=== PATIENT | female | born 1960 | race Caucasian/White ===

== ENCOUNTER → 2016-12-15 | Outpatient (CLI) | payer BC ==
[2016-12-15 08:09] LABS: CH 31.3; CHCM 33.2; HCT 43.7 % (34.0-46.0); HDW 2.66; HGB 14.1 gm/dL (11.4-16.0); MCH 30.6 pg (25.0-35.0); MCHC 32.4 g/dL (31.0-37.0); MCV 94.5 fL (80.0-100.0); Mean Platelet Volume 7.5; RBC 4.62 m/uL (3.80-5.40); RDW 13.3 % (11.5-15.5)
[2016-12-15 08:12] LABS: Partial Thromboplastin Time 23.6 sec (22.0-30.0); Prothrombin Time 10.1 sec (9.0-12.0)
[2016-12-15 08:23] LABS: Appearance,Urine Clear (Clear); Bilirubin,Urine Negative (Negative); Glucose,Urine (UA) Negative (Negative); Ketones,Urine Negative (Negative); Leukocyte Esterase,Urine Negative (Negative); Nitrite,Urine Negative (Negative); Protein,Urine Negative (Negative); Specific Gravity,Urine 1.019 (1.001-1.035); UA Billing (MACRO vs. MICRO) CHEM; Urobilinogen,Urine <2.0 mg/dL (<2.0)
== END | disposition home or self-care (01) ==
LOC: LABWHC1 07:08
PROVIDERS: ATTEND Neurological Surgery
DX: M47.812 Spondylosis without myelopathy or radiculopathy, cervical region (principal)
CPT/HCPCS: 36415; 81003; 85027; 85610; 85730; 87086; 93005

== ENCOUNTER → 2017-01-19 | Outpatient (CLI) | payer BC ==
[2017-01-19 13:31] VITALS: BP 143/85; PULSE 88; RESP 18; TEMP 98; BMI 44.4
--- NOTE | 2017-02-22 23:37 | P.PN ---
Progress Note - Text DATE OF SERVICE: 01/19/2017. CHIEF COMPLAINT: Bariatric Assessment. HISTORY OF PRESENT ILLNESS: Claire Nix is a 56-year-old female with a previous history of adjustable gastric band and subsequent removal. She reports severe gastroesophageal reflux disease including diabetes type 2, insulin-dependent. At her height of 5 feet 7-1/2 inches, her ideal body weight is 158 pounds. Her highest weight was 318 pounds. Today she comes in weighing 288 pounds. She has maintained a 30 pound weight loss. Percent excess weight loss is 19%. Body mass index is reduced from 49.1 down to 44.5. Total BMI point reduction 4.7. She is still 130 pounds overweight. Incidentally, she had recent spinal surgery for which she is wearing a soft collar. She states she has been cleared by her neurosurgeon to proceed with her gastric bypass. Now she comes in primarily to evaluate for gastric bypass to both address obesity as well as her reflux disease. PAST MEDICAL HISTORY: 1. Morbid obesity. 2. Diabetes type 2, noninsulin dependent. 3. Panniculitis. 4. Obstructive sleep apnea. 5. Osteoarthritis of the bilateral knees. 6. Osteoarthritis of the lower back. 7. Hypertension. 8. Gastroesophageal reflux disease. 9. Hiatal hernia. PAST SURGICAL HISTORY: 1. Adjustable gastric band with multiple revisions x3. 2. . 3. Tonsillectomy. 4. Colonoscopy one year ago. 5. Cervical fusion spinal surgery. MEDICATIONS: 1. Insulin. 2. Lisinopril. ALLERGIES: None listed. SOCIAL HISTORY: Former tobacco use. FAMILY HISTORY: Pertinent for morbid obesity including diabetes and hypertensive heart disease. REVIEW OF SYSTEMS: CONSTITUTIONAL: [place] body weight is 158 pounds for 5 feet 7-1/2 inches frame. Highest weight of 318 pounds. Present weight 288 pounds. Body mass index reduced from 49.1 down to 44.5. MUSCULOSKELETAL: History of recent cervical fusion spinal surgery, now in a soft collar. She has been cleared by her neurosurgeon. ENDOCRINE: History of insulin-dependent diabetes type 2. GASTROINTESTINAL: Has gastroesophageal reflux disease including diaphragmatic hiatal hernia. HEENT: No active troubles with vision or hearing. No reports of dysphagia. RESPIRATORY: Has obstructive sleep apnea. No recent pneumonia. Former tobacco user. CARDIOVASCULAR: No recent chest pain or heart attack or palpitations. NEURO: No reports of stroke or seizure disorders. PSYCH: No reports of active depression or suicidal ideation. No reports of anxiety. HEMATOLOGIC: No reports of easy bruising or bleeding. PHYSICAL EXAM: VITAL SIGNS: 98.08, 80, 16, 143/85, 5 feet 7-1/2 inches, 288 pounds. Body mass index of 44.5. ABDOMEN: Soft, nontender, nondistended. GENERAL: Well-developed female in no acute distress. HEENT: No scleral icterus. Extraocular movements grossly intact. Moist buccal mucosa. NECK: Soft cervical spine collar. No adenopathy. CHEST: Nonlabored respirations with equal bilateral excursions. CARDIOVASCULAR: Regular rate and rhythm. ABDOMEN: Obese, soft, nontender, nondistended. Multiple incisions noted. Pannus extends over pubis by over 8 cm with moderate hyperemia consistent with panniculitis. MUSCULOSKELETAL: No clubbing, cyanosis, or edema. NEURO: No focal or lateralizing signs. PSYCH: Appropriate affect. Alert and oriented to person, place, and time. LABS: Hemoglobin was normal at 14.1. Urinalysis is negative. EKG demonstrates normal sinus rhythm. Microbiology was negative for bacteria or urinary tract infection. ASSESSMENT: 1. Morbid obesity due to excess calories. 2. Body mass index reduced from 49.2 down to 44.5. 3. Dietary surveillance and counseling. 4. Obstructive sleep apnea. 5. Diabetes type 2, non-insulin dependent. 6. Osteoarthritis of the bilateral knees. 7. History of right knee effusion. 8. Osteoarthritis of the bilateral feet. 9. Panniculitis. 10. Family history of morbid obesity. 11. Family history of thyroid disorder. 12. Gastroesophageal reflux disease. 13. Intolerance to omeprazole. 14. History of hypothyroidism. 15. Osteoarthritis of lower back. 16. History of complications from adjustable gastric band. 17. Obstructive sleep apnea. PLAN: 1. I have gone over the [place] [facility]ariat[facility] surgery collaborative regarding complications and risk, between sleeve and Bobby-en-Y gastric bypass. As she is revisional procedure she is at high risk for leaks including strictures and infection. 2. Inpatient hospitalization anticipated for 2 nights. 3. DVT prophylaxis. 4. Antibiotic prophylaxis. 5. She has already obtained clearance from her neurosurgeon with regards to recent neck surgery and she will continue to wear soft collar. 6. She will have strict 4 weeks recovery after her weight loss procedure. 7. Recommend high-protein 2 week protein diet of 800 kcal. 8. Will need a CPAP machine for hospitalization.
== END | disposition home or self-care (01) ==
LOC: BARWHC3 13:14
PROVIDERS: ATTEND Surgery Plastic and Reconstructive Surgery
DX: Z01.818 Encounter for other preprocedural examination (principal); I10 Essential (primary) hypertension
CPT/HCPCS: 99211

== ENCOUNTER → 2017-01-24 | Outpatient (CLI) | payer BC ==
[2017-01-24 13:02] VITALS: BMI 45.2
== END | disposition home or self-care (01) ==
LOC: BARWHC3 09:00
PROVIDERS: ATTEND Surgery Plastic and Reconstructive Surgery
DX: E66.01 Morbid (severe) obesity due to excess calories (principal); Z71.3 Dietary counseling and surveillance; Z68.42 Body mass index [BMI] 45.0-49.9, adult
CPT/HCPCS: 97804

== ENCOUNTER → 2017-02-07 | Outpatient (CLI) | payer BC ==
[2017-02-07 08:38] LABS: Basophils # (A) 0.1 k/uL (0-0.2); Basophils % (A) 1 %; CHCM 33.7; Eosinophils # (A) 0.2 k/uL (0-0.7); Eosinophils % (A) 3 %; HCT 45.1 % (34.0-46.0); HGB 15.1 gm/dL (11.4-16.0); Luc # (Auto) 0.16; Luc % (Auto) 2; Lymphocytes # (A) 2.3 k/uL (1.0-4.8); Lymphocytes % (A) 28 %; MCHC 33.5 g/dL (31.0-37.0); MCV 92.5 fL (80.0-100.0); Mean Platelet Volume 7.3; Monocytes # (A) 0.4 k/uL (0-1.0); Monocytes % (A) 5 %; Neutrophils # (A) 5.1 k/uL (1.3-7.7); Neutrophils % (A) 61 %; RBC 4.88 m/uL (3.80-5.40); RDW 13.3 % (11.5-15.5); WBC 8.3 k/uL (3.8-10.6); WBC (Perox) 8.53
[2017-02-07 09:07] LABS: ALT 55 U/L (9-52); AST 41 U/L (14-36); Alkaline Phosphatase 88 U/L (38-126); Anion Gap 12 mmol/L; Blood Urea Nitrogen 18 mg/dL (7-17); Calcium 9.9 mg/dL (8.4-10.2); Carbon Dioxide 22 mmol/L (22-30); Chloride 104 mmol/L (98-107); Glucose 116 mg/dL (74-99); Non-African American GFR(MDRD) >60 (>60 ml/min/1.73 sqM); Potassium 4.5 mmol/L (3.5-5.1); Sodium 138 mmol/L (137-145); Total Bilirubin 0.7 mg/dL (0.2-1.3); Total Protein 7.9 g/dL (6.3-8.2)
== END | disposition home or self-care (01) ==
LOC: LABWHC1 08:13
PROVIDERS: ATTEND Surgery Plastic and Reconstructive Surgery
DX: Z01.812 Encounter for preprocedural laboratory examination (principal); I10 Essential (primary) hypertension; Z71.3 Dietary counseling and surveillance
CPT/HCPCS: 80053; 83036; 84439; 84443; 85025

== ENCOUNTER 2017-02-14 05:57 | Inpatient (IN) | payer BC ==
[~2017-02-14 05:57] MED LIST: DEXAMETHASONE SOD PHOSPHATE 10 MG/ML 1 ML VIAL IV ONE; LIDOCAINE 1% 20 ML VIAL (10MG/ML) FOR IV START INTRADERMA PRN; MIDAZOLAM 2 MG/2 ML VIAL IV PRN; SCOPOLAMINE 1.5MG/72HR PATCH TRANSDERM ONE
[2017-02-14] MEDS ORDERED: PANTOPRAZOLE 40 MG/10 ML VIAL IV STA (06:01)
[2017-02-14] MEDS ORDERED: CHLORHEXIDINE GLUCONATE 15 ML CUP MUCOUS MEM ONE (06:01)
[2017-02-14] MEDS ORDERED: ENOXAPARIN 40 MG/0.4 ML SYRINGE SQ STA (06:01)
[2017-02-14] MEDS ORDERED: ACETAMINOPHEN IV (For NPO) 1,000 MG in EMPTY BAG 1 BAG IVPB ONE (06:01)
--- NOTE | 2017-02-14 06:07 | P.GSHP ---
History of Present Illness H&P Date: 02/14/17 DATE OF SERVICE: 02/14/2017. CHIEF COMPLAINT: Bariatric assessment. HISTORY OF PRESENT ILLNESS: Claire Nix is a 56-year-old female who comes in with morbid obesity. She has tried other options for weight loss, including medical and surgical without improvement of her symptoms. She actually has severe gastroesophageal reflux disease. At her height of 5 feet 7-1/2 inches, her ideal body weight is up 158 pounds. She comes in today weighing 277 pounds. Her highest weight was 318 pounds. She has maintained a 40 pound weight loss. Body mass index is reduced from 49 down to 43.5. She has history of previous adjustable band and now presents for a gastric bypass. PAST MEDICAL HISTORY: 1. Morbid obesity. 2. Diabetes type 2, noninsulin dependent. 3. Panniculitis. 4. Obstructive sleep apnea. 5. Osteoarthritis of the bilateral knees. 6. Osteoarthritis of the lower back. 7. Hypertension. 8. Gastroesophageal reflux disease. 9. Hiatal hernia. PAST SURGICAL HISTORY: 1. Adjustable gastric band with multiple revisions x3. 2. . 3. Tonsillectomy. 4. Colonoscopy one year ago. MEDICATIONS: 1. Omeprazole. 2. Metformin. 3. Hypertensive medications. ALLERGIES: None listed. SOCIAL HISTORY: Former tobacco use. FAMILY HISTORY: Pertinent for morbid obesity including diabetes and hypertensive heart disease. REVIEW OF SYSTEMS: CONSTITUTIONAL: Eldridge body weight of 158 pounds. Highest weight of 318 pounds. Present weight is 277 pounds. Maintained weight loss is 40 pounds. Percent weight loss of 19%. Eldridge body weight of 158 pounds. Highest BMI 48.6. GASTROINTESTINAL: Has gastroesophageal reflux disease including diaphragmatic hiatal hernia. HEENT: No active troubles with vision or hearing. No reports of dysphagia. ENDOCRINE: History of diabetes type 2. There is a family history of thyroid disorder. RESPIRATORY: Has obstructive sleep apnea. No recent pneumonia. Former tobacco user. CARDIOVASCULAR: No recent chest pain or heart attack or palpitations. MUSCULOSKELETAL: Has osteoarthritis of the lower back, feet including knees. Has a knee effusion of the right side. NEURO: No reports of stroke or seizure disorders. PSYCH: No reports of active depression or suicidal ideation. No reports of anxiety. HEMATOLOGIC: No reports of easy bruising or bleeding. PHYSICAL EXAM: VITAL SIGNS: 97.8, 67, 161/101, 12. Weight 277 pounds. Height 5 feet 7-1/2 inches. ABDOMEN: Soft, nontender, nondistended. GENERAL: Well-developed female in no acute distress. HEENT: No scleral icterus. Extraocular movements grossly intact. Moist buccal mucosa. NECK: Supple without lymphadenopathy. CHEST: Nonlabored respirations with equal bilateral excursions. CARDIOVASCULAR: Regular rate and rhythm. ABDOMEN: Obese, soft, nontender, nondistended. Multiple incisions noted. Pannus extends over pubis by over 8 cm with moderate hyperemia consistent with panniculitis. MUSCULOSKELETAL: No clubbing, cyanosis, or edema. NEURO: No focal or lateralizing signs. PSYCH: Appropriate affect. Alert and oriented to person, place, and time. STUDIES: Upper endoscopy consistent with gastroesophageal reflux disease including superficial duodenal ulcers. Severe and chronic gastritis was identified. Pathology: Pathology report was consistent with chronic duodenitis without H. pylori bacteria. No evidence of sprue-like changes noted. ASSESSMENT: 1. Morbid obesity due to excess calories. 2. Body mass index 43.5. 3. Dietary surveillance and counseling. 4. Obstructive sleep apnea. 5. Diabetes type 2, non-insulin dependent. 6. Osteoarthritis of the bilateral knees. 7. History of right knee effusion. 8. Osteoarthritis of the bilateral feet. 9. Panniculitis. 10. Family history of morbid obesity. 11. Family history of thyroid disorder. 12. Gastroesophageal reflux disease. 13. Intolerance to omeprazole. 14. History of hypothyroidism. 15. Osteoarthritis of lower back. PLAN: 1. She has been discontinued off omeprazole and started on Zantac instead. 2. With her symptoms, she is evaluating for a Bobby-en-Y gastric bypass. [place] [facility] including outcomes were reviewed for comorbidity resolution including severity of complications. 3. As she is a revisional procedure, increased risk of leaks including gastric stricture was identified and reviewed. 4. Inpatient hospitalization greater than 2 nights advised. 5. DVT prophylaxis. 6. Antibiotic prophylaxis. Past Medical History Past Medical History: Diabetes Mellitus, GERD/Reflux, Hypertension, Osteoarthritis (OA), Sleep Apnea/CPAP/BIPAP Additional Past Medical History / Comment(s): "borderline thyroid" History of Any Multi-Drug Resistant Organisms: None Reported Past Surgical History: Bariatric Surgery, Section, Orthopedic Surgery, Tonsillectomy Additional Past Surgical History / Comment(s): lap band placed/3 follow up surgeries then later removed, anterior cervical fusion 12/22/16, Past Anesthesia/Blood Transfusion Reactions: No Reported Reaction Past Psychological History: No Psychological Hx Reported Smoking Status: Former smoker Past Alcohol Use History: Rare Additional Past Alcohol Use History / Comment(s): quit smoking 20 years ago, smoked for 15 yrs, 1 PPD Past Drug Use History: None Reported - Past Family History Father Family Medical History: Diabetes Mellitus, Thyroid Disorder Mother Family Medical History: Pulmonary Embolus Medications and Allergies Home Medications Medication Instructions Recorded Confirmed Type Lisinopril [Lisinopril] 10 mg PO QAM 08/24/16 02/09/17 History metFORMIN HCL [Glucophage] 500 mg PO DAILY 08/24/16 02/09/17 History Cholecalciferol [Vitamin D3] 5,000 unit PO DAILY 02/09/17 02/09/17 History Cyanocobalamin (Vitamin B-12) 2,500 mcg PO DAILY 02/09/17 02/09/17 History [Vitamin B12] Nystatin 100,000 Unit/gm Powd 1 applic TOPICAL BID PRN 02/09/17 02/09/17 History [Mycostatin Powder] Allergies Allergy/AdvReac Type Severity Reaction Status Date / Time Sulfa (Sulfonamide Allergy skin turns Verified 02/09/17 09:21 Antibiotics) red,lethargic environmental allergies Allergy Unknown Uncoded 02/09/17 09:21
[2017-02-14] MEDS ORDERED: LIDOCAINE 1% 20 ML VIAL (10MG/ML) FOR IV START INTRADERMA ONE (06:43)
[2017-02-14] MEDS: LACTATED RINGERS 1,000 ML IV SCH ×3 (06:43→12:14)
[2017-02-14 06:50] LABS: Glucose,Whole Blood 121 mg/dL (75-99)
[2017-02-14] MEDS: ONDANSETRON 4 MG/2 ML VIAL IVP ONE ×2 (06:52→11:01)
[2017-02-14] MEDS ORDERED: fentaNYL (PF) 50 MCG/ML 2 ML AMP ONE (07:30)
[2017-02-14] MEDS: ceFAZolin 2 GM in SODIUM CHLORIDE 0.9% 100 ML IVPB ONE ×2 (07:30→07:34)
[2017-02-14] MEDS ORDERED: PROPOFOL 10 MG/ML 20 ML VIAL IV ONE (07:30)
[2017-02-14] MEDS ORDERED: PHENYLEPHRINE-0.9% NACL SYG 1 MG/10 ML SYRINGE ONE (07:30)
[2017-02-14] MEDS ORDERED: MIDAZOLAM 2 MG/2 ML VIAL ONE (07:30)
[2017-02-14] MEDS ORDERED: ROCURONIUM BROMIDE 10 MG/ML 10 ML VIAL IV ONE (07:30)
[2017-02-14] MEDS ORDERED: SUCCINYLCHOLINE CHLORIDE VIAL 200 MG/10 ML VIAL IV ONE (07:30)
[2017-02-14] MEDS ORDERED: HYDROmorphone (PF) 1 MG/ML ONE (07:30)
[2017-02-14] MEDS ORDERED: LIDOCAINE 1% INJ 10MG/ML (20 ML MDV) ONE (07:30)
[2017-02-14] MEDS ORDERED: NEOSTIGMINE 1 MG/ML 10 ML VIAL ONE (07:30)
[2017-02-14] MEDS ORDERED: GLYCOPYRROLATE 0.2 MG/ML 2 ML VIAL ONE (07:30)
[2017-02-14] MEDS ORDERED: ePHEDrine 50 MG/ML 1 ML AMP ONE (07:30)
[2017-02-14] MEDS ORDERED: BUPIVACAIN-EPI 0.25%-1:200,000 30 ML VIAL SQ ONE ×2 (07:56→07:58)
[2017-02-14] MEDS ORDERED: LACTATED RINGERS 1,000 ML IV ONE ×2 (08:09→09:46)
--- NOTE | 2017-02-14 10:50 | P.PCN ---
Date of Procedure: 02/14/17 Preoperative Diagnosis: Morbid obesity Postoperative Diagnosis: Morbid obesity, intra-abdominal adhesions Procedure(s) Performed: Laparoscopic lysis of adhesions over 30 minutes, laparoscopic gastric bypass 75 cm antecolic antigastric, partial gastrectomy, proximal, intraoperative EGJ Anesthesia: GETA, local Surgeon: Roya Senior Estimated Blood Loss (ml): 20 Pathology: none sent Condition: stable Disposition: floor Operative Findings: Orogastric tube found within the staple line excised with partial gastrectomy, 18 cm placement of ports 22 cm thoracic length, 75 cm Bobby limb
[2017-02-14] MEDS: HYDROmorphone 1 MG/ML 1 ML SYRINGE IVP PRN ×8 (11:03→23:00)
[2017-02-14] MEDS: MAGNESIUM SULFATE-D5W PMX 1 GM in DEXTROSE/WATER 1 100ML.BAG IVPB SCH ×2 (11:08→12:25)
[2017-02-14] MEDS ORDERED: ONDANSETRON 4 MG/2 ML VIAL IVP PRN (11:26)
[2017-02-14] MEDS ORDERED: HYOSCYAMINE ORAL DROPS 1.875 MG/15 ML BOTTLE PO PRN (11:26)
[2017-02-14] MEDS ORDERED: SIMETHICONE 40 MG/0.6 ML DROPS 2,000 MG/30 ML BOTTLE PO PRN (11:26)
[2017-02-14] MEDS ORDERED: diphenhydrAMINE 50 MG/ML 1 ML VIAL IVP PRN (11:26)
[2017-02-14] MEDS ORDERED: NALOXONE 0.4 MG/ML 1 ML VIAL IV PRN (11:26)
[2017-02-14] MEDS ORDERED: INSULIN LISPRO (humaLOG) 300 UNIT/3 ML VIAL SQ ONE (11:28)
[2017-02-14 11:30] LABS: Glucose,Whole Blood 211 mg/dL (75-99)
[2017-02-14] MEDS ORDERED: diphenhydrAMINE 50 MG/ML 1 ML VIAL IVP ONE (11:32)
[2017-02-14] MEDS: 0.9% NACL WITH KCL 20 MEQ/L 1,000 ML IV SCH ×2 (12:24→20:22)
[2017-02-14] MEDS: ALBUTEROL NEBULIZED 2.5 MG/3 ML INHALATION SCH ×3 (13:39→19:54)
[2017-02-14] MEDS: INSULIN LISPRO (humaLOG) 300 UNIT/3 ML VIAL SQ SCH ×2 (14:11→17:51)
[2017-02-14] MEDS: metroNIDAZOLE-NS PMX 500 MG in SALINE 1 100ML.BAG IVPB SCH (16:03)
[2017-02-14 16:15] VITALS: BMI 43.1
[2017-02-14] MEDS: ceFAZolin 3 GM in SODIUM CHLORIDE 0.9% 100 ML IVPB SCH (17:06)
[2017-02-14 17:39] LABS: Glucose,Whole Blood 176 mg/dL (75-99)
[2017-02-14 20:04] LABS: Glucose,Whole Blood 143 mg/dL (75-99)
[2017-02-15] MEDS: metroNIDAZOLE-NS PMX 500 MG in SALINE 1 100ML.BAG IVPB SCH ×3 (00:52→16:24)
[2017-02-15] MEDS: ceFAZolin 3 GM in SODIUM CHLORIDE 0.9% 100 ML IVPB SCH ×3 (01:55→17:13)
[2017-02-15] MEDS: HYDROmorphone 1 MG/ML 1 ML SYRINGE IVP PRN ×2 (03:43→19:58)
[2017-02-15] MEDS: 0.9% NACL WITH KCL 20 MEQ/L 1,000 ML IV SCH ×2 (04:20→07:49)
[2017-02-15] MEDS: LACTATED RINGERS 1,000 ML IV SCH ×2 (05:50→05:51)
[2017-02-15 06:53] LABS: Glucose,Whole Blood 124 mg/dL (75-99)
[2017-02-15] MEDS: INSULIN LISPRO (humaLOG) 300 UNIT/3 ML VIAL SQ SCH ×4 (07:29→22:01)
[2017-02-15 07:43] LABS: Basophils % (A) 0 %; CH 30.9; Eosinophils % (A) 0 %; HCT 36.8 % (34.0-46.0); HDW 2.68; HGB 12.7 gm/dL (11.4-16.0); Luc # (Auto) 0.11; Luc % (Auto) 1; Lymphocytes # (A) 1.6 k/uL (1.0-4.8); Lymphocytes % (A) 15 %; MCH 31.5 pg (25.0-35.0); MCHC 34.5 g/dL (31.0-37.0); MCV 91.4 fL (80.0-100.0); Mean Platelet Volume 7.7; Monocytes # (A) 0.6 k/uL (0-1.0); Monocytes % (A) 5 %; Neutrophils # (A) 8.1 k/uL (1.3-7.7); Neutrophils % (A) 78 %; RBC 4.03 m/uL (3.80-5.40); RDW 13.9 % (11.5-15.5); WBC 10.4 k/uL (3.8-10.6); WBC (Perox) 11.06
[2017-02-15] MEDS: ENOXAPARIN 40 MG/0.4 ML SYRINGE SQ SCH ×2 (07:43→22:01)
[2017-02-15] MEDS: LISINOPRIL 10 MG TAB PO SCH ×2 (07:43→07:51)
[2017-02-15] MEDS: PANTOPRAZOLE 40 MG/10 ML VIAL IV SCH (07:43)
[2017-02-15 07:59] LABS: Anion Gap 10 mmol/L; Blood Urea Nitrogen 8 mg/dL (7-17); Calcium 8.7 mg/dL (8.4-10.2); Carbon Dioxide 24 mmol/L (22-30); Chloride 106 mmol/L (98-107); Magnesium 2.2 mg/dL (1.6-2.3); Non-African American GFR(MDRD) >60 (>60 ml/min/1.73 sqM); Phosphorous 3.3 mg/dL (2.5-4.5); Potassium 4.6 mmol/L (3.5-5.1); Sodium 140 mmol/L (137-145)
[2017-02-15 08:11] LABS: Hemoglobin A1C 6.9 % (4.2-6.1)
[2017-02-15] MEDS: HYDROcodone/APAP 15 ML SOLUTION PO PRN ×2 (08:47→16:24)
[2017-02-15] MEDS ORDERED: SODIUM CHLORIDE 0.9% 1,000 ML BAG ONE (08:56)
[2017-02-15] MEDS: 1: MVI, ADULT NO.4 WITH VIT K 10 ML, THIAMINE 100 MG, FOLIC ACID 1 MG, POTASSIUM CHLORID IV SCH ×12 (08:56→17:16)
[2017-02-15] MEDS: ALBUTEROL NEBULIZED 2.5 MG/3 ML INHALATION SCH ×4 (10:50→19:50)
[2017-02-15 11:23] LABS: Glucose,Whole Blood 118 mg/dL (75-99)
--- NOTE | 2017-02-15 13:08 | P.PN ---
Subjective A 56-year-old female being seen on rounds this morning is currently resting in bed. Patient states has been up to the bathroom but not in the hallway. Patient reports having surgical tenderness. Patient is postop done on February 14 Laparoscopic lysis of adhesions over 30 minutes, laparoscopic gastric bypass 75 cm antecolic antigastric, partial gastrectomy, proximal, intraoperative EGJ for morbid obesity with intra-abdominal adhesions Objective - Vital Signs Vital signs: Vital Signs Temp 98.5 F 02/15/17 07:00 Pulse 70 02/15/17 08:00 Resp 16 02/15/17 08:00 BP 111/77 02/15/17 07:00 Pulse Ox 95 02/15/17 07:00 Intake & Output 02/14/17 02/15/17 02/15/17 18:59 06:59 18:59 Intake Total 2389 1550 20 Output Total 845 440 700 Balance 1544 1110 -680 Weight 124.829 kg Intake: IV 2389 1550 0.9% NaCl with KCl 20 Meq 1350 /l 1,000 ml @ 150 mls/hr IV .[id number] [facility] Rx#: [id number] ceFAZolin 2 gm In Sodium 100 Chloride 0.9% 100 ml @ 100 mls/hr IVPB ONCE ONE Rx#:[id number] metroNIDAZOLE-NS PMX 500 100 mg In Saline 1 100ml.bag @ 100 mls/hr IVPB Q8HR [facility] Rx#:[id number] Oral 20 Output: Drainage 40 Left Lower 40 Urine 825 400 700 Uretheral (Fontaine) 400 700 Estimated Blood Loss 20 Other: Voiding Method Indwelling Catheter Indwelling Catheter Indwelling Catheter - Exam Physical exam 56-year-old female resting in bed with a cervical collar in place appears in no acute distress Lungs essentially clear with adequate air movement currently on room air sats are 95% Heart S1-S2 audible and regular Abdomen obese soft surgical sites no redness slight surgical tenderness tolerating clear liquid diet states passing gas no stool states urinating no difficulty Extremities a trace pedal edema bilaterally - Labs CBC & Chem 7: 02/15/17 07:00 02/15/17 07:00 Labs: Abnormal Lab Results - Last 24 Hours (Table) 02/14/17 02/14/17 02/15/17 Range/Units 17:38 20:02 06:46 Neutrophils # (1.3-7.7) k/uL POC Glucose (mg/dL) 176 H 143 H 124 H (75-99) mg/dL Hemoglobin A1c (4.2-6.1) % 02/15/17 02/15/17 02/15/17 Range/Units 07:00 07:00 11:21 Neutrophils # 8.1 H (1.3-7.7) k/uL POC Glucose (mg/dL) 118 H (75-99) mg/dL Hemoglobin A1c 6.9 H (4.2-6.1) % Assessment and Plan Plan: Impression Postop February 14 2017 Laparoscopic lysis of adhesions over 30 minutes, laparoscopic gastric bypass 75 cm antecolic antigastric, partial gastrectomy, proximal, intraoperative EGJ for morbid obesity Morbid obesity BMI 43 type 2 diabetes [id number] Obstructive sleep apnea Hiatal hernia Adjustable gastric band with multiple revisions 3 Osteoarthritis of the bilateral knees and the lower back Hypertension essential Gastroesophageal reflux disease A recent 2 month prior cervical surgery Panniculitis Plan Continue postop surgical care as ordered Increase activity to the level of tolerance DVT and GI prophylaxis Antibiotics prophylaxis Inpatient hospitalization 2 nights advised Further recommendations pending The above dictated assessment and findings were discussed with dr Parrish Malcolm and the plan of care have been dictated as directed. Bev Golden nurse practitioner acting as a scribe for Dr. Senior
[2017-02-15 16:27] LABS: Glucose,Whole Blood 116 mg/dL (75-99)
[2017-02-15 20:13] LABS: Glucose,Whole Blood 131 mg/dL (75-99)
[2017-02-16] MEDS: metroNIDAZOLE-NS PMX 500 MG in SALINE 1 100ML.BAG IVPB SCH ×2 (00:07→10:13)
[2017-02-16] MEDS: HYDROmorphone 1 MG/ML 1 ML SYRINGE IVP PRN (01:05)
[2017-02-16] MEDS: ceFAZolin 3 GM in SODIUM CHLORIDE 0.9% 100 ML IVPB SCH ×2 (01:10→07:45)
[2017-02-16 02:28] VITALS: RESP 16
[2017-02-16] MEDS: 1: MVI, ADULT NO.4 WITH VIT K 10 ML, THIAMINE 100 MG, FOLIC ACID 1 MG, POTASSIUM CHLORID IV SCH ×12 (05:05→05:06)
[2017-02-16] MEDS: LACTATED RINGERS 1,000 ML IV SCH (05:07)
[2017-02-16 07:00] LABS: Glucose,Whole Blood 95 mg/dL (75-99)
[2017-02-16] MEDS: ALBUTEROL NEBULIZED 2.5 MG/3 ML INHALATION SCH ×2 (07:00→12:05)
[2017-02-16] MEDS: LISINOPRIL 10 MG TAB PO SCH (07:45)
[2017-02-16] MEDS: PANTOPRAZOLE 40 MG/10 ML VIAL IV SCH (07:45)
[2017-02-16] MEDS: INSULIN LISPRO (humaLOG) 300 UNIT/3 ML VIAL SQ SCH (07:52)
[2017-02-16] MEDS ORDERED: BISACODYL 5 MG TABLET.DR PO PRN (08:00)
--- NOTE | 2017-02-16 08:08 | P.OP ---
Date of Procedure: 02/14/17 Description of Procedure: SURGEON: ERNESTINE MINOR MD HAND MOLDER: AKASH BROWN PREOPERATIVE DIAGNOSES: 1. Morbid obesity due to excess calories. 2. Body mass index 43.1. 3. Dietary surveillance and counseling. 4. Obstructive sleep apnea. 5. Diabetes type 2, non-insulin dependent. 6. Osteoarthritis of the bilateral knees. 7. History of right knee effusion. 8. Osteoarthritis of the bilateral feet. 9. Panniculitis. 10. Family history of morbid obesity. 11. Family history of thyroid disorder. 12. Gastroesophageal reflux disease. 13. Intolerance to omeprazole. 14. History of hypothyroidism. 15. Osteoarthritis of lower back. 16. Osteoarthritis of the cervical spine. POSTOPERATIVE DIAGNOSES: 1. Morbid obesity due to excess calories. 2. Body mass index 43.1. 3. Dietary surveillance and counseling. 4. Obstructive sleep apnea. 5. Diabetes type 2, non-insulin dependent. 6. Osteoarthritis of the bilateral knees. 7. History of right knee effusion. 8. Osteoarthritis of the bilateral feet. 9. Panniculitis. 10. Family history of morbid obesity. 11. Family history of thyroid disorder. 12. Gastroesophageal reflux disease. 13. Intolerance to omeprazole. 14. History of hypothyroidism. 15. Osteoarthritis of lower back. 16. Osteoarthritis of the cervical spine. 17. Intra-abdominal and peritoneal adhesions. OPERATION: 1. Laparoscopic lysis of adhesions, over 30 minutes. 2. Laparoscopic Bobby-en-Y gastric bypass, 75 cm antecolic antegastric Bobby limb. 3. Intraoperative esophagogastrojejunoscopy. 4. Laparoscopic partial gastrectomy, proximal stomach. ANESTHESIA: General with 90 mL 0.25% Marcaine with epinephrine. ESTIMATED BLOOD LOSS: 20 mL SPECIMENS REMOVED: Partial gastrectomy, proximal stomach. COMPLICATIONS: None. INDICATIONS: The patient is a pleasant 50-year-old female with a history of morbid obesity. She initially presented to the [facility] with complications from her adjustable gastric band with severe gastroesophageal reflux disease. She had her band removal prior. Now she presents for conversion to a Bobby-en-Y gastric bypass. Benefits and risks of the procedure, including increased risk for leak, surgical complications, nausea, vomiting, gastrointestinal anastomotic stricture, were described at length via a second-generation bariatric consent form. She had given informed consent. DESCRIPTION: The patient was brought into the operating room theater. She was placed on a split leg table. Preoperatively she had received Lovenox subcutaneously for DVT prophylaxis. Additionally she had undergone Peridex oral solution as an oral decontaminant. After general induction, the abdomen was prepped and draped in standard sterile fashion. A Fontaine catheter was placed. At her height of approximately 5 feet 7.5 inch, her height from her xiphoid to her umbilicus was 22 cm. Initial attention was brought along the left upper quadrant, whereby a 0-degree 10 mm trocar laparoscopic trocar entry was performed at the left upper abdomen. The abdominal cavity was entered. Next a separate 12 mm port was placed along the midclavicular line under direct visualization. Dense adhesions were found along the proximal portion of the stomach consistent with her prior adjustable gastric band. Next a 12 mm port was placed approximately 18 cm distally and off to the left of midline for placement of the camera port. Additional two 12 mm trocars were placed along the right upper abdomen at the right costal margin including the right midclavicular line in a V-type fashion. No hepatomegaly was identified. Placement of a medium-sized George liver retractor was used to elevate the left lobe of the liver for greater visualization of the upper abdomen, particularly the superior pole of the stomach. The George liver retractor was held in place using an iron data analysis intern. Initially dense adhesions were found of the stomach to the inferior portion of the liver, for which careful lysis of adhesions occurred for complete exposure of the superior pole of the stomach. Extensive lysis of adhesion occurred for over 30 minutes. No gastrostomy had occurred during this portion of the case. Along the lesser curvature of the stomach between the second and third veins, dissection was made along the retrogastric space to allow first firing of the Covidien Tri-Staple purple load. Once adequately mobilized, an initial firing using a 60 mm purple load was performed perpendicular to the lesser curvature of the stomach. To completely divide the pouch from the remnant stomach, tissue reinforced 60 mm purple loads were fired towards the angle of His; additional extensive lysis of adhesions was performed to adequately visualize and divide the stomach. Along the superior staple line of the gastric pouch and remnant, a nasogastric tube was found incorporated along the staple line. The nasogastric tube was dissected and cut out from the gastric pouch and remnant. The nasogastric tube was removed by the nurse toll settlement clerk. Additional staplers were used to resect the proximal portion of the remnant stomach for a partial gastrectomy. The gastric pouch was revised closing the defect. Once the stomach was completely divided, attention was brought to placement of the Orvil. Using the help of the nurse toll settlement clerk, a 25 mm Orvil was placed along the posterior oropharynx and advanced into the pouch. The Orvil was placed anterior to the staple line. A gastrotomy was created for removal of the tubing. Once the sutures were encountered these were divided and the tubing and Orvil were disconnected. Using aseptic technique all ports and instruments were exchanged with handling of the Orvil tubing. The transverse mesocolon, particularly of the omentum, was very thick. The patient had been flattened at this point. The transverse mesocolon, including the omentum, was reflected over the stomach. The ligament of Treitz was identified and measured 60 cm antegrade. The jejunum was divided at this point. The biliopancreatic limb was held in place by the dietitian assistant. The Bobby limb was then measured 75 cm distally. At 75 cm along the anti-mesenteric border of the Bobby limb, a jejunojejunostomy was proposed whereby enterotomies were created along the biliopancreatic limb including the Bobby limb. A bidirectional fire was performed whereby from the left and right side of the patient using two 45 mm campo loads, creating a 90 mm jejunojejunostomy. The defect was then closed using a 60 mm campo load. The jejunojejunostomy was found to be hemostatic. Attention was now brought to the creation of the gastrojejunostomy. Patient was then placed in reverse Trendelenburg. As the Orvil had been placed, the blind jejunal limb was brought proximally into the upper abdomen. No tension or torsion was found upon the Bobby limb, which was brought along the upper abdomen. The blind jejunal limb was opened using a cordless Harmonic scalpel. The 25 EEA stapler was brought through the left anterior lateral port site. The EEA stapler was brought through the open jejunal limb and its needle was deployed at the antimesenteric border where the anvil were mated for approximately 2 minutes upon firing. The stapler was removed. Donuts were found to be intact. Interrupted 2-0 Vicryl and Endo Stitch were used to reinforce the anastomosis. The open jejunal limb defect was closed using a 60 mm campo load. I then went to the head of the bed to perform the esophagogastrojejunoscopy and a leak test. An Olympus gastroscope was passed along the posterior oropharynx. The scope was passed down to the proximal portion of the pouch, whereby no active bleeding was encountered. Excellent visualization of the gastrojejunostomy anastomosis, including the Bobby limb was encountered for which endoscopic image was obtained. The anastomosis was found to be patent. The gastrointestinal tract was desufflated. No evidence of intraoperative leak was encountered. I then went back to the bedside of the patient, whereby with coordinated effort of the dietitian assistant, the fluid from the leak test was aspirated from the upper abdominal cavity. Closure of the mesenteric defects was performed, initially of the Rider defect using 2-0 silk on an Endo Stitch and a Lapra-Ty. Attention was brought to closure of the jejunojejunostomy mesenteric defect, which was also closed in a similar fashion. Tisseel was placed circumferentially over the anastomosis. A round #19 drain was placed anterior to the gastrojejunal anastomosis via entry of the left lateral right upper port site. A 2-0 nylon drain stitch was placed to tack the drain to the skin. Bulb suction was placed to the CJ tubing. All instruments and pneumoperitoneum were evacuated from the abdominal cavity. The port correlating with the EEA stapler device was copiously irrigated with 3 L of warm normal saline solution. The incision was also irrigated with 50 mL of hydrogen peroxide. The fascial defect was closed using a Reji Oconnell and 0 Vicryl in an interrupted fashion. Lower Brule drain was placed and tacked to the 2-0 Nylon along the left upper abdominal port corresponding to the EEA stapler. The rest of incisions were reapproximated using 3-0 Vicryl for deep subcutaneous tissue and dermis followed by 4-0 Monocryl in a running subcuticular fashion. Dermabond was applied to the skin. At the end of the procedure, needle, sponge and instrument count had been verified correct by the surgical scheduler. OptiFoam antibiotic dressing was placed along the left upper port site corresponding to EEA stapler. Total [id number] time of 164 minutes. The patient was deemed ASA2. She had tolerated the procedure well and was taken to the postanesthesia unit in stable condition. FINDINGS: 1. No moderate hepatomegaly. 2. Negative intraoperative esophagogastrojejunoscopy leak test. 3. Moderate adhesions of the upper abdomen, including at the upper pole of the stomach, necessitating at least 30+ minutes of additional lysis of adhesions. 4. Multiple staplers used for creation of her gastric pouch and partial gastrectomy. 5. Partial gastrectomy of superior pole of stomach performed to excise old adjustable gastric band cicatrix and to minimize any potential leaks or gastrogastric fistula.
[2017-02-16 08:14] VITALS: BP 125/67; TEMP 97.6
[2017-02-16] MEDS: ENOXAPARIN 40 MG/0.4 ML SYRINGE SQ SCH (09:14)
[2017-02-16] MEDS: HYDROcodone/APAP 15 ML SOLUTION PO PRN (09:14)
[2017-02-16 11:49] LABS: Glucose,Whole Blood 117 mg/dL (75-99)
[2017-02-16 12:14] VITALS: PULSE 79
--- NOTE | 2017-02-16 12:50 | P.DS ---
Providers Date of admission: 02/14/17 05:57 Expected date of discharge: 02/16/17 Attending physician: Roya Senior Primary care physician: [facility] Course: HISTORY OF PRESENT ILLNESS: Claire Nix is a 56-year-old female who comes in with morbid obesity. She has tried other options for weight loss, including medical and surgical without improvement of her symptoms. She actually has severe gastroesophageal reflux disease. At her height of 5 feet 7-1/2 inches, her ideal body weight is up 158 pounds. She comes in today weighing 277 pounds. Her highest weight was 318 pounds. She has maintained a 40 pound weight loss. Body mass index is reduced from 49 down to 43.5. She has history of previous adjustable band and now presents for a gastric bypass. Patient is postop done on February 14 Laparoscopic lysis of adhesions over 30 minutes, laparoscopic gastric bypass 75 cm antecolic antigastric, partial gastrectomy, proximal, intraoperative EGJ for morbid obesity with intra- abdominal adhesions There were no postop events head on the day of discharge patient was felt to be appropriate to be discharged home. It was stressed to the patient by the surgeon to stop taking her diabetic medication metformin and she would see the patient in the office this coming Tuesday Impression discharge diagnosis Postop February 14 2017 Laparoscopic lysis of adhesions over 30 minutes, laparoscopic gastric bypass 75 cm antecolic antigastric, partial gastrectomy, proximal, intraoperative EGJ for morbid obesity Morbid obesity BMI 43 type 2 diabetes [id number] Obstructive sleep apnea Hiatal hernia Adjustable gastric band with multiple revisions 3 Osteoarthritis of the bilateral knees and the lower back Hypertension essential Gastroesophageal reflux disease A recent 2 month prior cervical surgery Panniculitis Hypertension The above dictated assessment and findings were discussed with dr Senior. Impression and the plan of care have been dictated as directed. Bev Golden nurse practitioner acting as a scribe for dr senior Plan - Discharge Summary New Discharge Prescriptions: HYDROcodone/APAP [Meherrin Elixir 7.5-325Mg/15Ml] 15 ml PO Q4HR PRN #400 ml PRN Reason: Pain Omeprazole 40 mg PO DAILY #90 capsule. Discharge Medication List Lisinopril 10 mg PO QAM 08/24/16 [History] Nystatin 100,000 Unit/gm Powd [Mycostatin Powder] 1 applic TOPICAL BID PRN 02/09 [History] HYDROcodone/APAP [Meherrin Elixir 7.5-325Mg/15Ml] 15 ml PO Q4HR PRN #400 ml [Rx] Omeprazole 40 mg PO DAILY #90 capsule. 02/16/17 [Rx] Follow up Appointment(s)/Referral(s): Roya Senior MD [STAFF PHYSICIAN] - 02/18/17 8:00 am ([facility]) Activity/Diet/Wound Care/Special Instructions: Bariatric diet Do not take metformin Discharge Disposition: HOME SELF-CARE
--- NOTE | 2017-03-18 06:36 | P.PN ---
Subjective Principal diagnosis: Morbid obesity She is doing well. Her pain is well-controlled. No complaints. CJ is serosanguineous. Objective - Vital Signs Vital signs: Vital Signs Temp 97.4 F L 02/15/17 01:25 Pulse 69 02/15/17 01:27 Resp 16 02/15/17 01:25 BP 106/59 02/15/17 01:25 Pulse Ox 97 02/15/17 01:27 Intake & Output 02/14/17 02/15/17 02/15/17 18:59 06:59 18:59 Intake Total 2389 1550 Output Total 845 440 Balance 1544 1110 Weight 124.829 kg Intake: IV 2389 1550 0.9% NaCl with KCl 20 Meq 1350 /l 1,000 ml @ 150 mls/hr IV .[id number] [facility] Rx#: [id number] ceFAZolin 2 gm In Sodium 100 Chloride 0.9% 100 ml @ 100 mls/hr IVPB ONCE ONE Rx#:[id number] metroNIDAZOLE-NS PMX 500 100 mg In Saline 1 100ml.bag @ 100 mls/hr IVPB Q8HR [facility] Rx#:[id number] Output: Drainage 40 Left Lower 40 Urine 825 400 Uretheral ([place]) 400 Estimated Blood Loss 20 Other: Voiding Method Indwelling Catheter Indwelling Catheter - Exam GENERAL: Well developed and in no acute distress. Pleasant. HEENT: No sclera icterus. Extraocular movements grossly intact. Moist buccal mucosa. Head is atraumatic, normocephalic. Hears conversational speech. No nasal drainage. NECK: Neck brace intact. CHEST: Non-labored respirations and equal bilateral excursions. CARDIOVASCULAR: Regular rate and rhythm. Palpable 2+ radial pulses. ABDOMEN: Soft, minimal jay-incisional tenderness. No cellulitis. CJ serosanguineous. Minimal abdominal distention. MUSCULOSKELETAL: No clubbing, cyanosis or edema. NEUROLOGIC: No focal or lateralizing signs. PSYCH: Appropriate affect. Alert and oriented to person, place and time. - Labs CBC & Chem 7: 02/15/17 07:00 02/15/17 07:00 Labs: Abnormal Lab Results - Last 24 Hours (Table) 02/14/17 02/14/17 02/14/17 Range/Units 11:20 17:38 20:02 POC Glucose (mg/dL) 211 H 176 H 143 H (75-99) mg/dL 02/15/17 Range/Units 06:46 POC Glucose (mg/dL) 124 H (75-99) mg/dL Assessment and Plan (1) Status post gastric bypass for obesity Status: Acute (2) Diabetes type 2, controlled Status: Acute (3) Hypertension Status: Acute (4) Sleep apnea Status: Acute (5) BMI 40.0-44.9, adult Status: Acute (6) Morbid obesity Status: Acute Plan: 1. Continue CJ drain. 2. Bariatric clear liquid diet.
== END 2017-02-16 14:16 | disposition home or self-care (01) | DRG 621 ==
LOC: 2ORWHC 05:57 → 3SUR 10:42
PROVIDERS: ADMIT Surgery Plastic and Reconstructive Surgery; ATTEND Surgery Plastic and Reconstructive Surgery
PROC: 0DN64ZZ Release Stomach, Percutaneous Endoscopic Approach (ICD-10-PCS; 2017-02-14)
PROC: 0DB64ZZ Excision of Stomach, Percutaneous Endoscopic Approach (ICD-10-PCS; 2017-02-14)
PROC: 0DJ08ZZ Inspection of Upper Intestinal Tract, Via Natural or Artificial Opening Endoscopic (ICD-10-PCS; 2017-02-14)
PROC: 0D164ZA Bypass Stomach to Jejunum, Percutaneous Endoscopic Approach (ICD-10-PCS; principal; 2017-02-14 07:30)
DX: E66.01 Morbid (severe) obesity due to excess calories (principal); I10 Essential (primary) hypertension; Z68.41 Body mass index [BMI] 40.0-44.9, adult; E03.9 Hypothyroidism, unspecified; K21.9 Gastro-esophageal reflux disease without esophagitis; K66.0 Peritoneal adhesions (postprocedural) (postinfection); E11.9 Type 2 diabetes mellitus without complications; G47.33 Obstructive sleep apnea (adult) (pediatric); K44.9 Diaphragmatic hernia without obstruction or gangrene; M17.0 Bilateral primary osteoarthritis of knee; M19.072 Primary osteoarthritis, left ankle and foot; M19.071 Primary osteoarthritis, right ankle and foot; M47.9 Spondylosis, unspecified; M79.3 Panniculitis, unspecified; Z87.891 Personal history of nicotine dependence; Z79.84 Long term (current) use of oral hypoglycemic drugs; Z79.899 Other long term (current) drug therapy
CPT/HCPCS: 80051; 80053; 82310; 82565; 83036; 83735; 84100; 84439; 84443; 84520; 85025; 94640; 94660; 94760; 94762

== ENCOUNTER → 2017-02-18 | Outpatient (CLI) | payer BC ==
[2017-02-18 09:36] VITALS: BP 157/95; PULSE 76; TEMP 98.1; BMI 43.7
--- NOTE | 2017-03-21 18:01 | P.PN ---
Progress Note - Text DATE OF SERVICE: 02/18/2017 CHIEF COMPLAINT: Follow-up gastric bypass. HISTORY OF PRESENT ILLNESS: Claire Nix is a 56-year-old female who is status post Bobby-en-Y gastric bypass on 02/14/2017. She is now postop day #4. She reports doing quite well. She does complain of some mild numbness along the right posterior lateral leg. No reports of nausea and vomiting. No reports of fevers or chills. At her height of 5 feet 7-1/2 inches her ideal body weight is 158 pounds. Her highest personal weight was 318 pounds. She comes in weighing 282 pounds. She has maintained a 36 pound weight loss. Since her last visit within the last four weeks, she has lost another 10 pounds. Percent excess weight loss is 22%. Body mass index is reduced from 59.2 down to 43.7. She is still 124 pounds overweight. She has been discontinued off her blood pressure and diabetic medication. Her blood sugars otherwise have been 150. PHYSICAL EXAM: VITAL SIGNS: 98.1, 76, 157/95, 5 feet 7-1/2, 282 pounds, body mass index 43.7. ABDOMEN: Incision is clean, dry and intact. No signs of cellulitis or infection. Dressing and [place] drain were discontinued along the left upper quadrant. CJ is serosanguineous. MUSCULOSKELETAL: No clubbing, cyanosis, or tingling. GENERAL: Well-developed female in no acute distress. HEENT: No scleral icterus. Extraocular movements grossly intact. Moist buccal mucosa. NECK: Soft cervical spine collar. No adenopathy. CHEST: Nonlabored respirations with equal bilateral excursions. CARDIOVASCULAR: Regular rate and rhythm. NEURO: No focal or lateralizing signs. PSYCH: Appropriate affect. Alert and oriented to person, place, and time. ASSESSMENT: 1. Morbid obesity due to excess calories. 2. Body mass index reduced from 49.2 to 43.7. 3. Status post Bobby-en-Y gastric bypass. 4. Diabetes type 2, controlled. PLAN: 1. She is doing extremely well; however, her CJ drain will be discontinued one week given the revisional nature of her case. 2. She will continue on protein diet in the interim. 3. She reports mild numbness along the posterior thigh, which will continue to monitor. 4. Recommend follow-up in one week.
== END | disposition home or self-care (01) ==
LOC: BARWHC3 07:54
PROVIDERS: ATTEND Surgery Plastic and Reconstructive Surgery
DX: Z48.815 Encounter for surgical aftercare following surgery on the digestive system (principal); E66.01 Morbid (severe) obesity due to excess calories; E11.9 Type 2 diabetes mellitus without complications; R20.0 Anesthesia of skin; Z68.41 Body mass index [BMI] 40.0-44.9, adult; Z98.84 Bariatric surgery status
CPT/HCPCS: 99211

== ENCOUNTER → 2017-02-21 | Outpatient (CLI) | payer BC ==
[2017-02-21 08:59] VITALS: PULSE 80; RESP 15; TEMP 98.1
[2017-02-21 09:20] VITALS: BMI 42.3
--- NOTE | 2017-03-21 18:05 | P.PN ---
Progress Note - Text DATE OF SERVICE: 02/21/2017. CHIEF COMPLAINT: Follow-up gastric bypass. HISTORY OF PRESENT ILLNESS: Claire Nix is a 56-year-old female status post gastric bypass, 02/14/2017. She is now one week out. No reports of nausea, vomiting, fevers or chills. She is tolerating her protein shakes. Blood sugars are under well control under 150. She has been discontinued off of oral diabetic medications. At her height of 5 feet 7.5 inches, her ideal body weight is 158 pounds. Highest weight was 318 pounds. She comes in weighing 273 pounds. She has lost another 9 pounds in barely 5 days. Percent excess weight loss is now up to 20%. Body mass index is reduced from 49.2 down to 42.3. She is 150 pounds overweight. She has lost 46 pounds. PHYSICAL EXAM: VITAL SIGNS: 98.1, 80, 15, 126/76, 5 feet 7-1/2. Body mass is a 42.3, weight 273 pounds. ABDOMEN: Soft, nontender, nondistended. No signs of infection along her incision. CJ was discontinued which was serosanguineous. MUSCULOSKELETAL: No clubbing, cyanosis, or edema. GENERAL: Well-developed female in no acute distress. HEENT: No scleral icterus. Extraocular movements grossly intact. Moist buccal mucosa. NECK: Soft cervical spine collar. No adenopathy. CHEST: Nonlabored respirations with equal bilateral excursions. CARDIOVASCULAR: Regular rate and rhythm. NEURO: No focal or lateralizing signs. PSYCH: Appropriate affect. Alert and oriented to person, place, and time. ASSESSMENT: 1. Morbid obesity due to excess calories. 2. Body mass index reduced from 49.2 down to 42.3. 3. Status post Bobby-en-Y gastric bypass. 4. Diabetes type 2, [id number] controlled. PLAN: 1. She is doing extremely well and was asked to follow-up sooner otherwise one month follow-up from the time of her procedure. 2. Her goal protein intake of at least 75 grams daily. 3. Her blood sugars have been under excellent controll under 150, she will hold her Metformin at this time. 4. I have asked her to monitor her blood pressure whereby Lisinopril may put her at risk for kidney disease with hypotension which we will monitor closely.
== END | disposition home or self-care (01) ==
LOC: BARWHC3 08:38
PROVIDERS: ATTEND Surgery Plastic and Reconstructive Surgery
DX: Z48.815 Encounter for surgical aftercare following surgery on the digestive system (principal); E66.01 Morbid (severe) obesity due to excess calories; Z68.41 Body mass index [BMI] 40.0-44.9, adult; Z98.84 Bariatric surgery status; E11.9 Type 2 diabetes mellitus without complications
CPT/HCPCS: 97803; 99212

== ENCOUNTER → 2017-03-16 | Outpatient (CLI) | payer BC ==
[2017-03-16 15:29] VITALS: BP 112/74; PULSE 78; RESP 16; TEMP 97.7; BMI 39.7
[2017-03-16 17:26] LABS: INR 1.2 (<1.1); Partial Thromboplastin Time 24.8 sec (22.0-30.0); Prothrombin Time 11.7 sec (9.0-12.0)
[2017-03-16 17:33] LABS: ALT 44 U/L (9-52); AST 28 U/L (14-36); Alkaline Phosphatase 99 U/L (38-126); Anion Gap 10 mmol/L; Blood Urea Nitrogen 12 mg/dL (7-17); Carbon Dioxide 28 mmol/L (22-30); Chloride 105 mmol/L (98-107); Cholesterol 141 mg/dL (<200); Glucose 83 mg/dL (74-99); HDL Cholesterol 35 mg/dL (40-60); Iron 42 ug/dL (37-170); Magnesium 2.1 mg/dL (1.6-2.3); Non-African American GFR(MDRD) >60 (>60 ml/min/1.73 sqM); Phosphorous 4.1 mg/dL (2.5-4.5); Potassium 4.3 mmol/L (3.5-5.1); Sodium 143 mmol/L (137-145); Total Bilirubin 0.5 mg/dL (0.2-1.3); Total Protein 7.1 g/dL (6.3-8.2); Triglycerides 94 mg/dL (<150)
[2017-03-16 17:36] LABS: CH 30.7; CHCM 33.6; HCT 39.7 % (34.0-46.0); HDW 3.27; HGB 13.1 gm/dL (11.4-16.0); MCH 30.5 pg (25.0-35.0); MCHC 33.1 g/dL (31.0-37.0); MCV 92.1 fL (80.0-100.0); Mean Platelet Volume 7.6; RBC 4.31 m/uL (3.80-5.40); RDW 13.8 % (11.5-15.5); WBC 5.9 k/uL (3.8-10.6)
[2017-03-16 17:43] LABS: % Iron Saturation 14.7 % (20-50); Prealbumin 15 mg/dL (18-36); Total Iron Binding Capacity 286 ug/dL (265-497)
[2017-03-16 18:38] LABS: Vitamin B12 969 pg/mL (239-931)
[2017-03-16 19:16] LABS: Hemoglobin A1C 6.4 % (4.2-6.1)
[2017-03-19 10:50] LABS: Selenium 122 mcg/L (63-160)
--- NOTE | 2017-05-08 11:03 | PN ---
DATE OF SERVICE: 03/16/2017 CHIEF COMPLAINT: Follow up Bobby-en-Y gastric bypass. HISTORY OF PRESENT ILLNESS: Claire Nix is a 56-year-old female who is status post revision from Bariatric Bobby-en-Y gastric bypass exactly 30 days ago on 02/14/2017. Her highest weight for her 5 foot frame was 318 pounds. Today she comes in weighing 257 pounds. Her ideal body weight is 158 pounds. A lifetime weight loss is now 61 pounds. Since her last evaluation, she has lost 36 pounds in one month. Percent excess weight loss is up to 38%. Body mass index reduced from 49.2 down to 39.7. She is still 99 pounds overweight. She denies any troubles with eating foods. No reports of dysphagia. She no longer is rechecking her blood sugar as her diabetes is now resolved. She denies any dizziness. She denies any infection. She does report mild soreness. She is ready to go back to work. PHYSICAL EXAM: VITAL SIGNS: 97.7, 78, 16, 111, 112/74; 5 feet -11/15, 257 pounds. Body mass index 39.7. ABDOMEN: Soft, nondistended. Mild firmness noted along the incisions consistent with scar. GENERAL: Well-developed female in no acute distress. HEENT: No scleral icterus. Extraocular movements grossly intact. Moist buccal mucosa. NECK: Soft cervical spine collar. No adenopathy. CHEST: Nonlabored respirations with equal bilateral excursions. CARDIOVASCULAR: Regular rate and rhythm. MUSCULOSKELETAL: No clubbing, cyanosis, or edema. NEURO: No focal or lateralizing signs. PSYCH: Appropriate affect. Alert and oriented to person, place, and time. LABS: Hemoglobin normal at 13.1. Hemoglobin A1c improved from 7 down to 6.4. Average blood sugar of 137. Percent iron saturation low at 14.7. Prealbumin low at 15. HDL is low at 35. Vitamin A low at 26. Thiamine low at 37. Vitamin B12 elevated at 969. ASSESSMENT: 1. Morbid obesity due to excess calories. 2. Body mass index reduced from 49.2 down to 39.7. 3. Status post Bobby-en-Y gastric bypass. 4. Previous history of revision from an adjustable gastric band. 5. Diabetes type 2, improving. 6. Hypertension, resolved. 7. Obstructive sleep apnea, resolved. 8. Osteoarthritis of bilateral knees, improved. 9. Vitamin A deficiency. 10. Thiamine deficiency. PLAN: 1. She has obtained a bariatric metabolic panel. 2. Findings are consistent with vitamin A deficiency. 3. She also has thiamine deficiency. 4. Prealbumin was also low. 5. Recommend start of her multivitamin as she is now one month out. 6. Four pound lifting restriction was also described. 7. The patient may return to work with limitations as discussed. 8. Recommend follow-up at least 3 months postop or sooner should she have any further problems. LEX
--- NOTE | 2017-05-11 04:10 | P.PN ---
Progress Note - Text DATE OF SERVICE: 03/16/2017 CHIEF COMPLAINT: Follow up Bobby-en-Y gastric bypass. HISTORY OF PRESENT ILLNESS: Claire Nix is a 56-year-old female who is status post revision from Bariatric Bobby-en-Y gastric bypass exactly 30 days ago on 02/14/2017. Her highest weight for her 5 foot 7-11/15 frame was 318 pounds. Today she comes in weighing 257 pounds. Her ideal body weight is 158 pounds. A lifetime weight loss is now 61 pounds. Since her last evaluation, she has lost 36 pounds in one month. Percent excess weight loss is up to 38%. Body mass index reduced from 49.2 down to 39.7. She is still 99 pounds overweight. She denies any troubles with eating foods. No reports of dysphagia. She no longer is rechecking her blood sugar as her diabetes is now resolved. She denies any dizziness. She denies any infection. She does report mild soreness. She is ready to go back to work. PHYSICAL EXAM: VITAL SIGNS: 97.7, 78, 16, 111, 112/74; 5 feet 7-11/15, 257 pounds. Body mass index 39.7. ABDOMEN: Soft, nondistended. Mild firmness noted along the incisions consistent with scar. GENERAL: Well-developed female in no acute distress. HEENT: No scleral icterus. Extraocular movements grossly intact. Moist buccal mucosa. NECK: Soft cervical spine collar. No adenopathy. CHEST: Nonlabored respirations with equal bilateral excursions. CARDIOVASCULAR: Regular rate and rhythm. MUSCULOSKELETAL: No clubbing, cyanosis, or edema. NEURO: No focal or lateralizing signs. PSYCH: Appropriate affect. Alert and oriented to person, place, and time. LABS: Hemoglobin normal at 13.1. Hemoglobin A1c improved from 7 down to 6.4. Average blood sugar of 137. Percent iron saturation low at 14.7. Prealbumin low at 15. HDL is low at 35. Vitamin A low at 26. Thiamine low at 37. Vitamin B12 elevated at 969. ASSESSMENT: 1. Morbid obesity due to excess calories. 2. Body mass index reduced from 49.2 down to 39.7. 3. Status post Bobby-en-Y gastric bypass. 4. Previous history of revision from an adjustable gastric band. 5. Diabetes type 2, improving. 6. Hypertension, resolved. 7. Obstructive sleep apnea, resolved. 8. Osteoarthritis of bilateral knees, improved. 9. Vitamin A deficiency. 10. Thiamine deficiency. PLAN: 1. She has obtained a bariatric metabolic panel. 2. Findings are consistent with vitamin A deficiency. 3. She also has thiamine deficiency. 4. Prealbumin was also low. 5. Recommend start of her multivitamin as she is now one month out. 6. Four pound lifting restriction was also described. 7. The patient may return to work with limitations as discussed. 8. Recommend follow-up at least 3 months postop or sooner should she have any further problems.
== END | disposition home or self-care (01) ==
LOC: BARWHC3 14:30
PROVIDERS: ATTEND Surgery Plastic and Reconstructive Surgery
DX: Z48.815 Encounter for surgical aftercare following surgery on the digestive system (principal); Z71.3 Dietary counseling and surveillance; E66.01 Morbid (severe) obesity due to excess calories; E21.1 Secondary hyperparathyroidism, not elsewhere classified; E89.1 Postprocedural hypoinsulinemia; D50.8 Other iron deficiency anemias; E44.0 Moderate protein-calorie malnutrition; E55.9 Vitamin D deficiency, unspecified; K74.1 Hepatic sclerosis; N19 Unspecified kidney failure; K50.90 Crohn's disease, unspecified, without complications; Z98.84 Bariatric surgery status; Z88.2 Allergy status to sulfonamides
CPT/HCPCS: 80053; 80061; 82306; 82525; 82607; 82728; 82746; 83036; 83540; 83550; 83735; 83970; 84100; 84134; 84255; 84425; 84443; 84590; 84630; 85027; 85610; 85730; 97803; 99211

== ENCOUNTER → 2017-04-13 | Outpatient (CLI) | payer BC ==
[2017-04-13 17:24] VITALS: BP 140/89; PULSE 53; RESP 16; TEMP 97.9; BMI 37.9
--- NOTE | 2017-05-14 12:15 | P.PN ---
Progress Note - Text DATE OF SERVICE: 04/13/2017 CHIEF COMPLAINT: Follow up gastric bypass. HISTORY OF PRESENT ILLNESS: Claire Nix is a 56-year-old female status post Bobby-en-Y gastric bypass 02/14/2017. She is now almost two months out. She is actually revision from a band to a Bobby-en-Y gastric bypass. At her height of 5 foot 7-1/2 inches her ideal body weight is 158 pounds. Her highest weight was 318 pounds. Today she comes in weighing 245 pounds. Body mass index has been reduced from 49.2 down to 38. She is still 87 pounds overweight. She has lost actually 11 pounds since her last visit barely a month ago. She has achieved 45 % excess weight loss lifetime. She denies any abdominal pain. Overall her neck brace has been discontinued. She reports losing at least 50 pounds in the last 9 months. Again, her total weight loss lifetime is 73 pounds. She does report intermittent solid foods getting stuck. She is maintaining at least 75 grams of protein daily. PHYSICAL EXAM: VITAL SIGNS: 97.9, 53, 60, 140/89, 5 foot 7-1/2, 245 pounds, body mass index 38. ABDOMEN: Soft, nontender. No palpable incisional hernias. MUSCULOSKELETAL: No clubbing, cyanosis or edema. GENERAL: Well-developed female in no acute distress. HEENT: No scleral icterus. Extraocular movements grossly intact. Moist buccal mucosa. NECK: Soft cervical spine collar. No adenopathy. CHEST: Nonlabored respirations with equal bilateral excursions. CARDIOVASCULAR: Regular rate and rhythm. NEURO: No focal or lateralizing signs. PSYCH: Appropriate affect. Alert and oriented to person, place, and time. LABS: Reviewed with hemoglobin normal at 13.1. Hemoglobin A1c improved from 7 down to 6.4. Percent iron saturation low at 14.7. Prealbumin low at 15. Vitamin A was low at 26. Thiamine was low at 37. Vitamin B12 was elevated at 969. HDL was low at 35. ASSESSMENT: 1. Morbid obesity due to excess calories. 2. Body mass index reduced from 49.2 down to 38. 3. Dietary surveillance and counseling. 4. Obstructive sleep apnea. 5. Diabetes type 2, non-insulin dependent. 6. Osteoarthritis of the bilateral knees. 7. History of right knee effusion. 8. Osteoarthritis of the bilateral feet. 9. Panniculitis. 10. Family history of morbid obesity. 11. Family history of thyroid disorder. 12. Gastroesophageal reflux disease, resolved. 13. Status post Bobby-en-Y gastric bypass. 14. History of hypothyroidism. 15. Osteoarthritis of lower back. 16. History of complications from adjustable gastric band. 17. Obstructive sleep apnea, improved. 18. Vitamin A deficiency. 19. Thiamine deficiency. 20. Dysphagia. PLAN: 1. I have recommended continued goal protein intake of over 70 grams daily. 2. Should she continue to have additional symptoms with dysphagia that she will need an upper endoscopy for further evaluation and management. 3. She has done extremely well overall with her weight loss. 4. Recommend thiamine supplement at least 100 mcg daily. 5. Also recommend vitamin A supplements at least 8000 units daily. 6. Will also benefit from exercise and will also improve her HDL. 7. Recommended follow up 3 months postop, otherwise May 2017.
== END | disposition home or self-care (01) ==
LOC: BARWHC3 15:53
PROVIDERS: ATTEND Surgery Plastic and Reconstructive Surgery
DX: Z09 Encounter for follow-up examination after completed treatment for conditions other than malignant neoplasm (principal); E66.01 Morbid (severe) obesity due to excess calories; G47.33 Obstructive sleep apnea (adult) (pediatric); E11.9 Type 2 diabetes mellitus without complications; M17.0 Bilateral primary osteoarthritis of knee; M19.071 Primary osteoarthritis, right ankle and foot; M19.072 Primary osteoarthritis, left ankle and foot; M79.3 Panniculitis, unspecified; E50.9 Vitamin A deficiency, unspecified; M47.816 Spondylosis without myelopathy or radiculopathy, lumbar region; E51.9 Thiamine deficiency, unspecified; Z68.38 Body mass index [BMI] 38.0-38.9, adult; Z98.84 Bariatric surgery status; Z86.39 Personal history of other endocrine, nutritional and metabolic disease
CPT/HCPCS: 99211

== ENCOUNTER → 2017-05-25 | Outpatient (CLI) | payer BC ==
[2017-05-25 16:15] VITALS: BP 130/82; PULSE 69; TEMP 98; BMI 34.0
--- NOTE | 2017-06-25 12:47 | P.PN ---
Progress Note - Text DATE OF SERVICE: 05/25/2017 CHIEF COMPLAINT: Follow up gastric bypass. HISTORY OF PRESENT ILLNESS: Claire Nix is a 56-year-old female status post Bobby-en-Y gastric bypass 02/14/2017. She is over 3 months out. She is a revision from a band to a Bobby-en-Y gastric bypass. At her height of 5 foot 7-1/2 inches her ideal body weight is 158 pounds. Her highest weight was 318 pounds. Today she comes in weighing 220 pounds. In 5 weeks, she lost another 26 pounds. Body mass index has been reduced from 49.2 down to 34. She has achieved 61% excess weight loss lifetime. Her total weight loss lifetime is 98 pounds. She has developed panniculitis and is using nystatin powder. She is going to the gym 3-4 times weekly. She reports increased trouble with swallowing foods. She denies any gastroesophageal reflux disease. Now she presents for further evaluation and management. She is off her medications for insulin as well as blood pressure. PAST MEDICAL HISTORY: 1. Morbid obesity. 2. Diabetes type 2, noninsulin dependent. 3. Panniculitis. 4. Obstructive sleep apnea. 5. Osteoarthritis of the bilateral knees. 6. Osteoarthritis of the lower back. 7. Hypertension. 8. Gastroesophageal reflux disease. 9. Hiatal hernia. PAST SURGICAL HISTORY: 1. Adjustable gastric band with multiple revisions x3. 2. . 3. Tonsillectomy. 4. Colonoscopy one year ago. 5. Cervical fusion spinal surgery. 6. Gastric bypass. MEDICATIONS: 1. Multivitamin. ALLERGIES: None listed. SOCIAL HISTORY: Former tobacco use. FAMILY HISTORY: Pertinent for morbid obesity including diabetes and hypertensive heart disease. REVIEW OF SYSTEMS: CONSTITUTIONAL: At her height of 5 foot 7-1/2 inches her ideal body weight is 158 pounds. Her highest weight was 318 pounds. Body mass index has been reduced from 49.2 down to 34. She has achieved 61% excess weight loss lifetime. Her total weight loss lifetime is 98 pounds. Today she comes in weighing 220 pounds. MUSCULOSKELETAL: History of recent cervical fusion spinal surgery, now in a soft collar. She has been cleared by her neurosurgeon. ENDOCRINE: History of insulin-dependent diabetes type 2, now resolved. No reports of thyroid disorder. GASTROINTESTINAL: Has gastroesophageal reflux disease including diaphragmatic hiatal hernia now resolved. No reports of dumping syndrome. Has trouble with swallowing. HEENT: No active troubles with vision or hearing. Reports of dysphagia to solid foods. RESPIRATORY: Has obstructive sleep apnea, now resolved. No recent pneumonia. Former tobacco user. CARDIOVASCULAR: No recent chest pain or heart attack or palpitations. NEURO: No reports of stroke or seizure disorders. PSYCH: No reports of active depression or suicidal ideation. No reports of anxiety. HEMATOLOGIC: No reports of easy bruising or bleeding. SKIN: Has panniculitis. No cancer of the skin. PHYSICAL EXAM: VITAL SIGNS: 5 feet 7-1/2 inches, 220 pounds. Body mass index of 34.0. Vital Signs Temp 98.0 F 05/25/17 16:14 Pulse 69 05/25/17 16:14 Resp BP 130/82 05/25/17 16:14 Pulse Ox ABDOMEN: Soft, nontender, nondistended. GENERAL: Well-developed female in no acute distress. HEENT: No scleral icterus. Extraocular movements grossly intact. Moist buccal mucosa. NECK: Soft cervical spine collar. No adenopathy. CHEST: Nonlabored respirations with equal bilateral excursions. CARDIOVASCULAR: Regular rate and rhythm. ABDOMEN: Obese, soft, nontender, nondistended. Moderate-sized pannus. MUSCULOSKELETAL: No clubbing, cyanosis, or edema. NEURO: No focal or lateralizing signs. PSYCH: Appropriate affect. Alert and oriented to person, place, and time. ASSESSMENT: 1. Morbid obesity due to excess calories. 2. Body mass index reduced from 49.2 down to 34.0. 3. Dietary surveillance and counseling. 4. Obstructive sleep apnea, resolved. 5. Diabetes type 2, non-insulin dependent, resolved. 6. Osteoarthritis of the bilateral knees, improved. 7. History of right knee effusion, resolved. 8. Osteoarthritis of the bilateral feet, improved. 9. Panniculitis. 10. Family history of morbid obesity. 11. Family history of thyroid disorder. 12. Gastroesophageal reflux disease, resolved. 13. Intolerance to omeprazole. 14. History of hypothyroidism. 15. Osteoarthritis of lower back. 16. History of complications from adjustable gastric band. 17. Dysphagia to solid foods. PLAN: 1. Recommend bariatric metabolic panel as she is 3 months out. 2. Recommend upper endoscopy with balloon dilatation for dysphagia to solid foods. 3. Continue multivitamins.
== END | disposition home or self-care (01) ==
LOC: BARWHC3 16:05
PROVIDERS: ATTEND Surgery Plastic and Reconstructive Surgery
DX: Z48.815 Encounter for surgical aftercare following surgery on the digestive system (principal); M17.0 Bilateral primary osteoarthritis of knee; M19.071 Primary osteoarthritis, right ankle and foot; M19.072 Primary osteoarthritis, left ankle and foot; M79.3 Panniculitis, unspecified; M47.816 Spondylosis without myelopathy or radiculopathy, lumbar region; E21.1 Secondary hyperparathyroidism, not elsewhere classified; E89.1 Postprocedural hypoinsulinemia; D50.9 Iron deficiency anemia, unspecified; K90.9 Intestinal malabsorption, unspecified; E55.9 Vitamin D deficiency, unspecified; T56.894A Toxic effect of other metals, undetermined, initial encounter; K76.9 Liver disease, unspecified; E66.01 Morbid (severe) obesity due to excess calories; Z68.34 Body mass index [BMI] 34.0-34.9, adult; Z86.39 Personal history of other endocrine, nutritional and metabolic disease; Z71.3 Dietary counseling and surveillance; Z79.899 Other long term (current) drug therapy; Z98.84 Bariatric surgery status
CPT/HCPCS: 97803; 99211

== ENCOUNTER → 2017-06-13 | Outpatient (CLI) | payer BC ==
[2017-06-13 10:19] LABS: CH 30.7; CHCM 32.7; HCT 44.4 % (34.0-46.0); HDW 2.55; HGB 14.1 gm/dL (11.4-16.0); MCH 30.1 pg (25.0-35.0); MCHC 31.9 g/dL (31.0-37.0); MCV 94.4 fL (80.0-100.0); Mean Platelet Volume 8.3; RDW 14.7 % (11.5-15.5); WBC 5.9 k/uL (3.8-10.6)
[2017-06-13 10:31] LABS: INR 1.1 (<1.2); Partial Thromboplastin Time 24.4 sec (22.0-30.0); Prothrombin Time 11.4 sec (9.0-12.0)
[2017-06-13 11:23] LABS: ALT 46 U/L (9-52); AST 25 U/L (14-36); Alkaline Phosphatase 102 U/L (38-126); Anion Gap 13 mmol/L; Blood Urea Nitrogen 16 mg/dL (7-17); Calcium 9.8 mg/dL (8.4-10.2); Carbon Dioxide 27 mmol/L (22-30); Chloride 106 mmol/L (98-107); Cholesterol 143 mg/dL (<200); Glucose 86 mg/dL (74-99); HDL Cholesterol 41 mg/dL (40-60); Iron 74 ug/dL (37-170); Non-African American GFR(MDRD) >60 (>60 ml/min/1.73 sqM); Phosphorous 3.6 mg/dL (2.5-4.5); Sodium 146 mmol/L (137-145); Total Bilirubin 0.5 mg/dL (0.2-1.3); Total Protein 6.9 g/dL (6.3-8.2); Triglycerides 88 mg/dL (<150)
[2017-06-13 11:32] LABS: Prealbumin 18 mg/dL (18-36)
[2017-06-13 11:42] LABS: % Iron Saturation 23.6 % (20-50); Total Iron Binding Capacity 313 ug/dL (265-497)
[2017-06-13 12:38] LABS: Vitamin B12 523 pg/mL (239-931)
[2017-06-13 13:24] LABS: Hemoglobin A1C 5.8 % (4.2-6.1)
== END | disposition home or self-care (01) ==
LOC: LABWHC1 09:46
PROVIDERS: ATTEND Surgery Plastic and Reconstructive Surgery
DX: E21.1 Secondary hyperparathyroidism, not elsewhere classified (principal); E89.1 Postprocedural hypoinsulinemia; E66.01 Morbid (severe) obesity due to excess calories; D50.9 Iron deficiency anemia, unspecified; K90.9 Intestinal malabsorption, unspecified; E44.1 Mild protein-calorie malnutrition; E55.9 Vitamin D deficiency, unspecified; K74.1 Hepatic sclerosis; T56.894A Toxic effect of other metals, undetermined, initial encounter
CPT/HCPCS: 36415; 80053; 80061; 82306; 82525; 82607; 82728; 82746; 83036; 83540; 83550; 83735; 83970; 84100; 84134; 84255; 84425; 84443; 84590; 84630; 85027; 85610; 85730

== ENCOUNTER 2017-06-15 07:29 | Day surgery (SDC) | payer BC ==
[2017-06-10 13:04] VITALS: BMI 34.2
[~2017-06-15 07:29] MED LIST changes: -DEXAMETHASONE SOD PHOSPHATE 10 MG/ML 1 ML VIAL IV ONE; +LACTATED RINGERS 1,000 ML IV SCH; -MIDAZOLAM 2 MG/2 ML VIAL IV PRN; -SCOPOLAMINE 1.5MG/72HR PATCH TRANSDERM ONE
[2017-06-15 07:49] VITALS: TEMP 97.8
[2017-06-15] MEDS ORDERED: LACTATED RINGERS 1,000 ML IV ONE (07:55)
[2017-06-15 08:00] LABS: Glucose,Whole Blood 92 mg/dL (75-99)
[2017-06-15] MEDS ORDERED: PROPOFOL 10 MG/ML 20 ML VIAL IV ONE (08:07)
[2017-06-15] MEDS ORDERED: LIDOCAINE 1% INJ 10MG/ML (20 ML MDV) ONE (08:07)
--- NOTE | 2017-06-15 08:36 | P.GSHP ---
History of Present Illness H&P Date: 06/15/17 CHIEF COMPLAINT: GERD HISTORY OF PRESENT ILLNESS: The patient is a 56-year-old female who presents reports gastroesophageal reflux disease. Upper endoscopy was offered for further evaluation and management. PAST MEDICAL HISTORY: Please see list. PAST SURGICAL HISTORY: Please see list. MEDICATIONS: Please see list. ALLERGIES: Please see list. SOCIAL HISTORY: No illicit drug use FAMILY HISTORY: No reports of Crohn disease or ulcerative colitis. REVIEW OF ORGAN SYSTEMS: CONSTITUTIONAL: No reports of fevers or chills. GI: Denies any blood in stools or constipation. PHYSICAL EXAM: VITAL SIGNS: Stable GENERAL: Well-developed and pleasant in no acute distress. HEENT: No scleral icterus. Extraocular movements grossly intact. Moist buccal mucosa. NECK: Supple without lymphadenopathy. CHEST: Unlabored respirations. Equal bilateral excursions. CARDIOVASCULAR: Regular rate and rhythm. Distal 2+ pulses. ABDOMEN: Soft, nondistended. MUSCULOSKELETAL: No clubbing, cyanosis, or edema. ASSESSMENT: 1. Gastroesophageal reflux disease PLAN: 1. Recommend proceeding with an upper endoscopy Past Medical History Past Medical History: Diabetes Mellitus, GERD/Reflux, Hypertension, Osteoarthritis (OA), Sleep Apnea/CPAP/BIPAP Additional Past Medical History / Comment(s): "borderline thyroid", no longer needs BP med, has lost 75#, no longer using CPAP History of Any Multi-Drug Resistant Organisms: None Reported Past Surgical History: Bariatric Surgery, Section, Orthopedic Surgery, Tonsillectomy Additional Past Surgical History / Comment(s): lap band placed/3 follow up surgeries then later removed, anterior cervical fusion 12/22/16, gastric sleeve 02/14/17 Past Anesthesia/Blood Transfusion Reactions: No Reported Reaction Smoking Status: Former smoker - Past Family History Father Family Medical History: No Reported History Mother Family Medical History: Pulmonary Embolus Medications and Allergies Home Medications Medication Instructions Recorded Confirmed Type Nystatin 100,000 Unit/gm Powd 1 applic TOPICAL BID PRN 02/09/17 06/10/17 History [Mycostatin Powder] Calcium Citrate 250 mg PO DAILY 05/25/17 06/10/17 History Multivitamins, Thera [Multivitamin 1 tab PO DAILY 05/25/17 06/10/17 History (formulary)] Thiamine [Vitamin B-1] 100 mg PO DAILY 05/25/17 06/10/17 History Vitamin A 1 tab PO DAILY 05/25/17 06/10/17 History Allergies Allergy/AdvReac Type Severity Reaction Status Date / Time Sulfa (Sulfonamide Allergy skin turns Verified 06/10/17 12:04 Antibiotics) red,lethargic environmental allergies Allergy Unknown Uncoded 06/10/17 12:04 Surgical - Exam Vital Signs Temp Pulse Resp BP Pulse Ox 97.8 F 58 L 18 139/79 97 06/15/17 07:48 06/15/17 07:48 06/15/17 07:48 06/15/17 07:48 06/15/17 07:48
--- NOTE | 2017-06-15 08:47 | P.PCN ---
Date of Procedure: 06/15/17 Preoperative Diagnosis: Postoperative Diagnosis: Procedure(s) Performed: Implants: Indications for Procedure: Operative Findings: Description of Procedure: PREOPERATIVE DIAGNOSIS: Dysphagia. Nausea with vomiting. Morbid obesity. Diabetes type 2. POSTOPERATIVE DIAGNOSIS: Dysphagia. Nausea with vomiting. Morbid obesity. Diabetes type 2. Stomach stenosis9 Gastrojejunal stricture without chronic ulcer without perforation OPERATION: Esophagogastrojejunoscopy with balloon dilatation from 9 to 20 mm. SURGEON: Roya Senior MD ANESTHESIA: MAC. INDICATIONS: The patient is a 56-year-old female who presents with a history of dysphagia including new-onset nausea and vomiting. Benefits and risks of the procedure were described. Informed consent was obtained. DESCRIPTION: The patient was brought into the endoscopy suite and laid in the left lateral decubitus position. After a timeout was confirmed, the procedure was initiated. An Olympus gastroscope was passed along the posterior oropharynx down to the distal esophagus where the squamocolumnar junction was unremarkable. The gastric pouch was entered. A gastrojejunal stricture of 9 mm was found as the adult gastroscope was 9.5 mm in size. A curated.by balloon dilator was placed through the scope. Final insufflation up to 20 mm was performed with a total of 2 minutes. The scope was advanced up to 60 cm from the incisors into the Bobby limb. The mucosa of the gastrojejunal anastomosis was intact. No chronic gastrojejunal marginal ulcer was encountered. No full-thickness injury was encountered. The GI tract was desufflated. The patient tolerated the procedure well. FINDINGS: Stricture of approximately 9 mm encountered. No chronic gastrojejunal ulceration encountered. Successful balloon dilatation to 20 mm. RECOMMENDATIONS: Omeprazole treatment for 4 weeks. Plan - Discharge Summary New Discharge Prescriptions: No Action Nystatin 100,000 Unit/gm Powd [Mycostatin Powder] 1 applic TOPICAL BID PRN PRN Reason: Rash Multivitamins, Thera [Multivitamin (formulary)] 1 tab PO DAILY Calcium Citrate 250 mg PO DAILY Vitamin A 1 tab PO DAILY Thiamine [Vitamin B-1] 100 mg PO DAILY Discharge Medication List Nystatin 100,000 Unit/gm Powd [Mycostatin Powder] 1 applic TOPICAL BID PRN 02/09 [History] Calcium Citrate 250 mg PO DAILY 05/25/17 [History] Multivitamins, Thera [Multivitamin (formulary)] 1 tab PO DAILY 05/25/17 [History ] Thiamine [Vitamin B-1] 100 mg PO DAILY 05/25/17 [History] Vitamin A 1 tab PO DAILY 05/25/17 [History]
[2017-06-15 08:58] VITALS: RESP 16
[2017-06-15 09:16] VITALS: BP 127/80; PULSE 55
== END 2017-06-15 09:30 | disposition home or self-care (01) ==
LOC: ORWHC2ENDO 07:29
PROVIDERS: ATTEND Surgery Plastic and Reconstructive Surgery
DX: K95.89 Other complications of other bariatric procedure (principal); R13.10 Dysphagia, unspecified; E66.01 Morbid (severe) obesity due to excess calories; R11.2 Nausea with vomiting, unspecified; G47.33 Obstructive sleep apnea (adult) (pediatric); I10 Essential (primary) hypertension; E11.9 Type 2 diabetes mellitus without complications; M19.90 Unspecified osteoarthritis, unspecified site; K21.9 Gastro-esophageal reflux disease without esophagitis; Z87.891 Personal history of nicotine dependence; Z88.2 Allergy status to sulfonamides; Z98.84 Bariatric surgery status; Y73.3 Surgical instruments, materials and gastroenterology and urology devices (including sutures) associated with adverse incidents; Z99.89 Dependence on other enabling machines and devices
CPT/HCPCS: 43249; J2001; J2704; C1726

== ENCOUNTER 2017-06-15 13:35 | Inpatient (IN) | payer BC ==
[2017-06-15 14:45] VITALS: BMI 34.2
[2017-06-15] MEDS ORDERED: NALOXONE 0.4 MG/ML 1 ML VIAL IV PRN (14:47)
[2017-06-15] MEDS ORDERED: ONDANSETRON 4 MG/2 ML VIAL IVP PRN (14:47)
[2017-06-15 16:05] LABS: Basophils % (A) 0 %; CH 30.7; CHCM 31.8; Eosinophils # (A) 0.1 k/uL (0-0.7); Eosinophils % (A) 1 %; HCT 46.2 % (34.0-46.0); HDW 2.49; HGB 14.5 gm/dL (11.4-16.0); Luc # (Auto) 0.14; Luc % (Auto) 1; Lymphocytes # (A) 1.2 k/uL (1.0-4.8); Lymphocytes % (A) 10 %; MCH 30.4 pg (25.0-35.0); MCHC 31.3 g/dL (31.0-37.0); Mean Platelet Volume 8.7; Monocytes # (A) 0.4 k/uL (0-1.0); Monocytes % (A) 4 %; Neutrophils # (A) 9.9 k/uL (1.3-7.7); Neutrophils % (A) 85 %; RBC 4.77 m/uL (3.80-5.40); RDW 14.8 % (11.5-15.5); WBC 11.7 k/uL (3.8-10.6); WBC (Perox) 11.54
[2017-06-15 16:10] LABS: ALT 48 U/L (9-52); AST 26 U/L (14-36); Alkaline Phosphatase 100 U/L (38-126); Anion Gap 11 mmol/L; Blood Urea Nitrogen 14 mg/dL (7-17); Calcium 9.7 mg/dL (8.4-10.2); Carbon Dioxide 23 mmol/L (22-30); Chloride 107 mmol/L (98-107); Glucose 90 mg/dL (74-99); Non-African American GFR(MDRD) >60 (>60 ml/min/1.73 sqM); Potassium 3.8 mmol/L (3.5-5.1); Sodium 141 mmol/L (137-145); Total Bilirubin 0.6 mg/dL (0.2-1.3)
[2017-06-15] MEDS: HYDROmorphone 1 MG/ML 1 ML SYRINGE IVP PRN ×2 (16:21→23:24)
[2017-06-15] MEDS: AMPICILLIN-SULBACTAM 3 GM in SODIUM CHLORIDE 0.9% 100 ML IVPB SCH ×2 (18:16→23:39)
[2017-06-15] MEDS ORDERED: SODIUM CHLORIDE 0.9% 2,000 ML IV STA (18:37)
[2017-06-15] MEDS ORDERED: RX INFO: IV CONTRAST WAS GIVEN 1 EACH MISC MISCELLANE PRN (18:37)
[2017-06-15] MEDS ORDERED: IOHEXOL 350 MG/ML 25 ML BOTTLE (ORAL USE) PO PRN (18:37)
--- NOTE | 2017-06-15 20:01 | CT ---
EXAMINATION TYPE: CT abdomen pelvis w con DATE OF EXAM: 06/15/2017 COMPARISON: NONE HISTORY: VOMITING AFTER STRITCHER FIX SX TODAY. CT DLP: 1774 mGycm Automated exposure control for dose reduction was used. TECHNIQUE: Helical acquisition of images was performed from the lung bases through the pelvis. CONTRAST: Performed with Oral Contrast and with IV Contrast, patient injected with 100 mL of Omnipaque 300. FINDINGS: There is some patchy interstitial infiltrate and atelectasis at the lung bases. There is no pleural e ffusion. There is mild pneumoperitoneum. Bile ducts are not dilated. There is no evidence of pancreat ic mass. Spleen appears normal. Gallbladder is large and measures 4.5 cm in diameter. There are numerous surgical clips around the stomach. There is no evidence of a bowel obstruction. There is some retained fecal material in the right colon . Appendix appears normal. There is no adrenal mass. Kidneys show satisfactory contrast opacification. There is no hydronephrosi s. There is no retroperitoneal adenopathy. There is no ascites. Bladder distends smoothly. There is n o sign of a pelvic mass. The bony structures are intact. IMPRESSION: SMALL PNEUMOPERITONEUM RELATED TO RECENT SURGERY. PREVIOUS GASTRIC SURGERY. PATCHY INFILTRATE AND ATE LECTASIS AT THE LUNG BASES.
[2017-06-15] MEDS: SODIUM CHLORIDE 0.9% 1,000 ML IV SCH ×2 (20:51→21:29)
[2017-06-15] MEDS ORDERED: SODIUM CHLORIDE 0.9% 2,000 ML IV ONE (21:15)
--- NOTE | 2017-06-15 22:03 | P.PN ---
Progress Note - Text Patient seen and re-evaluated this evening. She reports initially leaving the hospital without any abdominal discomfort and had been able to drink cold juice without issues. When she went home, she drank a protein shake and then had acute onset abdominal pain, hence her admission. She reports that her pain is better after pain meds. She denies any epigastric abdominal pain. She reports left upper quadrant pain. She has been NPO. Labs reviewed consistent with mild leukocytosis. With her left upper quadrant abdominal pain, I have recommended a CT of the abdomen and pelvis to evaluate for free air and/or cause of her new left upper quadrant pain. She reports moderate to severe dehydration. Recommend IV fluid hydration including NPO status. Conservative management with possible repeat films for the morning.
[2017-06-15] MEDS: 0.9% NACL WITH KCL 20 MEQ/L 1,000 ML IV SCH (22:33)
[2017-06-16] MEDS: HYDROmorphone 1 MG/ML 1 ML SYRINGE IVP PRN ×5 (03:56→23:30)
[2017-06-16] MEDS: 0.9% NACL WITH KCL 20 MEQ/L 1,000 ML IV SCH ×3 (05:47→21:24)
[2017-06-16] MEDS: AMPICILLIN-SULBACTAM 3 GM in SODIUM CHLORIDE 0.9% 100 ML IVPB SCH ×3 (05:48→23:27)
[2017-06-16 06:53] LABS: Basophils % (A) 0 %; CH 30.7; CHCM 32.3; Eosinophils # (A) 0.1 k/uL (0-0.7); Eosinophils % (A) 1 %; HDW 2.49; HGB 12.3 gm/dL (11.4-16.0); Luc % (Auto) 1; Lymphocytes # (A) 1.8 k/uL (1.0-4.8); Lymphocytes % (A) 23 %; MCH 30.9 pg (25.0-35.0); MCHC 32.3 g/dL (31.0-37.0); MCV 95.5 fL (80.0-100.0); Mean Platelet Volume 8.5; Monocytes # (A) 0.3 k/uL (0-1.0); Monocytes % (A) 4 %; Neutrophils # (A) 5.6 k/uL (1.3-7.7); Neutrophils % (A) 71 %; RBC 3.98 m/uL (3.80-5.40); RDW 14.9 % (11.5-15.5); WBC 7.9 k/uL (3.8-10.6)
[2017-06-16 07:01] LABS: Anion Gap 8 mmol/L; Blood Urea Nitrogen 10 mg/dL (7-17); Calcium 8.6 mg/dL (8.4-10.2); Carbon Dioxide 25 mmol/L (22-30); Chloride 112 mmol/L (98-107); Magnesium 1.9 mg/dL (1.6-2.3); Non-African American GFR(MDRD) >60 (>60 ml/min/1.73 sqM); Phosphorous 3.8 mg/dL (2.5-4.5); Potassium 3.9 mmol/L (3.5-5.1); Sodium 145 mmol/L (137-145)
[2017-06-16] MEDS ORDERED: ceFAZolin 2 GM in SODIUM CHLORIDE 0.9% 100 ML IVPB ONE (07:53)
[2017-06-16] MEDS ORDERED: ACETAMINOPHEN IV (For NPO) 1,000 MG in EMPTY BAG 1 BAG IVPB ONE (07:53)
--- NOTE | 2017-06-16 07:53 | P.PN ---
Progress Note - Text Patient seen and evaluated. She still complains of moderate abdominal pain despite conservative measures. We'll proceed with diagnostic laparoscopy and repair of gastric perforation and placement of drain.
[2017-06-16] MEDS: ENOXAPARIN 40 MG/0.4 ML SYRINGE SQ SCH ×2 (08:13→17:21)
[2017-06-16] MEDS ORDERED: ENOXAPARIN 40 MG/0.4 ML SYRINGE SQ SCH (09:00)
[2017-06-16] MEDS ORDERED: IV FLUID CONTINUATION 1,000 ML IV ONE (16:07)
[2017-06-16] MEDS ORDERED: LACTATED RINGERS 1,000 ML IV ONE (16:21)
[2017-06-16] MEDS ORDERED: ONDANSETRON 4 MG/2 ML VIAL IVP ONE (16:45)
[2017-06-16] MEDS ORDERED: GLYCOPYRROLATE 0.2 MG/ML 2 ML VIAL ONE (18:21)
[2017-06-16] MEDS ORDERED: NEOSTIGMINE 1 MG/ML 10 ML VIAL ONE (18:21)
[2017-06-16] MEDS ORDERED: ROCURONIUM BROMIDE 10 MG/ML 10 ML VIAL IV ONE (18:21)
[2017-06-16] MEDS ORDERED: PROPOFOL 10 MG/ML 20 ML VIAL IV ONE (18:21)
[2017-06-16] MEDS ORDERED: SUCCINYLCHOLINE CHLORIDE 100 MG/5 ML SYR IV ONE (18:21)
[2017-06-16] MEDS ORDERED: LIDOCAINE 1% INJ 10MG/ML (20 ML MDV) ONE (18:21)
[2017-06-16] MEDS ORDERED: MIDAZOLAM 2 MG/2 ML VIAL ONE (18:21)
[2017-06-16] MEDS ORDERED: fentaNYL (PF) 50 MCG/ML 2 ML AMP ONE (18:21)
[2017-06-16] MEDS ORDERED: BUPIVACAINE (PF) 0.5% 30 ML VIAL SQ ONE (19:17)
--- NOTE | 2017-06-16 19:52 | P.PCN ---
Date of Procedure: 06/16/17 Preoperative Diagnosis: Peritonitis, pneumoperitoneum Postoperative Diagnosis: Same, intra-abdominal peritoneal adhesions Procedure(s) Performed: Laparoscopic lysis of adhesions over 3 minutes, peritoneal lavage 3 L normal saline, omental patch over her gastrojejunostomy anastomosis, placement of round of #19 CJ drain anterior to Carlos Alberto patch; intraoperative esophagogastrojejunoscopy Implants: Anesthesia: GETA, local Surgeon: Roya Senior Estimated Blood Loss (ml): 5 Pathology: other (Peritoneal fluid aerobic and anaerobic cultures) Condition: stable Disposition: floor Indications for Procedure: Operative Findings: 1. Hyperemia along the anterior abdominal wall left upper quadrant and epigastrium. 2. No active leak or persistent perforation identified along gastrojejunostomy. 3. Sealed previous perforation along gastrojejunostomy 4. Negative leak test. 5. Gastrojejunal ulceration at perforation site. Description of Procedure:
[2017-06-16 23:48] VITALS: RESP 16
[2017-06-17] MEDS: HYDROmorphone 1 MG/ML 1 ML SYRINGE IVP PRN (02:26)
[2017-06-17] MEDS: 0.9% NACL WITH KCL 20 MEQ/L 1,000 ML IV SCH ×2 (05:23→07:32)
[2017-06-17] MEDS: AMPICILLIN-SULBACTAM 3 GM in SODIUM CHLORIDE 0.9% 100 ML IVPB SCH ×3 (07:31→11:08)
[2017-06-17] MEDS: ENOXAPARIN 40 MG/0.4 ML SYRINGE SQ SCH (07:33)
[2017-06-17 08:14] LABS: Basophils % (A) 0 %; CH 30.8; CHCM 32.1; Eosinophils # (A) 0.1 k/uL (0-0.7); Eosinophils % (A) 1 %; HCT 40.8 % (34.0-46.0); HDW 2.53; HGB 12.9 gm/dL (11.4-16.0); Luc # (Auto) 0.09; Luc % (Auto) 1; Lymphocytes # (A) 1.1 k/uL (1.0-4.8); Lymphocytes % (A) 12 %; MCH 30.5 pg (25.0-35.0); MCHC 31.6 g/dL (31.0-37.0); MCV 96.5 fL (80.0-100.0); Mean Platelet Volume 8.7; Monocytes # (A) 0.4 k/uL (0-1.0); Monocytes % (A) 4 %; Neutrophils # (A) 7.6 k/uL (1.3-7.7); Neutrophils % (A) 82 %; RBC 4.23 m/uL (3.80-5.40); WBC 9.3 k/uL (3.8-10.6); WBC (Perox) 9.83
[2017-06-17 08:20] LABS: Anion Gap 11 mmol/L; Blood Urea Nitrogen 6 mg/dL (7-17); Calcium 8.6 mg/dL (8.4-10.2); Carbon Dioxide 23 mmol/L (22-30); Chloride 109 mmol/L (98-107); Glucose 77 mg/dL (74-99); Non-African American GFR(MDRD) >60 (>60 ml/min/1.73 sqM); Potassium 3.8 mmol/L (3.5-5.1); Sodium 143 mmol/L (137-145)
--- NOTE | 2017-06-17 09:07 | FL ---
EXAMINATION TYPE: FL UGI w esophagus DATE OF EXAM: 06/17/2017 COMPARISON: CT abdomen pelvis dated 06/15/2017 HISTORY: Recent bowel rupture at the gastroesophageal junction in a patient with history of gastric b ypass surgery. TECHNIQUE: A single contrast UGI study is performed with iodinated contrast rather than barium. FINDINGS: Contrast flows smoothly and readily through the gastroesophageal junction into the gastric pouch. The re is no evidence of stricture. A contained outpouching is seen just near the gastroesophageal juncti on that corresponds to a diverticulum on the CT of 06/15/2017. This collection of contrast remained sta ble throughout the examination with no evidence of extravasation. The duodenal bulb, sweep, and proximal small bowel loops are unremarkable. IMPRESSION: 1. No evidence of extravasation of contrast. 2. Focal outpouching near the gastroesophageal junction corresponding to a diverticulum seen on the C T of 06/15/2017. 3. No evidence of postoperative stricture from surrounding inflammatory change.
[2017-06-17 09:15] VITALS: PULSE 78
[2017-06-17] MEDS ORDERED: ACETAMINOPHEN TAB 325 MG TAB PO PRN (10:51)
--- NOTE | 2017-06-17 15:14 | P.PN ---
Progress Note - Text Patient seen and evaluated. Her abdominal pain is completely resolved. She is ambulating. She is drinking fluids. She is ready to go home.
[2017-06-17 15:19] VITALS: BP 146/87; TEMP 98
--- NOTE | 2017-06-19 20:32 | P.GSHP ---
History of Present Illness H&P Date: 06/15/17 Chief Complaint: Abdominal pain The patient is a 56-year-old female who earlier today had a upper endoscopy with balloon dilatation secondary to stricture of the stomach. She was feeling well prior to discharge home. She then went home and had a protein shake where she developed acute left upper quadrant abdominal pain. She then presented back to the [facility] for further evaluation. She reports the pain is only improved with IV pain meds. No reports of fevers or chills. Hence she has been admitted. - Review of Systems Comment: CONSTITUTIONAL: Denies any fever or chills. HEENT: Denies any trouble with vision, hearing or nosebleeds. Had previous dysphagia to solid foods. LYMPHATIC: The patient denies any lumps and bumps around the neck. ENDOCRINE: Denies any thyroid disorders. Denies any blood sugar glucose intolerance. RESPIRATORY: Denies pneumonia. Denies any troubles with breathing or dyspnea on exertion. CARDIOVASCULAR: Denies any chest pain, palpitations, or recent heart attacks. GASTROINTESTINAL: Denies heart burn. No constipation. GENITOURINARY: Denies any blood in urine or increased urinary frequency. MUSCULOSKELETAL: Has back pain, stiffness, joint arthritis. NEUROLOGIC: Denies any numbness or tingling along the distal extremities. No seizure disorders or headaches. PSYCHIATRIC: Denies depression or suidical ideation. HEMATOLOGIC: Denies any abnormal bleeding or bruising. BREASTS: Denies any breast lumps, pain or nipple discharge. Past Medical History Past Medical History: Diabetes Mellitus, GERD/Reflux, Hypertension, Osteoarthritis (OA), Sleep Apnea/CPAP/BIPAP Additional Past Medical History / Comment(s): "borderline thyroid", no longer needs BP med, has lost 75#, no longer using CPAP History of Any Multi-Drug Resistant Organisms: None Reported Past Surgical History: Bariatric Surgery, Section, Orthopedic Surgery, Tonsillectomy Additional Past Surgical History / Comment(s): lap band placed/3 follow up surgeries then later removed, anterior cervical fusion 12/22/16, gastric sleeve 02/14/17 Past Anesthesia/Blood Transfusion Reactions: No Reported Reaction Past Psychological History: No Psychological Hx Reported Smoking Status: Former smoker Past Alcohol Use History: Rare Additional Past Alcohol Use History / Comment(s): quit smoking 20 years ago, smoked for 15 yrs, 1 PPD Past Drug Use History: None Reported - Past Family History Father Family Medical History: No Reported History Mother Family Medical History: Pulmonary Embolus Medications and Allergies Home Medications Medication Instructions Recorded Confirmed Type Nystatin 100,000 Unit/gm Powd 1 applic TOPICAL BID PRN 02/09/17 06/15/17 History [Mycostatin Powder] Allergies Allergy/AdvReac Type Severity Reaction Status Date / Time Sulfa (Sulfonamide Allergy skin turns Verified 06/15/17 12:58 Antibiotics) red,lethargic environmental allergies Allergy Unknown Uncoded 06/15/17 12:58 Surgical - Exam Vital Signs Temp Pulse Resp BP Pulse Ox 98.4 F 64 14 120/50 99 06/15/17 13:48 06/15/17 13:48 06/15/17 13:48 06/15/17 13:48 06/15/17 13:48 GENERAL: Well developed and in mild distress. HEENT: No sclera icterus. Extraocular movements grossly intact. Moist buccal mucosa. Head is atraumatic, normocephalic. Hears conversational speech. No nasal drainage. NECK: Supple without lymphadenopathy. No JV distention. CHEST: Non-labored respirations and equal bilateral excursions. CARDIOVASCULAR: Regular rate and rhythm. Palpable 2+ radial pulses. ABDOMEN: Soft. Nondistended. Tender along the left upper quadrant. MUSCULOSKELETAL: No clubbing, cyanosis or edema. NEUROLOGIC: No focal or lateralizing signs. Cranial nerves II through XII grossly within normal limits. PSYCH: Appropriate affect. Alert and oriented to person, place and time. SKIN: Good skin turgor. Will perfused. Results - Labs 06/17/17 07:56 06/17/17 07:56 Assessment and Plan Plan: 1. Recommend nothing by mouth. 2. Will need CT of the abdomen and pelvis and additional imaging studies to evaluate for free air. 3. IV fluid hydration. 4. IV antibiotics. 5. DVT prophylaxis. 6. Recommend proton pump inhibitor for GI prophylaxis.
--- NOTE | 2017-06-19 20:38 | P.PN ---
Subjective Principal diagnosis: History of abdominal pain The patient is a 56-year-old female who initially was admitted for abdominal pain. Abdominal pain is completely resolved. She is ambulating. No reports of fevers or chills. She passed her esophagram tests. Objective - Vital Signs Vital signs: Vital Signs Temp 98.8 F 06/17/17 07:43 Pulse 78 06/17/17 08:00 Resp 16 06/17/17 08:00 BP 156/80 06/17/17 07:43 Pulse Ox 92 L 06/17/17 07:43 Intake & Output 06/16/17 06/17/17 06/17/17 18:59 06:59 18:59 Intake Total 200 700 900 Output Total 5 75 Balance 200 695 825 Weight 99.337 kg Intake: IV 200 700 Intake, IV Titration 900 Amount 0.9% NaCl with KCl 20 Meq 800 /l 1,000 ml @ 100 mls/hr IV .Q10H GISEL Rx#: [id number] ceFAZolin 2 gm In Sodium 100 Chloride 0.9% 100 ml @ 100 mls/hr IVPB ONCE ONE Rx#:[id number] Output: Drainage 75 Right Abdomen 75 Estimated Blood Loss 5 Other: Voiding Method Toilet Toilet Toilet # Voids 3 3 3 - Exam GENERAL: Well developed and in no acute distress. Pleasant. HEENT: No sclera icterus. Extraocular movements grossly intact. Moist buccal mucosa. Head is atraumatic, normocephalic. Hears conversational speech. No nasal drainage. NECK: Supple without lymphadenopathy. No JV distention. CHEST: Non-labored respirations and equal bilateral excursions. CARDIOVASCULAR: Regular rate and rhythm. Palpable 2+ radial pulses. ABDOMEN: Soft, nontender. Nondistended. CJ is serosanguineous. No signs of infection. MUSCULOSKELETAL: No clubbing, cyanosis or edema. NEUROLOGIC: No focal or lateralizing signs. PSYCH: Appropriate affect. Alert and oriented to person, place and time. - Labs CBC & Chem 7: 06/17/17 07:56 06/17/17 07:56 Labs: Abnormal Lab Results - Last 24 Hours (Table) 06/17/17 Range/Units 07:56 Chloride 109 H (98-107) mmol/L BUN 6 L (7-17) mg/dL Assessment and Plan (1) Pneumoperitoneum Status: Acute (2) Left upper quadrant pain Status: Acute (3) Gastrojejunal ulcer Status: Acute (4) Abdominal pain Status: Acute Plan: 1. Liquid diet. 2. Recommend Carafate. 3. Continue with CJ drain. 4. May be discharged home. 5. Follow-up in the office in 3-5 days.
--- NOTE | 2017-06-19 20:44 | P.DS ---
Providers Date of admission: 06/15/17 13:46 Expected date of discharge: 06/18/17 Attending physician: Roya Senior Primary care physician: Stated None - Discharge Diagnosis(es) (1) Abdominal pain Status: Acute (2) Gastrojejunal ulcer Status: Acute (3) Left upper quadrant pain Status: Acute (4) Pneumoperitoneum Status: Acute Hospital Course: The patient is a 56-year-old female who initially had an upper endoscopy with balloon dilatation of the gastric stricture. She had done well and gone home and developed acute onset left upper quadrant abdominal pain. Additional imaging was consistent with pneumoperitoneum. As she continued to have abdominal pain she was taken to the operating room for exploration and abdominal washout. Intraoperative findings were consistent with sealed perforation. Esophagram also confirmed no leak. Prior to discharge, her abdominal pain had completely resolved. She was started with Carafate for treatment of gastrojejunal ulcer. Pertinent Studies: Esophagram negative for leak or obstruction. Procedures: 1. Laparoscopic lysis of adhesions. 2. Peritoneal lavage. 3. Placement of CJ drain. 4. Intraoperative esophagogastrojejunoscopy. Patient Condition at Discharge: Good Plan - Discharge Summary New Discharge Prescriptions: New Amoxic-Pot Clav 400-57Mg/5Ml [Augmentin 400-57 mg/5 ml Liquid] 5 ml PO Q12H # 100 bottle Sucralfate [Carafate] 1 gm PO BID #300 ml Discontinued Multivitamins, Thera [Multivitamin (formulary)] 1 tab PO DAILY Calcium Citrate 250 mg PO DAILY Vitamin A 8,000 unit PO DAILY Thiamine [Vitamin B-1] 100 mg PO DAILY No Action Nystatin 100,000 Unit/gm Powd [Mycostatin Powder] 1 applic TOPICAL BID PRN PRN Reason: Rash Discharge Medication List Nystatin 100,000 Unit/gm Powd [Mycostatin Powder] 1 applic TOPICAL BID PRN 02/09 [History] Amoxic-Pot Clav 400-57Mg/5Ml [Augmentin 400-57 mg/5 ml Liquid] 5 ml PO Q12H # 100 bottle 06/17/17 [Rx] Sucralfate [Carafate] 1 gm PO BID #300 ml 06/17/17 [Rx] Follow up Appointment(s)/Referral(s): Roya Senior MD [STAFF PHYSICIAN] - 06/21/17 (May follow-up in the office after work) Patient Instructions/Handouts: Eugene-Sosa Drain Care (GEN), Full Liquid Diet (DC) Activity/Diet/Wound Care/Special Instructions: Liquid diet only. Continue with CJ Discharge Disposition: HOME SELF-CARE
--- NOTE | 2017-06-19 23:03 | P.OP ---
Date of Procedure: 06/16/17 Preoperative Diagnosis: Postoperative Diagnosis: Procedure(s) Performed: Implants: Indications for Procedure: Operative Findings: Description of Procedure: SURGEON: ERNESTINE MINOR MD TAXATION CONSULTANT: None. PREOPERATIVE DIAGNOSES: 1. Left upper quadrant abdominal pain. 2. Pneumoperitoneum. 3. History of leukocytosis. POSTOPERATIVE DIAGNOSES: 1. Left upper quadrant abdominal pain. 2. Pneumoperitoneum. 3. History of leukocytosis. 4. Left upper quadrant peritonitis. 5. Peritoneal adhesions. PROCEDURES PERFORMED: 1. Diagnostic laparoscopy. 2. Laparoscopic lysis of adhesions of 30 minutes lesser omentum to abdominal wall and left upper quadrant. 3. Peritoneal lavage 3 L normal saline. 4. Omental patch over gastrojejunostomy anastomosis. 5. Placement of round of #19 CJ drain anterior to Carlos Alberto patch 6. Intraoperative esophagogastrojejunoscopy ANESTHESIA: General with local. ESTIMATED BLOOD LOSS: 5 mL. SPECIMENS REMOVED: Peritoneal fluid aerobic and anaerobic cultures COMPLICATIONS: None. OPERATIVE FINDINGS: 1. Hyperemia along the anterior abdominal wall left upper quadrant and epigastrium. 2. No active leak identified along gastrojejunostomy. 3. Sealed previous perforation along gastrojejunostomy 4. Negative leak test. 5. Gastrojejunal ulceration at perforation site. INDICATIONS: The patient is a 56-year-old female who presents acutely following endoscopy balloon dilatation. She presented with left upper quadrant abdominal pain. CT of the abdomen and pelvis was consistent with pneumoperitoneum. Benefits and risks, including possibility of open technique were described at length. Informed consent was obtained. DESCRIPTION OF PROCEDURE: Patient was brought to the operating room, laid in supine position. After general induction, the abdomen was prepped and draped in standard sterile fashion. Prior to incision, a timeout protocol was confirmed with surgical team regarding patient's name including procedure to be performed. Preoperative medications including antibiotics were given. Additionally, bilateral SCDs including heparin 5000 units was administered. A 5 mm laparoscopic trocar entry performed of the right upper quadrant after anesthetizing the skin with local anesthetic. Diagnostic laparoscopy demonstrated moderate adhesions of the left upper quadrant where adhesions of the lesser omentum and transverse mesocolon was adherent to the abdominal wall. The small bowel was unremarkable. The bilateral groins were unremarkable for inguinal hernias. The liver surface was completely unremarkable. No gross small bowel dilatation was encountered. Another 5-mm trocar was placed along the epigastrium and a 10-mm trocar was placed along the left lateral abdominal wall under direct localization. Using Sonicision, the adhesion of the left upper abdomen and epigastrium was sharply divided. Blunt dissection along the gastrojejunal anastomosis was performed. A defect along the anterior aspect of the anastomosis was found. Moderate inflammatory changes were found along the gastrojejunal anastomosis consistent with area of previous perforation. No large abscess fluid collection was identified. An intraoperative esophagogastrojejunoscopy was performed. I went to the head of the bed of the patient. An Olympus gastroscope was passed from the posterior oropharynx down to the distal esophagus into the gastric pouch. With the help of the patent legal assistant, the upper pole of the abdomen was copiously irrigated with normal saline. No leak or air bubbles were identified. I re-scrubbed into the case. The abdomen was copiously irrigated with 3 L of normal saline solution until the aspirant was clear. Tisseel was placed circumferentially around the anastomosis. The omentum of the transverse mesocolon was divided as a flap and placed anterior to the gastrojejunal anastomosis. An Endo Stitch using 2-0 Polysorb was placed to reinforce the anastomosis. Via the right upper quadrant, a round # 19 CJ drain was placed and tacked using 2-0 nylon. Final inspection of the abdomen demonstrated adequate hemostasis including no enterotomies. All instruments and pneumoperitoneum were evacuated from the abdominal cavity. Local anesthetic was infiltrated in all wounds for postop analgesia. Dermabond was applied to the skin after reapproximating the incisions with 4-0 Monocryl as described. At the end of the procedure, needle, sponge, and instrument count was verified correct by regional vice president surgical sales. The patient had tolerated the procedure well, was taken to the postanesthesia care unit in stable condition. Intraoperative abdominal films were described and discussed with the patient's family who were overall pleased with the level of care.
== END 2017-06-17 16:09 | disposition home or self-care (01) | DRG 329 ==
LOC: 3SUR 13:46
PROVIDERS: ADMIT Surgery Plastic and Reconstructive Surgery; ATTEND Surgery Plastic and Reconstructive Surgery
PROC: 0DJ08ZZ Inspection of Upper Intestinal Tract, Via Natural or Artificial Opening Endoscopic (ICD-10-PCS; 2017-06-16)
PROC: 3E1M38X Irrigation of Peritoneal Cavity using Irrigating Substance, Percutaneous Approach, Diagnostic (ICD-10-PCS; 2017-06-16)
PROC: 0DU947Z Supplement Duodenum with Autologous Tissue Substitute, Percutaneous Endoscopic Approach (ICD-10-PCS; principal; 2017-06-16 10:45)
DX: K91.89 Other postprocedural complications and disorders of digestive system (principal); K65.9 Peritonitis, unspecified; K28.1 Acute gastrojejunal ulcer with perforation; K66.8 Other specified disorders of peritoneum; E86.0 Dehydration; I10 Essential (primary) hypertension; E11.9 Type 2 diabetes mellitus without complications; K66.0 Peritoneal adhesions (postprocedural) (postinfection); G47.30 Sleep apnea, unspecified; K21.9 Gastro-esophageal reflux disease without esophagitis; M19.90 Unspecified osteoarthritis, unspecified site; Z87.891 Personal history of nicotine dependence; Z88.2 Allergy status to sulfonamides; Z98.84 Bariatric surgery status; Y83.2 Surgical operation with anastomosis, bypass or graft as the cause of abnormal reaction of the patient, or of later complication, without mention of misadventure at the time of the procedure
CPT/HCPCS: 74177; 74240; 80048; 80051; 80053; 82310; 82565; 83735; 84100; 84520; 85025; 88108; 88305

== ENCOUNTER → 2017-06-15 | Outpatient (CLI) | payer BC ==
[2017-06-15 13:12] VITALS: BP 157/74; PULSE 65; RESP 20; TEMP 98.7; BMI 33.7
--- NOTE | 2017-06-26 15:08 | P.PN ---
Progress Note - Text DATE OF SERVICE: 06/15/2017 CHIEF COMPLAINT: Follow up upper endoscopy. HISTORY OF PRESENT ILLNESS: Claire Nix is a 56-year-old female status post Bobby-en-Y gastric bypass 02/14/2017. She has pertinent history of a previous band revision. She then developed increased dysphagia to solid foods. She had an upper endoscopy with balloon dilatation earlier this morning for a tight stricture. Prior to discharge from her upper endoscopy, she was tolerating cold beverage. She went home and then had a protein shake. She then developed acute left upper quadrant abdominal pain. As a result, she presents to the bariatric center. At her height of 5 foot 7-1/2 inches her ideal body weight is 158 pounds. Her highest weight was 318 pounds. Today she comes in weighing 218 pounds. Body mass index has been reduced from 49.2 down to 33.8. She has achieved 62% excess weight loss lifetime. Her total weight loss lifetime is 100 pounds. She reports resolution of her dysphagia following her procedure earlier this morning. PHYSICAL EXAM: VITAL SIGNS: 5 feet 7-1/2 inches, 218 pounds. Body mass index of 33.8. Vital Signs 06/15/17 13:03 Temperature 98.7 F Pulse Rate 65 Respiratory 20 Rate Blood Pressure 157/74 ABDOMEN: Soft, tender along the left upper quadrant. Mild distention. GENERAL: Well-developed female in mild distress. HEENT: No scleral icterus. Extraocular movements grossly intact. Moist buccal mucosa. NECK: Supple without lymphadenopathy. CHEST: Mild labored respirations with equal bilateral excursions. CARDIOVASCULAR: Regular rate and rhythm. MUSCULOSKELETAL: No clubbing, cyanosis, or edema. NEURO: No focal or lateralizing signs. Cranial nerves II through X intact. PSYCH: Appropriate affect. Alert and oriented to person, place, and time. ASSESSMENT: 1. Morbid obesity due to excess calories. 2. Body mass index reduced from 49.2 down to 33.8. 3. History of gastrojejunal stricture. 4. Acute left upper quadrant abdominal pain. 5. Previous history of dysphagia to solid foods. PLAN: 1. Recommend admission for history of acute onset abdominal pain. 2. Nothing by mouth. 3. Recommend labs. 4. Will need additional imaging.
== END | disposition home or self-care (01) ==
LOC: BARWHC3 12:07
PROVIDERS: ATTEND Surgery Plastic and Reconstructive Surgery
DX: Z09 Encounter for follow-up examination after completed treatment for conditions other than malignant neoplasm (principal); E66.01 Morbid (severe) obesity due to excess calories; Z68.33 Body mass index [BMI] 33.0-33.9, adult; Z98.890 Other specified postprocedural states
CPT/HCPCS: 99211

== ENCOUNTER → 2017-06-20 | Outpatient (CLI) | payer BC ==
[2017-06-20 15:12] VITALS: BP 141/79; PULSE 61; RESP 16; TEMP 98.4; BMI 34.7
--- NOTE | 2017-06-20 15:36 | P.PN ---
Progress Note - Text CJ drain Discontinued. No abdominal pain after its removal.
== END | disposition home or self-care (01) ==
LOC: BARWHC3 13:52
PROVIDERS: ATTEND Surgery Plastic and Reconstructive Surgery
DX: Z46.89 Encounter for fitting and adjustment of other specified devices (principal)
CPT/HCPCS: 99201

== ENCOUNTER → 2017-09-28 | Outpatient (CLI) | payer BC ==
[2017-09-28 16:59] VITALS: BP 176/90; PULSE 78; RESP 16; TEMP 98; BMI 30.7
--- NOTE | 2017-11-27 13:41 | P.PN ---
Subjective Progress Note Date: 09/28/17 DATE OF SERVICE: 09/28/2017. CHIEF COMPLAINT: Follow gastric bypass HISTORY OF PRESENT ILLNESS: Claire Nix is a 56-year-old female with a previous history of adjustable gastric band and subsequent removal. She is status post gastric bypass on 02/14/2017. Her severe gastroesophageal reflux disease including diabetes type 2, insulin-dependent has resolved. She is 7 months postop. No reports of dumping syndrome. She also did a 5K run. At her height of 5 feet 7-1/2 inches, her ideal body weight is 158 pounds. Her highest weight was 318 pounds. Today she comes in weighing 198 pounds. She has maintained a 120 pound weight loss lifetime. Percent excess weight loss is 75%. Body mass index is reduced from 49.2 down to 30.7. Total BMI point reduction 18.5. She has lost 26 pounds in 3 months. She is 40 pounds overweight. PAST MEDICAL HISTORY: 1. Morbid obesity. 2. Diabetes type 2, noninsulin dependent. 3. Panniculitis. 4. Obstructive sleep apnea. 5. Osteoarthritis of the bilateral knees. 6. Osteoarthritis of the lower back. 7. Hypertension. 8. Gastroesophageal reflux disease. 9. Hiatal hernia. PAST SURGICAL HISTORY: 1. Adjustable gastric band with multiple revisions x3. 2. . 3. Tonsillectomy. 4. Colonoscopy one year ago. 5. Cervical fusion spinal surgery. 6. Status post gastric bypass. 7. Diagnostic laparoscopy. 8. Upper endoscopy with balloon dilatation. MEDICATIONS: 1. Carafate 2. MVI. ALLERGIES: None listed. SOCIAL HISTORY: Former tobacco use. FAMILY HISTORY: Pertinent for morbid obesity including diabetes and hypertensive heart disease. REVIEW OF SYSTEMS: CONSTITUTIONAL: At her height of 5 feet 7-1/2 inches, her ideal body weight is 158 pounds. Her highest weight was 318 pounds. Today she comes in weighing 198 pounds. She has maintained a 120 pound weight loss lifetime. Percent excess weight loss is 75%. Body mass index is reduced from 49.2 down to 30.7. Total BMI point reduction 18.5. She has lost 26 pounds in 3 months. She is 40 pounds overweight. MUSCULOSKELETAL: History of recent cervical fusion spinal surgery. Osteoarthritis moderately improved. ENDOCRINE: History of insulin-dependent diabetes type 2 resolved. No hypothyroidism. GASTROINTESTINAL: Has gastroesophageal reflux disease, now resolved. No dumping. HEENT: No active troubles with vision or hearing. No reports of dysphagia. RESPIRATORY: Has obstructive sleep apnea, now resolved. No recent pneumonia. Former tobacco user. CARDIOVASCULAR: No recent chest pain or heart attack or palpitations. NEURO: No reports of stroke or seizure disorders. PSYCH: No reports of active depression or suicidal ideation. No reports of anxiety. HEMATOLOGIC: No reports of easy bruising or bleeding. PHYSICAL EXAM: VITAL SIGNS: 5 feet 7-1/2 inches, 198 pounds. Body mass index of 30.7. Vital Signs Temp 98.0 F 09/28/17 16:53 Pulse 78 09/28/17 16:53 Resp 16 09/28/17 16:53 BP 176/90 09/28/17 16:53 Pulse Ox ABDOMEN: Soft, nontender, nondistended. GENERAL: Well-developed female in no acute distress. HEENT: No scleral icterus. Extraocular movements grossly intact. Moist buccal mucosa. NECK: Soft. No adenopathy. CHEST: Nonlabored respirations with equal bilateral excursions. CARDIOVASCULAR: Regular rate and rhythm. ABDOMEN: Obese, soft, nontender, nondistended. Pannus extends over pubis by over 8 cm with panniculitis. MUSCULOSKELETAL: No clubbing, cyanosis, or edema. NEURO: No focal or lateralizing signs. Cranial nerves II-12 grossly intact. PSYCH: Appropriate affect. Alert and oriented to person, place, and time. SKIN: Good skin turgor. Well perfused. ASSESSMENT: 1. Morbid obesity due to excess calories. 2. Body mass index reduced from 49.2 down to 30.7. 3 Status post gastric bypass. 4. Obstructive sleep apnea, resolved. 5. Diabetes type 2, non-insulin dependent, resolved. 6. Osteoarthritis of the bilateral knees, resolved. 7. History of right knee effusion, resolved. 8. Osteoarthritis of the bilateral feet, resolved. 9. Panniculitis. 10. Gastroesophageal reflux disease, resolved. 11. Osteoarthritis of lower back, improved. 12. Obstructive sleep apnea, resolved. 13. Panniculitis. PLAN: 1. Recommend bariatric metabolic panel. 2. Upper endoscopy as needed. 3. Recommend Nystatin powder for panniculitis. 4. Recommend follow-up in November 2017.
== END | disposition home or self-care (01) ==
LOC: BARWHC3 16:06
PROVIDERS: ATTEND Surgery Plastic and Reconstructive Surgery
DX: Z09 Encounter for follow-up examination after completed treatment for conditions other than malignant neoplasm (principal); E66.01 Morbid (severe) obesity due to excess calories; M79.3 Panniculitis, unspecified; K44.9 Diaphragmatic hernia without obstruction or gangrene; I10 Essential (primary) hypertension; M47.9 Spondylosis, unspecified; Z68.30 Body mass index [BMI] 30.0-30.9, adult; Z98.84 Bariatric surgery status; Z87.891 Personal history of nicotine dependence; Z98.890 Other specified postprocedural states
CPT/HCPCS: 97803; 99211

== ENCOUNTER → 2017-11-23 | Outpatient (CLI) | payer BC ==
[2017-11-23 17:29] LABS: HCT 44.3 % (34.0-46.0); HGB 14.2 gm/dL (11.4-16.0); MCH 30.2 pg (25.0-35.0); MCHC 32.1 g/dL (31.0-37.0); MCV 94.1 fL (80.0-100.0); Mean Platelet Volume 7.3; Platelet Count 286 k/uL (150-450); RDW 13.4 % (11.5-15.5); WBC 6.6 k/uL (3.8-10.6)
[2017-11-23 17:36] LABS: Partial Thromboplastin Time 22.7 sec (22.0-30.0)
[2017-11-23 18:06] LABS: ALT 50 U/L (9-52); AST 34 U/L (14-36); Albumin 4.2 g/dL (3.5-5.0); Alkaline Phosphatase 90 U/L (38-126); Anion Gap 10 mmol/L; Blood Urea Nitrogen 15 mg/dL (7-17); Calcium 9.9 mg/dL (8.4-10.2); Carbon Dioxide 30 mmol/L (22-30); Chloride 103 mmol/L (98-107); Cholesterol 163 mg/dL (<200); Glucose 86 mg/dL (74-99); HDL Cholesterol 55 mg/dL (40-60); LDL Cholesterol,Calculated 87 mg/dL (0-99); Magnesium 2.1 mg/dL (1.6-2.3); Phosphorus 4.3 mg/dL (2.5-4.5); Potassium 4.1 mmol/L (3.5-5.1); Sodium 143 mmol/L (137-145); Total Bilirubin 0.3 mg/dL (0.2-1.3); Total Protein 6.6 g/dL (6.3-8.2); Triglycerides 106 mg/dL (<150)
[2017-11-23 18:08] LABS: INR 1.1 (<1.2); Prothrombin Time 10.8 sec (9.0-12.0)
[2017-11-24 01:45] LABS: Iron Saturation 25.08 (12.00-45.00)
[2017-11-24 01:50] LABS: Vitamin D 25 Hydroxy 31.8 ng/mL (30.0-100.0)
[2017-11-24 01:57] LABS: Folate, Serum 18.4 ng/mL
[2017-11-24 02:01] LABS: Parathyroid Hormone Intact 63.3 pg/mL (14.0-72.0)
[2017-11-24 04:49] LABS: Hemoglobin A1C 5.7 % (4.0-6.0)
[2017-11-24 11:13] LABS: Zinc, Serum 66 ug/dL (60-130)
[2017-11-25 02:45] LABS: Vitamin B1 71 ug/L (38-122)
[2017-11-25 06:32] LABS: Vitamin A 40 ug/dL (38-106)
[2017-11-26 11:19] LABS: Selenium 127 mcg/L (63-160)
== END | disposition home or self-care (01) ==
LOC: LABWHC1 16:48
PROVIDERS: ATTEND Surgery Plastic and Reconstructive Surgery
DX: E66.01 Morbid (severe) obesity due to excess calories (principal); E21.1 Secondary hyperparathyroidism, not elsewhere classified; E89.1 Postprocedural hypoinsulinemia; D50.8 Other iron deficiency anemias; E44.0 Moderate protein-calorie malnutrition; E55.9 Vitamin D deficiency, unspecified; K74.1 Hepatic sclerosis; K50.90 Crohn's disease, unspecified, without complications
CPT/HCPCS: 36415; 80053; 80061; 82306; 82525; 82607; 82728; 82746; 83036; 83540; 83550; 83735; 83970; 84100; 84134; 84255; 84425; 84443; 84590; 84630; 85027; 85610; 85730

== ENCOUNTER → 2017-11-30 | Outpatient (CLI) | payer BC ==
[2017-11-30 18:34] VITALS: BP 123/81; PULSE 62; RESP 15; TEMP 98.3; BMI 29.9
--- NOTE | 2018-01-15 15:02 | P.PN ---
Subjective Progress Note Date: 11/30/17 DATE OF SERVICE: 11/30/2017 CHIEF COMPLAINT: Follow gastric bypass HISTORY OF PRESENT ILLNESS: Claire Nix is a 57-year-old female with a previous history of adjustable gastric band and subsequent removal. She is status post gastric bypass on 02/14/2017. Her severe gastroesophageal reflux disease including diabetes type 2, insulin-dependent has resolved. She is 9 months postop. She has an extremely super-active lifestyle. She is taking multivitamin. She is about to get . Personally, she is looking to lose more weight although she is achieved over 100 pound weight loss. She reports chronic panniculitis including pain from the weight of her pannus along the lower back. She has been using prescribe nystatin powder over 1 year. Overall her weight loss has been stable. At her height of 5 feet 7-1/2 inches, her ideal body weight is 158 pounds. Her highest weight was 318 pounds. Today she comes in weighing 194 pounds. She has maintained a 124 pound weight loss lifetime. Percent excess weight loss is 78%. Body mass index is reduced from 49.2 down to 30.0. Total BMI point reduction 19.2. She has lost 4 pounds in 2 months since her last visit. She is 36 pounds overweight. PAST MEDICAL HISTORY: 1. Morbid obesity. 2. Diabetes type 2, noninsulin dependent. 3. Panniculitis. 4. Obstructive sleep apnea. 5. Osteoarthritis of the bilateral knees. 6. Osteoarthritis of the lower back. 7. Hypertension. 8. Gastroesophageal reflux disease. 9. Hiatal hernia. PAST SURGICAL HISTORY: 1. Adjustable gastric band with multiple revisions x3. 2. . 3. Tonsillectomy. 4. Colonoscopy one year ago. 5. Cervical fusion spinal surgery. 6. Status post gastric bypass. 7. Diagnostic laparoscopy. 8. Upper endoscopy with balloon dilatation. MEDICATIONS: 1. Carafate 2. MVI. ALLERGIES: None listed. SOCIAL HISTORY: Former tobacco use. FAMILY HISTORY: Pertinent for morbid obesity including diabetes and hypertensive heart disease. REVIEW OF SYSTEMS: CONSTITUTIONAL: At her height of 5 feet 7-1/2 inches, her ideal body weight is 158 pounds. Her highest weight was 318 pounds. Today she comes in weighing 194 pounds. She has maintained a 124 pound weight loss lifetime. Percent excess weight loss is 78%. Body mass index is reduced from 49.2 down to 30.0. Total BMI point reduction 19.2. She has lost 4 pounds in 2 months since her last visit. She is 36 pounds overweight. MUSCULOSKELETAL: History of recent cervical fusion spinal surgery. Osteoarthritis moderately improved. ENDOCRINE: History of insulin-dependent diabetes type 2 resolved. No hypothyroidism. GASTROINTESTINAL: Has gastroesophageal reflux disease, now resolved. No dumping. HEENT: No active troubles with vision or hearing. No reports of dysphagia. RESPIRATORY: Has obstructive sleep apnea, now resolved. No recent pneumonia. Former tobacco user. CARDIOVASCULAR: No recent chest pain or heart attack or palpitations. NEURO: No reports of stroke or seizure disorders. PSYCH: No reports of active depression or suicidal ideation. No reports of anxiety. HEMATOLOGIC: No reports of easy bruising or bleeding. PHYSICAL EXAM: VITAL SIGNS: 5 feet 7-1/2 inches, 194 pounds. Body mass index of 30.0. Vital Signs Temp 98.3 F 11/30/17 16:22 Pulse 62 11/30/17 16:22 Resp 15 11/30/17 16:22 BP 123/81 11/30/17 16:22 Pulse Ox ABDOMEN: Soft, nontender, nondistended. No incisional hernias along the bariatric sites. GENERAL: Well-developed female in no acute distress. HEENT: No scleral icterus. Extraocular movements grossly intact. Moist buccal mucosa. NECK: Soft. No adenopathy. CHEST: Nonlabored respirations with equal bilateral excursions. CARDIOVASCULAR: Regular rate and rhythm. MUSCULOSKELETAL: No clubbing, cyanosis, or edema. NEURO: No focal or lateralizing signs. Cranial nerves II-12 grossly intact. PSYCH: Appropriate affect. Alert and oriented to person, place, and time. SKIN: Good skin turgor. Well perfused. Pannus extends over pubis by 8 cm. Weight of pannus over 10 pounds. Pannus with hyperemia consistent with panniculitis. Laboratory Last Values WBC 6.6 k/uL (3.8-10.6) 11/23/17 17:08 RBC 4.70 m/uL (3.80-5.40) 11/23/17 17:08 Hgb 14.2 gm/dL (11.4-16.0) 11/23/17 17:08 Hct 44.3 % (34.0-46.0) 11/23/17 17:08 MCV 94.1 fL (80.0-100.0) 11/23/17 17:08 MCH 30.2 pg (25.0-35.0) 11/23/17 17:08 MCHC 32.1 g/dL (31.0-37.0) 11/23/17 17:08 RDW 13.4 % (11.5-15.5) 11/23/17 17:08 Plt Count 286 k/uL (150-450) 11/23/17 17:08 PT 10.8 sec (9.0-12.0) 11/23/17 17:08 INR 1.1 (<1.2) 11/23/17 17:08 APTT 22.7 sec (22.0-30.0) 11/23/17 17:08 Sodium 143 mmol/L (137-145) 11/23/17 17:08 Potassium 4.1 mmol/L (3.5-5.1) 11/23/17 17:08 Chloride 103 mmol/L (98-107) 11/23/17 17:08 Carbon Dioxide 30 mmol/L (22-30) 11/23/17 17:08 Anion Gap 10 mmol/L 11/23/17 17:08 BUN 15 mg/dL (7-17) 11/23/17 17:08 Creatinine 0.73 mg/dL (0.52-1.04) 11/23/17 17:08 Est GFR (MDRD) Af Amer >60 (>60 ml/min/1.73 sqM) 11/23/17 17:08 Est GFR (MDRD) Non-Af >60 (>60 ml/min/1.73 sqM) 11/23/17 17:08 Glucose 86 mg/dL (74-99) 11/23/17 17:[address] Glu mg/dL 117 11/23/17 17:08 Hemoglobin A1c 5.7 % (4.0-6.0) 11/23/17 17:08 Calcium 9.9 mg/dL (8.4-10.2) 11/23/17 17:08 Phosphorus 4.3 mg/dL (2.5-4.5) 11/23/17 17:08 Magnesium 2.1 mg/dL (1.6-2.3) 11/23/17 17:08 Iron 83 ug/dL (50-170) 11/23/17 17:08 TIBC 331 ug/dL (228-460) 11/23/17 17:08 Iron Saturation 25.08 (12.00-45.00) 11/23/17 17:08 Ferritin 106.2 ng/mL (10.0-291.0) 11/23/17 17:08 Total Bilirubin 0.3 mg/dL (0.2-1.3) 11/23/17 17:08 AST 34 U/L (14-36) 11/23/17 17:08 ALT 50 U/L (9-52) 11/23/17 17:08 Alkaline Phosphatase 90 U/L (38-126) 11/23/17 17:08 Total Protein 6.6 g/dL (6.3-8.2) 11/23/17 17:08 Albumin 4.2 g/dL (3.5-5.0) 11/23/17 17:08 Prealbumin 20.0 mg/dL (18.0-42.0) 11/23/17 17:08 Triglycerides 106 mg/dL (<150) 11/23/17 17:08 Cholesterol 163 mg/dL (<200) 11/23/17 17:08 LDL Cholesterol, Calc 87 mg/dL (0-99) 11/23/17 17:08 HDL Cholesterol 55 mg/dL (40-60) 11/23/17 17:08 Vitamin A 40 ug/dL (38-106) 11/23/17 17:08 Vitamin B1 71 ug/L (38-122) 11/23/17 17:08 Vitamin B12 564.0 pg/mL (200.0-944.0) 11/23/17 17:08 Vitamin D 25-Hydroxy 31.8 ng/mL (30.0-100.0) 11/23/17 17:08 Folate 18.4 ng/mL 11/23/17 17:08 TSH 4.020 mIU/L (0.465-4.680) 11/23/17 17:08 PTH Intact 63.3 pg/mL (14.0-72.0) 11/23/17 17:08 Copper 793 ug/L (810-1990) L 11/23/17 17:08 Selenium 127 mcg/L (63-160) 11/23/17 17:08 Zinc 66 ug/dL (60-130) 11/23/17 17:08 Copper is low ASSESSMENT: 1. Morbid obesity due to excess calories. 2. Body mass index reduced from 49.2 down to 30.0. 3 Status post gastric bypass. 4. Obstructive sleep apnea, resolved. 5. Diabetes type 2, non-insulin dependent, resolved. 6. Osteoarthritis of the bilateral knees, resolved. 7. History of right knee effusion, resolved. 8. Osteoarthritis of the bilateral feet, resolved. 9. Panniculitis. 10. Gastroesophageal reflux disease, resolved. 11. Osteoarthritis of lower back, improved. 12. Copper deficiency. PLAN: 1. Recommend increased protein intake at least 75 g daily. 2. Also recommend evaluation for panniculectomy however will await at minimum 1 year post procedure. 3. Continue with nystatin powder. 4. Recommend Copper supplement.
== END | disposition home or self-care (01) ==
LOC: BARWHC3 16:03
PROVIDERS: ATTEND Surgery Plastic and Reconstructive Surgery
DX: Z09 Encounter for follow-up examination after completed treatment for conditions other than malignant neoplasm (principal); M79.3 Panniculitis, unspecified; G89.29 Other chronic pain; E66.01 Morbid (severe) obesity due to excess calories; M47.9 Spondylosis, unspecified; E61.0 Copper deficiency; E11.9 Type 2 diabetes mellitus without complications; E21.1 Secondary hyperparathyroidism, not elsewhere classified; E89.1 Postprocedural hypoinsulinemia; D50.9 Iron deficiency anemia, unspecified; E44.0 Moderate protein-calorie malnutrition; E55.9 Vitamin D deficiency, unspecified; K74.1 Hepatic sclerosis; N19 Unspecified kidney failure; K50.90 Crohn's disease, unspecified, without complications; Z79.899 Other long term (current) drug therapy; Z87.891 Personal history of nicotine dependence; Z98.890 Other specified postprocedural states; Z98.84 Bariatric surgery status; Z68.30 Body mass index [BMI] 30.0-30.9, adult; Z79.891 Long term (current) use of opiate analgesic; Z98.1 Arthrodesis status
CPT/HCPCS: 99211

== ENCOUNTER → 2018-02-15 | Outpatient (CLI) | payer BC ==
[2018-02-15 17:56] VITALS: BP 142/84; PULSE 54; TEMP 98.2; BMI 29.0
--- NOTE | 2018-03-11 18:51 | P.PN ---
Subjective Progress Note Date: 02/15/18 DATE OF SERVICE: 02/15/2018 CHIEF COMPLAINT: Follow up gastric bypass HISTORY OF PRESENT ILLNESS: Claire Nix is a 57-year-old female with a previous history of adjustable gastric band and subsequent removal. She is status post gastric bypass on 02/14/2017. She is 1 year out. No reports of gastroesophageal reflux disease. No dumping syndrome. No reports of abdominal pain. She comes in with complaints of her pannus. Over plus years she is has recurrent panniculitis despite treatment. She has been using nystatin powder. At her height of 5 feet 7-1/2 inches, her ideal body weight is 158 pounds. Her highest weight was 318 pounds. Today she comes in weighing 188 pounds. She has lost another 6 pounds in 3 months. She has maintained a 130 pound weight loss lifetime. Percent excess weight loss is 81 %. Body mass index is reduced from 49.2 down to 29.0. Total BMI point reduction 20.1. She is 30 pounds overweight. PAST MEDICAL HISTORY: 1. Morbid obesity, BMI initial 49.2. 2. Diabetes type 2, noninsulin dependent, resolved 3. Panniculitis. 4. Obstructive sleep apnea, resolved 5. Osteoarthritis of the bilateral knees. 6. Osteoarthritis of the lower back. 7. Hypertension, resolved 8. Gastroesophageal reflux disease, resolved 9. Hiatal hernia. PAST SURGICAL HISTORY: 1. Adjustable gastric band with multiple revisions x3. 2. . 3. Tonsillectomy. 4. Colonoscopy one year ago. 5. Cervical fusion spinal surgery. 6. Status post gastric bypass. 7. Diagnostic laparoscopy. 8. Upper endoscopy with balloon dilatation. MEDICATIONS: 1. Carafate 2. MVI. ALLERGIES: None listed. SOCIAL HISTORY: Former tobacco use. FAMILY HISTORY: Pertinent for morbid obesity including diabetes and hypertensive heart disease. REVIEW OF SYSTEMS: CONSTITUTIONAL: At her height of 5 feet 7-1/2 inches, her ideal body weight is 158 pounds. Her highest weight was 318 pounds. Today she comes in weighing 188 pounds. She has lost another 6 pounds in 3 months. She has maintained a 130 pound weight loss lifetime. Percent excess weight loss is 81 %. Body mass index is reduced from 49.2 down to 29.0. Total BMI point reduction 20.1. She is 30 pounds overweight. MUSCULOSKELETAL: History of recent cervical fusion spinal surgery. Osteoarthritis moderately improved. ENDOCRINE: History of insulin-dependent diabetes type 2 resolved. No hypothyroidism. GASTROINTESTINAL: Has gastroesophageal reflux disease, now resolved. No dumping. HEENT: No active troubles with vision or hearing. No reports of dysphagia. RESPIRATORY: Has obstructive sleep apnea, now resolved. No recent pneumonia. Former tobacco user. CARDIOVASCULAR: No recent chest pain or heart attack or palpitations. NEURO: No reports of stroke or seizure disorders. PSYCH: No reports of active depression or suicidal ideation. No reports of anxiety. HEMATOLOGIC: No reports of easy bruising or bleeding. PHYSICAL EXAM: VITAL SIGNS: 5 feet 7-1/2 inches, 188 pounds. Body mass index of 29.0. Vital Signs Temp 98.2 F 02/15/18 17:49 Pulse 54 L 02/15/18 17:49 Resp BP 142/84 02/15/18 17:49 Pulse Ox ABDOMEN: Soft, nontender, nondistended. No incisional hernias along the bariatric sites. GENERAL: Well-developed female in no acute distress. HEENT: No scleral icterus. Extraocular movements grossly intact. Moist buccal mucosa. NECK: Soft. No adenopathy. CHEST: Nonlabored respirations with equal bilateral excursions. CARDIOVASCULAR: Regular rate and rhythm. MUSCULOSKELETAL: No clubbing, cyanosis, or edema. NEURO: No focal or lateralizing signs. Cranial nerves II-12 grossly intact. PSYCH: Appropriate affect. Alert and oriented to person, place, and time. SKIN: Good skin turgor. Well perfused. Weight of pannus over 10 pounds with hyperemia. ASSESSMENT: 1. Morbid obesity due to excess calories. 2. Body mass index reduced from 49.2 down to 29.0. 3 Status post gastric bypass. 4. Obstructive sleep apnea, resolved. 5. Diabetes type 2, non-insulin dependent, resolved. 6. Osteoarthritis of the bilateral knees, resolved. 7. History of right knee effusion, resolved. 8. Osteoarthritis of the bilateral feet, resolved. 9. Panniculitis. 10. Gastroesophageal reflux disease, resolved. 11. Osteoarthritis of lower back, improved. 12. Copper deficiency. 13. Chronic pain syndrome 14. Massive weight loss, 130 pounds. PLAN: 1. She is 1 year out. Despite nystatin treatment, she has persistent panniculitis. 2. She is still losing weight. Recommend reevaluation panniculectomy was completed. 3. Continue Nystatin powder in the meantime. 4. Correction of Copper deficiency. 5. We had discussion for chronic pain treatment where pain medications are per her primary care provider or pain specialist. 6. Benefits and risks of panniculectomy were described including bleeding, infection, need for further surgery. 7. DVT prophylaxis 8. Antibiotic prophylaxis
== END | disposition home or self-care (01) ==
LOC: BARWHC3 16:14
PROVIDERS: ATTEND Surgery Plastic and Reconstructive Surgery
DX: Z48.815 Encounter for surgical aftercare following surgery on the digestive system (principal); E66.01 Morbid (severe) obesity due to excess calories; M79.3 Panniculitis, unspecified; M19.90 Unspecified osteoarthritis, unspecified site; E61.0 Copper deficiency; G89.4 Chronic pain syndrome; R63.4 Abnormal weight loss; Z68.29 Body mass index [BMI] 29.0-29.9, adult; Z98.84 Bariatric surgery status; Z79.899 Other long term (current) drug therapy; Z71.3 Dietary counseling and surveillance
CPT/HCPCS: 97803; 99211

== ENCOUNTER → 2018-04-18 | Outpatient (CLI) | payer BC ==
[2018-04-18 17:40] LABS: HCT 43.3 % (34.0-46.0); HGB 14.4 gm/dL (11.4-16.0); MCH 31.3 pg (25.0-35.0); MCHC 33.3 g/dL (31.0-37.0); Mean Platelet Volume 7.4; Platelet Count 256 k/uL (150-450); RDW 13.1 % (11.5-15.5)
[2018-04-18 17:45] LABS: INR 1.1 (<1.2); Partial Thromboplastin Time 23.8 sec (22.0-30.0); Prothrombin Time 10.6 sec (9.0-12.0)
[2018-04-18 18:09] LABS: ALT 76 U/L (9-52); AST 60 U/L (14-36); Albumin 4.4 g/dL (3.5-5.0); Alkaline Phosphatase 93 U/L (38-126); Anion Gap 15 mmol/L; Blood Urea Nitrogen 16 mg/dL (7-17); Calcium 9.5 mg/dL (8.4-10.2); Carbon Dioxide 27 mmol/L (22-30); Chloride 103 mmol/L (98-107); Cholesterol 138 mg/dL (<200); Glucose 83 mg/dL (74-99); HDL Cholesterol 62 mg/dL (40-60); LDL Cholesterol,Calculated 65 mg/dL (0-99); Magnesium 2.1 mg/dL (1.6-2.3); Phosphorus 3.9 mg/dL (2.5-4.5); Sodium 145 mmol/L (137-145); Total Bilirubin 0.4 mg/dL (0.2-1.3); Total Protein 6.8 g/dL (6.3-8.2); Triglycerides 56 mg/dL (<150)
[2018-04-19 01:17] LABS: Hemoglobin A1C 5.6 % (4.0-6.0)
[2018-04-19 11:48] LABS: Iron Saturation 25.86 (12.00-45.00)
[2018-04-19 11:57] LABS: Vitamin D 25 Hydroxy 28.1 ng/mL (30.0-100.0)
[2018-04-19 12:01] LABS: Folate, Serum 16.5 ng/mL
[2018-04-20 14:22] LABS: Zinc, Serum 60 ug/dL (60-130)
== END | disposition home or self-care (01) ==
LOC: LABWHC1 16:54
PROVIDERS: ATTEND Surgery Plastic and Reconstructive Surgery
DX: E66.01 Morbid (severe) obesity due to excess calories (principal); E21.1 Secondary hyperparathyroidism, not elsewhere classified; E89.1 Postprocedural hypoinsulinemia; E44.0 Moderate protein-calorie malnutrition; E55.9 Vitamin D deficiency, unspecified; K74.1 Hepatic sclerosis; N19 Unspecified kidney failure; K50.90 Crohn's disease, unspecified, without complications
CPT/HCPCS: 36415; 80053; 80061; 82306; 82525; 82607; 82728; 82746; 83036; 83540; 83550; 83735; 83970; 84100; 84134; 84255; 84425; 84443; 84590; 84630; 85027; 85610; 85730

== ENCOUNTER 2018-04-20 21:19 | Inpatient (IN) | payer BC ==
[2018-04-20] MEDS ORDERED: SODIUM CHLORIDE 0.9% 1,000 ML IV STA (21:31)
[2018-04-20] MEDS ORDERED: MORPHINE SULFATE 2 MG/ML SYRINGE IV STA (21:31)
--- NOTE | 2018-04-20 21:36 | ED ---
Abdominal Pain HPI - General Chief Complaint: Abdominal Pain Stated Complaint: Abd Pain Time Seen by Provider: 04/20/18 21:25 Source: patient Mode of arrival: ambulatory Limitations: no limitations - History of Present Illness Initial Comments: 57-year-old female patient presents to emergency department today for evaluation of left upper quadrant abdominal pain. Patient states this started suddenly 2-3 hours ago. Patient states the pain is severe and does radiate through to her back. She describes it as a sharp, stabbing, uncomfortable pain. States that she has had several episodes of vomiting with this. Denies any constipation or diarrhea. Last bowel movement was this morning and was normal. She denies any fevers or chills with this. Denies any chest pain, shortness of breath, dizziness, or weakness. Patient has had gastric bypass surgery but no other abdominal surgeries. She denies any hematuria, dysuria, urinary frequency, or urinary urgency. Patient denies any recent rash, numbness, tingling, dizziness, weakness, headache, visual changes, or any other complaints. - Related Data Home Medications Medication Instructions Recorded Confirmed No Known Home Medications [No 04/20/18 04/20/18 Known Home Medications] Allergies Allergy/AdvReac Type Severity Reaction Status Date / Time Sulfa (Sulfonamide Allergy skin turns Verified 04/20/18 21:56 Antibiotics) red,lethargic environmental allergies Allergy Unknown Uncoded 02/15/18 17:56 Review of Systems ROS Statement: Those systems with pertinent positive or pertinent negative responses have been documented in the HPI. ROS Other: All systems not noted in ROS Statement are negative. Past Medical History Past Medical History: GERD/Reflux, Osteoarthritis (OA) Additional Past Medical History / Comment(s): "borderline thyroid", no longer needs BP med, has lost 75#, no longer using CPAP, low back pain (has significantly increased with weight loss) History of Any Multi-Drug Resistant Organisms: None Reported Past Surgical History: Bariatric Surgery, Section, Orthopedic Surgery, Tonsillectomy Additional Past Surgical History / Comment(s): lap band placed/3 follow up surgeries then later removed, anterior cervical fusion 12/22/16, gastric bypass 02/14/17 Past Anesthesia/Blood Transfusion Reactions: No Reported Reaction Past Psychological History: No Psychological Hx Reported Smoking Status: Former smoker Past Alcohol Use History: Rare Past Drug Use History: None Reported - Past Family History Father Family Medical History: No Reported History Mother Family Medical History: Pulmonary Embolus General Exam Limitations: no limitations General appearance: alert, in no apparent distress, other (This is a well- developed, well-nourished adult female patient in mild distress related to pain. Vital signs upon presentation are temperature 97.9F, pulse 66, respirations 18, blood pressure 174/101, pulse ox 100% on room air.) Eye exam: Present: normal appearance, PERRL, EOMI. Absent: scleral icterus, conjunctival injection, periorbital swelling ENT exam: Present: normal exam, normal oropharynx, mucous membranes moist Respiratory exam: Present: normal lung sounds bilaterally. Absent: respiratory distress, wheezes, rales, rhonchi, stridor Cardiovascular Exam: Present: regular rate, normal rhythm, normal heart sounds. Absent: systolic murmur, diastolic murmur, rubs, gallop, clicks GI/Abdominal exam: Present: soft, tenderness (Generalized abdominal tenderness) , normal bowel sounds. Absent: distended, guarding, rebound, rigid Neurological exam: Present: alert, oriented X3, CN II-XII intact Psychiatric exam: Present: normal affect, normal mood Skin exam: Present: warm, dry, intact, normal color. Absent: rash Course Vital Signs 04/20/18 04/20/18 04/21/18 21:20 23:24 01:19 Temperature 97.9 F 97.8 F Pulse Rate 66 60 57 L Respiratory 18 18 16 Rate Blood Pressure 174/101 150/84 169/83 O2 Sat by Pulse 100 100 100 Oximetry Medical Decision Making - Medical Decision Making 57-year-old female patient presents to the emergency department today for evaluation of severe left upper quadrant abdominal pain and vomiting. Patient states he started suddenly 2-3 hours ago. Patient denies any history of similar pain. Physical examination did reveal some generalized abdominal tenderness. Labs reviewed and are relatively unremarkable. White blood cell count was not elevated. Urinalysis was negative for any evidence of infection. CT of the abdomen and pelvis was obtained and did show a proximal small bowel obstruction with dilated loops in the left upper quadrant. Patient has had previous abdominal surgeries by Dr. Valdes and requests her services again. Patient will be admitted to the hospital. We did withhold NG tube at this time given patient's history of Bobby-en-Y gastric bypass. Patient will be provided pain management and IV fluids. She'll be placed nothing by mouth. Did discuss results with the patient she agrees with this plan. - Lab Data Result diagrams: 04/20/18 22:40 04/20/18 22:40 Lab Results 04/20/18 04/20/18 04/20/18 Range/Units 22:40 22:40 22:40 WBC 7.5 (3.8-10.6) k/uL RBC 4.49 (3.80-5.40) m/uL Hgb 14.0 (11.4-16.0) gm/dL Hct 41.8 (34.0-46.0) % MCV 93.2 (80.0-100.0) fL MCH 31.2 (25.0-35.0) pg MCHC 33.4 (31.0-37.0) g/dL RDW 13.1 (11.5-15.5) % Plt Count 244 (150-450) k/uL Neutrophils % 60 % Lymphocytes % 31 % Monocytes % 6 % Eosinophils % 2 % Basophils % 0 % Neutrophils # 4.4 (1.3-7.7) k/uL Lymphocytes # 2.3 (1.0-4.8) k/uL Monocytes # 0.4 (0-1.0) k/uL Eosinophils # 0.1 (0-0.7) k/uL Basophils # 0.0 (0-0.2) k/uL Sodium 145 (137-145) mmol/L Potassium 4.0 (3.5-5.1) mmol/L Chloride 107 (98-107) mmol/L Carbon Dioxide 25 (22-30) mmol/L Anion Gap 13 mmol/L BUN 13 (7-17) mg/dL Creatinine 0.70 (0.52-1.04) mg/dL Est GFR (CKD-EPI)AfAm >90 (>60 ml/min/1.73 sqM) Est GFR (CKD-EPI)NonAf >90 (>60 ml/min/1.73 sqM) Glucose 139 H (74-99) mg/dL Calcium 9.8 (8.4-10.2) mg/dL Total Bilirubin 0.5 (0.2-1.3) mg/dL AST 36 (14-36) U/L ALT 65 H (9-52) U/L Alkaline Phosphatase 96 (38-126) U/L Total Protein 6.5 (6.3-8.2) g/dL Albumin 4.2 (3.5-5.0) g/dL Amylase 54 (30-110) U/L Lipase 82 (23-300) U/L Urine Color Yellow Urine Appearance Clear (Clear) Urine pH 7.0 (5.0-8.0) Ur Specific [place] 1.020 (1.001-1.035) Urine Protein Negative (Negative) Urine Glucose (UA) Negative (Negative) Urine Ketones Negative (Negative) Urine Blood Negative (Negative) Urine Nitrite Negative (Negative) Urine Bilirubin Negative (Negative) Urine Urobilinogen <2.0 (<2.0) mg/dL Ur Leukocyte Esterase Negative (Negative) - Radiology Data Radiology results: report reviewed, image reviewed CT of the abdomen and pelvis with contrast was obtained. Report was reviewed in its entirety. Impression by Dr. Hdez shows dilated bowel in the left upper quadrant consistent with a mechanical proximal small bowel obstruction. This is new compared to the old computed tomography scan of 06/15/2017. Small bowel follow-through exam would be helpful for further evaluation of clinically indicated. There is improvement in the infiltrate and atelectasis at the lung bases compared to old exam. Disposition Clinical Impression: Small bowel obstruction Disposition: ADMITTED IP TO THIS [facility] Condition: Serious Referrals: Jesus Cee MD [Primary Care Provider] - 1-2 days Decision to Admit Reason: Admit from EC Decision Date: 04/21/18 Decision Time: 01:27
[2018-04-20] MEDS: ONDANSETRON 4 MG/2 ML VIAL IVP STA (22:13)
[2018-04-20 22:59] LABS: Basophils % (A) 0 %; Eosinophils # (A) 0.1 k/uL (0-0.7); Eosinophils % (A) 2 %; HCT 41.8 % (34.0-46.0); Lymphocytes # (A) 2.3 k/uL (1.0-4.8); Lymphocytes % (A) 31 %; MCH 31.2 pg (25.0-35.0); MCHC 33.4 g/dL (31.0-37.0); MCV 93.2 fL (80.0-100.0); Mean Platelet Volume 7.6; Monocytes # (A) 0.4 k/uL (0-1.0); Monocytes % (A) 6 %; Neutrophils # (A) 4.4 k/uL (1.3-7.7); Neutrophils % (A) 60 %; Platelet Count 244 k/uL (150-450); RBC 4.49 m/uL (3.80-5.40); RDW 13.1 % (11.5-15.5); WBC 7.5 k/uL (3.8-10.6)
[2018-04-20 23:00] LABS: Appearance,Urine Clear (Clear); Bilirubin,Urine Negative (Negative); Blood,Urine Negative (Negative); Color,Urine Yellow; Glucose,Urine (UA) Negative (Negative); Ketones,Urine Negative (Negative); Leukocyte Esterase,Urine Negative (Negative); Nitrite,Urine Negative (Negative); Protein,Urine Negative (Negative); Urobilinogen,Urine <2.0 mg/dL (<2.0)
[2018-04-20 23:08] LABS: ALT 65 U/L (9-52); AST 36 U/L (14-36); Albumin 4.2 g/dL (3.5-5.0); Alkaline Phosphatase 96 U/L (38-126); Amylase 54 U/L (30-110); Anion Gap 13 mmol/L; Blood Urea Nitrogen 13 mg/dL (7-17); Calcium 9.8 mg/dL (8.4-10.2); Carbon Dioxide 25 mmol/L (22-30); Chloride 107 mmol/L (98-107); Glucose 139 mg/dL (74-99); Lipase 82 U/L (23-300); Sodium 145 mmol/L (137-145); Total Bilirubin 0.5 mg/dL (0.2-1.3); Total Protein 6.5 g/dL (6.3-8.2)
--- NOTE | 2018-04-21 00:31 | CT ---
EXAMINATION TYPE: CT abdomen pelvis w con DATE OF EXAM: 04/20/2018 COMPARISON: June 15, 2017 HISTORY: Prev. on synapse. abd pain and vomiting,Hx. of bariatric surgery. CT DLP: 900.40 mGycm Automated exposure control for dose reduction was used. TECHNIQUE: Helical acquisition of images was performed from the lung bases through the pelvis. CONTRAST: Performed without Oral Contrast and with IV Contrast, patient injected with 75 mL of Isovue 300. FINDINGS: There is mild subsegmental atelectasis at the posterior lung bases. There are clips from bariatric freedman rgery. Liver shows no focal defect. Gallbladder appears normal. Bile ducts are not dilated. Spleen ap pears normal. There is no evidence of pancreatic mass. There is no adrenal mass. Kidneys show satisfactory contrast opacification. There is no hydronephrosi s. There are some dilated loops of bowel in the left upper quadrant that appear to be proximal small bowel. Distal small bowel is not dilated. These measure up to 4.2 cm. I see no bony destructive proce ss. There is no compression fracture. IMPRESSION: DILATED BOWEL IN THE LEFT UPPER QUADRANT CONSISTENT WITH A MECHANICAL PROXIMAL SMALL BOWEL OBSTRUCTIO N. THIS IS NEW COMPARED TO THE OLD CT SCAN OF JUNE 15, 2017. SMALL BOWEL FOLLOW-THROUGH EXAM WOULD B E HELPFUL FOR FURTHER EVALUATION IF CLINICALLY INDICATED. There is improvement in the infiltrate and atelectasis at the lung bases compared to old exam.
[2018-04-21] MEDS ORDERED: MORPHINE SULFATE 2 MG/ML SYRINGE IVP STA (01:20)
[2018-04-21] MEDS ORDERED: NALOXONE 0.4 MG/ML 1 ML VIAL IV PRN (01:20)
[2018-04-21] MEDS ORDERED: ONDANSETRON 4 MG/2 ML VIAL IVP PRN (01:20)
[2018-04-21] MEDS ORDERED: SODIUM CHLORIDE 0.9% 1,000 ML IV SCH (01:30)
[2018-04-21 02:33] VITALS: BMI 27.3
[2018-04-21] MEDS: MORPHINE SULFATE 2 MG/ML SYRINGE IV PRN ×4 (04:22→14:39)
[2018-04-21] MEDS ORDERED: SODIUM CHLORIDE 0.9% 2,000 ML IV ONE (06:20)
--- NOTE | 2018-04-21 08:22 | P.GSHP ---
History of Present Illness H&P Date: 04/21/18 DATE OF SERVICE: 04/21/2018 CHIEF COMPLAINT: Small bowel obstruction HISTORY OF PRESENT ILLNESS: Claire Nix is a 57-year-old female with a previous history of adjustable gastric band and subsequent removal. She is status post gastric bypass on 02/14/2017. She presents after 24 hour history of acute generalized abdominal pain. She reports intolerance to eating. No passage of flatus. Last bowel movement was yesterday. Since admission, her abdominal pain is moderate requiring IV pain meds. She denies any previous episodes. CT of the pelvis demonstrated an abnormality with small bowel obstruction hence her admission. PAST MEDICAL HISTORY: 1. Morbid obesity, BMI initial 49.2. 2. Diabetes type 2, noninsulin dependent, resolved 3. Panniculitis. 4. Obstructive sleep apnea, resolved 5. Osteoarthritis of the bilateral knees. 6. Osteoarthritis of the lower back. 7. Hypertension, resolved 8. Gastroesophageal reflux disease, resolved 9. Hiatal hernia. PAST SURGICAL HISTORY: 1. Adjustable gastric band with multiple revisions x3. 2. . 3. Tonsillectomy. 4. Colonoscopy one year ago. 5. Cervical fusion spinal surgery. 6. Status post gastric bypass. 7. Diagnostic laparoscopy. 8. Upper endoscopy with balloon dilatation. MEDICATIONS: 1. Carafate 2. MVI. ALLERGIES: None listed. SOCIAL HISTORY: Former tobacco use. FAMILY HISTORY: Pertinent for morbid obesity including diabetes and hypertensive heart disease. REVIEW OF SYSTEMS: CONSTITUTIONAL: At her height of 5 feet 7-1/2 inches, her ideal body weight is 158 pounds. Her highest weight was 318 pounds. Today she comes in weighing 188 pounds. She has lost another 6 pounds in 3 months. She has maintained a 130+ pound weight loss lifetime. Percent excess weight loss is 81 %. Body mass index is reduced from 49.2 down to 29.0. Total BMI point reduction 20.1. She is 30 pounds overweight. MUSCULOSKELETAL: History of recent cervical fusion spinal surgery. Osteoarthritis moderately improved. ENDOCRINE: History of insulin-dependent diabetes type 2 resolved. No hypothyroidism. GASTROINTESTINAL: Has gastroesophageal reflux disease, now resolved. No dumping. HEENT: No active troubles with vision or hearing. No reports of dysphagia. RESPIRATORY: Has obstructive sleep apnea, now resolved. No recent pneumonia. Former tobacco user. CARDIOVASCULAR: No recent chest pain or heart attack or palpitations. NEURO: No reports of stroke or seizure disorders. PSYCH: No reports of active depression or suicidal ideation. No reports of anxiety. HEMATOLOGIC: No reports of easy bruising or bleeding. PHYSICAL EXAM: VITAL SIGNS: 5 feet 7-1/2 inches, 174 pounds. Body mass index of 27.4. Vital Signs Temp 98.5 F 04/21/18 14:11 Pulse 48 L 04/21/18 14:11 Resp 16 04/21/18 14:11 BP 110/70 04/21/18 14:11 Pulse Ox 96 04/21/18 14:11 Intake & Output 04/20/18 04/21/18 04/21/18 18:59 06:59 18:59 Intake Total 320 Balance 320 Weight 79.379 kg Intake: Intake, IV Titration 320 Amount Sodium Chloride 0.9% 1, 320 000 ml @ 80 mls/hr IV . [id number] GISEL Rx#:[id number] Other: Voiding Method Toilet Toilet # Voids 2 3 ABDOMEN: Soft, tender, mild distention. Tenderness along the periumbilical area. No peritonitis. Patient just received pain medication. GENERAL: Well-developed female in no acute distress. HEENT: No scleral icterus. Extraocular movements grossly intact. Moist buccal mucosa. NECK: Soft. No adenopathy. CHEST: Nonlabored respirations with equal bilateral excursions. CARDIOVASCULAR: Regular rate and rhythm. MUSCULOSKELETAL: No clubbing, cyanosis, or edema. NEURO: No focal or lateralizing signs. Cranial nerves II-12 grossly intact. PSYCH: Appropriate affect. Alert and oriented to person, place, and time. SKIN: Good skin turgor. Well perfused. ASSESSMENT: 1. Small bowel obstruction 2. Body mass index reduced from 49.2 down to 27.4 3 Status post gastric bypass. 4. Massive weight loss, 130+ pounds. PLAN: 1. Recommend diagnostic laparoscopy with lysis of adhesions with history of small bowel obstruction and gastric bypass. 2. DVT prophylaxis 3. Antibiotic prophylaxis 4. IV fluid hydration. 5. Inpatient hospitalization secondary to small bowel obstruction. 6. Hold NG tube for history of gastric bypass. Past Medical History Past Medical History: GERD/Reflux, Osteoarthritis (OA) Additional Past Medical History / Comment(s): "borderline thyroid", no longer needs BP med, has lost 75#, no longer using CPAP, low back pain (has significantly increased with weight loss) History of Any Multi-Drug Resistant Organisms: None Reported Past Surgical History: Bariatric Surgery, Section, Orthopedic Surgery, Tonsillectomy Additional Past Surgical History / Comment(s): lap band placed/3 follow up surgeries then later removed, anterior cervical fusion 12/22/16, gastric bypass 02/14/17 Past Anesthesia/Blood Transfusion Reactions: No Reported Reaction Past Psychological History: No Psychological Hx Reported Smoking Status: Former smoker Past Alcohol Use History: Rare Additional Past Alcohol Use History / Comment(s): quit smoking 20 years ago, smoked for 15 yrs, 1 PPD Past Drug Use History: None Reported - Past Family History Father Family Medical History: No Reported History Mother Family Medical History: Pulmonary Embolus Medications and Allergies Home Medications Medication Instructions Recorded Confirmed Type No Known Home Medications [No 04/20/18 04/20/18 History Known Home Medications] Allergies Allergy/AdvReac Type Severity Reaction Status Date / Time Sulfa (Sulfonamide Allergy skin turns Verified 04/20/18 21:56 Antibiotics) red,lethargic environmental allergies Allergy Unknown Uncoded 02/15/18 17:56 Surgical - Exam Vital Signs Temp Pulse Resp BP Pulse Ox 97.9 F 66 18 174/101 100 04/20/18 21:20 04/20/18 21:20 04/20/18 21:20 04/20/18 21:20 04/20/18 21:20 Results - Labs 04/20/18 22:40 04/20/18 22:40 Abnormal Lab Results - Last 24 Hours (Table) 04/20/18 Range/Units 22:40 Glucose 139 H (74-99) mg/dL ALT 65 H (9-52) U/L Diabetes panel 04/20/18 Range/Units 22:40 Sodium 145 (137-145) mmol/L Potassium 4.0 (3.5-5.1) mmol/L Chloride 107 (98-107) mmol/L Carbon Dioxide 25 (22-30) mmol/L BUN 13 (7-17) mg/dL Creatinine 0.70 (0.52-1.04) mg/dL Glucose 139 H (74-99) mg/dL Calcium 9.8 (8.4-10.2) mg/dL AST 36 (14-36) U/L ALT 65 H (9-52) U/L Alkaline Phosphatase 96 (38-126) U/L Total Protein 6.5 (6.3-8.2) g/dL Albumin 4.2 (3.5-5.0) g/dL Calcium panel 04/20/18 Range/Units 22:40 Calcium 9.8 (8.4-10.2) mg/dL Albumin 4.2 (3.5-5.0) g/dL Pituitary panel 04/20/18 Range/Units 22:40 Sodium 145 (137-145) mmol/L Potassium 4.0 (3.5-5.1) mmol/L Chloride 107 (98-107) mmol/L Carbon Dioxide 25 (22-30) mmol/L BUN 13 (7-17) mg/dL Creatinine 0.70 (0.52-1.04) mg/dL Glucose 139 H (74-99) mg/dL Calcium 9.8 (8.4-10.2) mg/dL Adrenal panel 04/20/18 Range/Units 22:40 Sodium 145 (137-145) mmol/L Potassium 4.0 (3.5-5.1) mmol/L Chloride 107 (98-107) mmol/L Carbon Dioxide 25 (22-30) mmol/L BUN 13 (7-17) mg/dL Creatinine 0.70 (0.52-1.04) mg/dL Glucose 139 H (74-99) mg/dL Calcium 9.8 (8.4-10.2) mg/dL Total Bilirubin 0.5 (0.2-1.3) mg/dL AST 36 (14-36) U/L ALT 65 H (9-52) U/L Alkaline Phosphatase 96 (38-126) U/L Total Protein 6.5 (6.3-8.2) g/dL Albumin 4.2 (3.5-5.0) g/dL
[2018-04-21] MEDS: SODIUM CHLORIDE 0.9% 1,000 ML IV SCH ×2 (10:15→20:06)
[2018-04-21] MEDS ORDERED: ceFAZolin IN SWFI 2 GM/20 ML SYRINGE IVP ONE (15:06)
[2018-04-21] MEDS ORDERED: IV FLUID CONTINUATION 1,000 ML IV ONE ×2 (15:41)
[2018-04-21] MEDS: ACETAMINOPHEN IV (For NPO) 1,000 MG in EMPTY BAG 1 BAG IVPB ONE ×2 (15:58→16:26)
[2018-04-21] MEDS: ONDANSETRON 4 MG/2 ML VIAL IVP STA (15:58)
[2018-04-21] MEDS: HEPARIN SODIUM,PORCINE 5,000 UNIT/ML 1 ML VIAL SQ ONE ×2 (16:02→20:05)
[2018-04-21] MEDS ORDERED: fentaNYL (PF) 50 MCG/ML 2 ML AMP ONE (16:30)
[2018-04-21] MEDS ORDERED: NEOSTIGMINE 1 MG/ML 10 ML VIAL ONE (16:30)
[2018-04-21] MEDS ORDERED: PROPOFOL 10 MG/ML 20 ML VIAL IV ONE (16:30)
[2018-04-21] MEDS ORDERED: ROCURONIUM BROMIDE 10 MG/ML 10 ML VIAL IV ONE (16:30)
[2018-04-21] MEDS ORDERED: MIDAZOLAM 2 MG/2 ML VIAL ONE (16:30)
[2018-04-21] MEDS ORDERED: LIDOCAINE 1% INJ 10MG/ML (20 ML MDV) ONE (16:30)
[2018-04-21] MEDS ORDERED: ePHEDrine SULFATE/0.9% NACL/PF 50 MG/5 ML SYRINGE IV ONE (16:30)
[2018-04-21] MEDS ORDERED: GLYCOPYRROLATE 0.2 MG/ML 2 ML VIAL ONE (16:30)
[2018-04-21] MEDS ORDERED: BUPIVACAINE (PF) 0.5% 30 ML VIAL SQ ONE (17:03)
[2018-04-21] MEDS ORDERED: LACTATED RINGERS 1,000 ML IV ONE (17:24)
[2018-04-21] MEDS ORDERED: METOCLOPRAMIDE 5 MG/ML 2 ML VIAL IVP PRN (18:40)
--- NOTE | 2018-04-21 18:46 | P.PCN ---
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 Internal hernia at the jejunojejunostomy causing a closed-loop small bowel obstruction despite previous closure on index operation 2. Internal hernia involving mesentery of the cecum and terminal ileum also reduced 3. Small bowel viable 4. Closure of jejunojejunostomy mesenteric defect performed 5. Closure small bowel obstruction confirmed with antegrade and retrograde evaluation from ligament of Treitz to ileocecal valve 4 times
[2018-04-21 19:18] VITALS: RESP 16
[2018-04-21] MEDS: HYDROcodone/APAP 5-325MG 1 EACH TAB PO PRN (20:44)
[2018-04-22] MEDS: SODIUM CHLORIDE 0.9% 1,000 ML IV SCH ×2 (02:47→07:05)
[2018-04-22] MEDS: HYDROcodone/APAP 5-325MG 1 EACH TAB PO PRN ×2 (02:47→10:37)
[2018-04-22] MEDS ORDERED: ENOXAPARIN 30 MG/0.3 ML SYRINGE SQ SCH (09:00)
[2018-04-22 12:38] VITALS: BP 135/81; PULSE 62; TEMP 98.1
--- NOTE | 2018-04-22 12:40 | P.DS ---
Providers Date of admission: 04/21/18 01:27 Expected date of discharge: 04/22/18 Attending physician: Roya Senior Primary care physician: Jesus Cee [facility] Course: Patient doing well today. Was admitted for small bowel obstruction. Yesterday underwent laparoscopic lysis of adhesions. Tolerating diet at this time. Minimal abdominal pain. Patient quite anxious to go home today. Vital signs remain stable. Will plan discharge today with outpatient follow-up with Dr. Valdes later this week. Gradually advance from liquids. Patient Condition at Discharge: Serious Plan - Discharge Summary Discharge Rx Participant: Yes New Discharge Prescriptions: New HYDROcodone/APAP 7.5-325MG [[place] 7.5-325] 1 tab PO Q4H PRN 3 Days #18 tab PRN Reason: Pain Discharge Medication List HYDROcodone/APAP 7.5-325MG [[place] 7.5-325] 1 tab PO Q4H PRN 3 Days #18 tab 04/21 [Rx] Follow up Appointment(s)/Referral(s): [facility] [[facility]-STAFF] - 04/26/18 Jesus Cee MD [Primary Care Provider] - 1-2 days (CALL OFFICE ON TUESDAY TO SCHEDULE APPOINTMENT, OFFICE CLOSED AT TIME OF DISCHARGE.) Patient Instructions/Handouts: Exploratory Laparoscopy (DC) Activity/Diet/Wound Care/Special Instructions: No lifting over 4 pounds in 2 weeks. May shower. No bathtub soaks. Discharge Disposition: HOME SELF-CARE
--- NOTE | 2018-05-01 06:57 | P.OP ---
Date of Procedure: 04/21/18 Description of Procedure: Date of Procedure: 04/21/18 SURGEON: ERNESTINE MINOR MD PRINT CUTTER: None. PREOPERATIVE DIAGNOSES: 1. Left upper abdominal pain 2. Small bowel obstruction. 3. Status post gastric bypass. 4. Status post massive weight loss, over 130+ pounds 5. Morbid obesity due to excess calories resolved. 6. Body mass index reduced from 49.2 down to 27.4. 7. Obstructive sleep apnea, resolved. 8. Diabetes type 2, non-insulin dependent, resolved. 9. Osteoarthritis of the bilateral knees, resolved. 10. History of right knee effusion, resolved. 11. Osteoarthritis of the bilateral feet, resolved. 12. Panniculitis. 13. Chronic pain syndrome POSTOPERATIVE DIAGNOSES: 1. Left upper abdominal pain 2. Small bowel obstruction. 3. Status post gastric bypass. 4. Status post massive weight loss, over 130+ pounds 5. Morbid obesity due to excess calories resolved. 6. Body mass index reduced from 49.2 down to 27.4. 7. Obstructive sleep apnea, resolved. 8. Diabetes type 2, non-insulin dependent, resolved. 9. Osteoarthritis of the bilateral knees, resolved. 10. History of right knee effusion, resolved. 11. Osteoarthritis of the bilateral feet, resolved. 12. Panniculitis. 13. Chronic pain syndrome 14. Small bowel volvulus involving the jejunum 15. Adhesive band disease involving left upper quadrant 16. Jejunojejunostomy internal hernia 17. Mesenteric internal hernia with volvulus of the terminal ileum PROCEDURES PERFORMED: 1. Diagnostic laparoscopy. 2. Laparoscopic lysis of adhesions over 1 hour 3. Laparoscopic reduction of small bowel volvulus 4. Laparoscopic reduction of internal hernia and closure of jejunojejunostomy mesenteric defect 5. Laparoscopic excision of adhesive band disease left upper quadrant 6. Laparoscopic reduction of internal hernia and volvulus involving terminal ileum Anesthesia: GETA, local Estimated Blood Loss (ml): 5 Pathology: none sent Condition: stable Disposition: floor OPERATIVE FINDINGS: 1. Internal hernia at the jejunojejunostomy causing a closed-loop small bowel obstruction despite previous closure on index operation 2. Internal hernia involving mesentery of the cecum and terminal ileum also reduced 3. Small bowel viable 4. Closure of jejunojejunostomy mesenteric defect performed 5. Closure small bowel obstruction confirmed with antegrade and retrograde evaluation from ligament of Treitz to ileocecal valve 4 times INDICATIONS: The patient is a 57-year-old female who presents over 2 year out from a gastric bypass. She reports developing primarily left upper quadrant abdominal pain including new small bowel obstruction. She had a CT of the abdomen and pelvis demonstrating a mesenteric swirl along the left upper quadrant highly suspicious of an internal hernia. As her symptoms have progressed, diagnostic laparoscopy with lysis of adhesions was described. Benefits and risks, including possibility of open technique were described at length. Informed consent was obtained. DESCRIPTION OF PROCEDURE: Patient was brought to the operating room and laid in supine position. After general induction, the abdomen was prepped and draped in standard sterile fashion. Prior to incision, a timeout protocol was confirmed with surgical team regarding patient's name including procedure to be performed. Preoperative medications including antibiotics were given. Additionally, bilateral SCDs including heparin was administered. A 5 mm laparoscopic trocar entry performed of the left upper quadrant after anesthetizing the skin with local anesthetic. The abdomen was insufflated to 15 mmHg pressure she tolerated well. Diagnostic laparoscopy demonstrated moderately dilated bobby. Diffuse small bowel dilatation was encountered consistent with small bowel obstruction. Along the bilateral groins, no inguinal hernias were identified. Two 5-mm trocars were placed along the left lateral abdominal wall. The base of the cecum was without inflammation. The appendix was unremarkable. The small bowel was investigated from the terminal ileum proximally. Internal hernia involving ileocolic mesentery with volvulus was found and reduced. A thick adhesive band was identified and resected using Harmonic scalpel at the left upper quadrant. Once released, the bobby limb was reduced from its volvulus at the jejunojejunostomy mesenteric defect. The small bowel obstruction was relieved. In anterograde fashion, the gastric pouch including Bobby limb was investigated towards the jejunojejunostomy. No Rider's defect was identified. The jejunojejunostomy mesenteric defect was closed using 2-0 Surgidec on an Endostitch after placing two more 5-mm ports along the right lateral abdominal wall. The 5-mm port along the left upper quadrant was exchanged for a 10-mm port. The small bowel was re-investigated in a retrograde fashion as well as the antegrade fashion to confirm closure of all internal hernias including reduction of any small bowel volvulus. Final inspection of the abdomen demonstrated adequate hemostasis including no enterotomies. All instruments and pneumoperitoneum were evacuated from the abdominal cavity. All local was infiltrated in all wounds for postop analgesia. The skin was cleansed with hydrogen peroxide. Liquid glue was applied to the skin after re- approximating the incisions with 4-0 Monocryl as described. At the end of the procedure, needle, sponge, and instrument count was verified correct by the engineering specialist technician. The patient had tolerated the procedure well and was taken to the postanesthesia care unit in stable condition.
== END 2018-04-22 11:10 | disposition home or self-care (01) | DRG 337 ==
LOC: EC 21:19 → 3SUR 04-21 01:27
PROVIDERS: ADMIT Surgery Plastic and Reconstructive Surgery; ATTEND Surgery Plastic and Reconstructive Surgery
PROC: 0DSA4ZZ Reposition Jejunum, Percutaneous Endoscopic Approach (ICD-10-PCS; 2018-04-21)
PROC: 0DQV4ZZ Repair Mesentery, Percutaneous Endoscopic Approach (ICD-10-PCS; 2018-04-21)
PROC: 0WQF4ZZ Repair Abdominal Wall, Percutaneous Endoscopic Approach (ICD-10-PCS; 2018-04-21)
PROC: 0DN84ZZ Release Small Intestine, Percutaneous Endoscopic Approach (ICD-10-PCS; principal; 2018-04-21 07:30)
DX: K56.2 Volvulus (principal); K21.9 Gastro-esophageal reflux disease without esophagitis; M17.0 Bilateral primary osteoarthritis of knee; M47.9 Spondylosis, unspecified; K44.9 Diaphragmatic hernia without obstruction or gangrene; Z87.891 Personal history of nicotine dependence; Z98.1 Arthrodesis status; Z88.2 Allergy status to sulfonamides; Z91.048 Other nonmedicinal substance allergy status; Z83.3 Family history of diabetes mellitus; Z82.49 Family history of ischemic heart disease and other diseases of the circulatory system; Z84.89 Family history of other specified conditions; G89.4 Chronic pain syndrome; K66.0 Peritoneal adhesions (postprocedural) (postinfection); Z79.84 Long term (current) use of oral hypoglycemic drugs; M79.3 Panniculitis, unspecified; Z98.84 Bariatric surgery status
CPT/HCPCS: 36415; 74177; 80053; 81003; 82150; 83690; 85025; 93005; 96361; 96374; 96375; 96376; 99285

== ENCOUNTER → 2018-05-03 | Outpatient (CLI) | payer BC ==
--- NOTE | 2018-05-03 08:11 | P.PN ---
Subjective Progress Note Date: 05/03/18 DATE OF SERVICE: 05/03/2018 CHIEF COMPLAINT: Follow up bowel obstruction HISTORY OF PRESENT ILLNESS: Claire Nix is a 57-year-old female who is status post lysis of adhesions 04/21/2018 for small bowel obstruction. She is doing very well. No abdominal pain. She is eager to return to work. At her height of 5 feet 7-1/2 inches, her ideal body weight is 158 pounds. Her highest weight was 318 pounds. Today she comes in weighing 182 pounds from 188 pounds 2 months ago. She has lost another 6 pounds in 2 months. She has maintained 136 pound weight loss lifetime. Percent excess weight loss is 85 %. Body mass index is reduced from 49.2 down to 28.0. She is 24 pounds overweight. PHYSICAL EXAM: VITAL SIGNS: 5 feet 7-1/2 inches, 182 pounds. Body mass index of 28.1 Vital Signs Temp 97.7 F 05/03/18 09:14 Pulse 61 05/03/18 09:14 Resp BP 134/71 05/03/18 09:14 Pulse Ox ABDOMEN: Soft, nondistended. Incisions are clean dry and intact. GENERAL: Well-developed female in no acute distress. HEENT: No scleral icterus. Extraocular movements grossly intact. Moist buccal mucosa. NECK: Soft. No adenopathy. CHEST: Nonlabored respirations with equal bilateral excursions. CARDIOVASCULAR: Regular rate and rhythm. MUSCULOSKELETAL: No clubbing, cyanosis, or edema. NEURO: No focal or lateralizing signs. Cranial nerves II-12 grossly intact. PSYCH: Appropriate affect. Alert and oriented to person, place, and time. SKIN: Good skin turgor. Well perfused. ASSESSMENT: 1. Morbid obesity due to excess calories. 2. Body mass index reduced from 49.2 down to 28.1. 3 Status post gastric bypass. 4. History of small bowel obstruction 5. Massive weight loss, 136 pounds. PLAN: 1. She has weight lifting restrictions of no lifting over 10 pounds for 4 weeks from April 21 to May 19. 2. Return to work is pending recovery.
--- NOTE | 2018-05-03 08:14 | P.PN ---
Progress Note - Text Progress Note Date: 05/03/18 To whom it may concern: Claire Nix is under my surgical care. She may return on April 27 with weight lifting restrictions of no more than 10 pounds for 4 weeks from April 21 to May 19. She will be off restrictions after the above time frame. Regards, Roya Senior MD, FACS
--- NOTE | 2018-05-03 08:15 | P.PN ---
Progress Note - Text Progress Note Date: 05/03/18 To whom it may concern: Claire Nix is under my surgical care. She may return on May 22 with weight lifting restrictions of no more than 10 pounds for 4 weeks from April 21 to May 19. She will be off restrictions after the above time frame. Regards, Roya Senior MD, FACS
[2018-05-03 09:16] VITALS: BP 134/71; PULSE 61; TEMP 97.7; BMI 28.0
== END | disposition home or self-care (01) ==
LOC: BARWHC3 07:57
PROVIDERS: ATTEND Surgery Plastic and Reconstructive Surgery
DX: E66.01 Morbid (severe) obesity due to excess calories (principal); R63.4 Abnormal weight loss; Z98.84 Bariatric surgery status; Z87.19 Personal history of other diseases of the digestive system; Z68.28 Body mass index [BMI] 28.0-28.9, adult
CPT/HCPCS: 99211

== ENCOUNTER 2018-05-23 23:34 | Emergency (ER) | payer BC ==
[2018-05-24] MEDS ORDERED: HYDROcodone/APAP 5-325MG 1 EACH TAB ONE (00:28)
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
== END 2018-05-24 01:05 | disposition home or self-care (01) ==
LOC: EC 23:34
DX: S80.01XA Contusion of right knee, initial encounter (principal); S80.02XA Contusion of left knee, initial encounter; Z87.891 Personal history of nicotine dependence; Z88.2 Allergy status to sulfonamides; V28.0XXA Motorcycle driver injured in noncollision transport accident in nontraffic accident, initial encounter
CPT/HCPCS: 99283

== ENCOUNTER 2018-06-21 23:21 | Emergency (ER) | payer BC ==
[2018-06-22 00:08] VITALS: BP 151/88; PULSE 60; RESP 18; TEMP 98.7
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
--- NOTE | 2018-06-22 01:27 | XR ---
EXAMINATION TYPE: XR hand complete RT DATE OF EXAM: 06/22/2018 COMPARISON: NONE HISTORY: Pain TECHNIQUE: 3 views FINDINGS: Metacarpals appear intact. Joint spaces are fairly normal. I see no fracture nor dislocatio n. IMPRESSION: Negative right hand exam.
--- NOTE | 2018-06-22 01:28 | XR ---
EXAMINATION TYPE: XR wrist complete RT DATE OF EXAM: 06/22/2018 COMPARISON: NONE HISTORY: Wrist pain TECHNIQUE: 4 views FINDINGS: I see no fracture nor dislocation. Metacarpals are intact. Carpal bones are intact. Scaphoi d appears normal. Joint spaces are normal. IMPRESSION: Normal right wrist.
[2018-06-22] MEDS ORDERED: DIPH,PERTUS(ACELL)TETVAC-LF 0.5 ML VIAL IM ONE (02:29)
== END 2018-06-22 02:45 | disposition home or self-care (01) ==
LOC: EC 23:21
DX: S60.221A Contusion of right hand, initial encounter (principal); Z87.891 Personal history of nicotine dependence; Z98.1 Arthrodesis status; Z98.84 Bariatric surgery status; Z98.890 Other specified postprocedural states; Z88.2 Allergy status to sulfonamides; Z91.048 Other nonmedicinal substance allergy status; V18.4XXA Pedal cycle driver injured in noncollision transport accident in traffic accident, initial encounter; Y92.89 Other specified places as the place of occurrence of the external cause; Y93.55 Activity, bike riding
CPT/HCPCS: 99283

== ENCOUNTER 2018-08-12 12:38 | Emergency (ER) | payer BC ==
[2018-08-12] MEDS ORDERED: DIPH,PERTUS(ACELL)TETVAC-LF 0.5 ML VIAL IM ONE (13:03)
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
--- NOTE | 2018-08-12 13:39 | XR ---
EXAMINATION TYPE: XR chest 2V DATE OF EXAM: 08/12/2018 HISTORY: Chest Pain. REFERENCE: NONE. FINDINGS: There has been a previous ACDF in the lower cervical spine. The lungs are clear. Pleural spaces are clear. Heart size is within normal limits. IMPRESSION: NO ACUTE INTRATHORACIC ABNORMALITY.
--- NOTE | 2018-08-12 13:41 | XR ---
EXAMINATION TYPE: XR knee complete bilateral , 6 VIEWS DATE OF EXAM ORDERED: 08/12/2018 HISTORY: Pain. COMPARISON: Previous study dated 05/24/2018. FINDINGS: RIGHT KNEE: There is peaking of intercondylar spines. There is mild medial joint space loss. There is no fracture, dislocation or joint effusion. There are remodeling changes in the patellofemoral joint . LEFT KNEE: There is mild medial joint space loss. There is peaking of intercondylar spines. No fractu re, dislocation or joint effusion is seen. IMPRESSION: 1. NO ACUTE OSSEOUS LESION. 2. MILD CHANGES OF OSTEOARTHRITIS.
--- NOTE | 2018-08-12 13:44 | XR ---
EXAMINATION TYPE: XR hand complete LT , 3 VIEWS DATE OF EXAM ORDERED: 08/12/2018 HISTORY: Pain. COMPARISON: None. FINDINGS: No fracture, dislocation or other acute osseous lesion is seen. IMPRESSION: NORMAL LEFT HAND.
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
[2018-08-12] MEDS ORDERED: HYDROcodone/APAP 5-325MG 1 EACH TAB PO STA (14:45)
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
[2018-08-12 15:16] VITALS: BP 133/76; PULSE 59; RESP 18; TEMP 98.4
== END 2018-08-12 15:16 | disposition home or self-care (01) ==
LOC: EC 12:38
DX: S20.212A Contusion of left front wall of thorax, initial encounter (principal); S60.412A Abrasion of right middle finger, initial encounter; M25.561 Pain in right knee; M25.562 Pain in left knee; M19.90 Unspecified osteoarthritis, unspecified site; Z23 Encounter for immunization; Z87.891 Personal history of nicotine dependence; Z88.2 Allergy status to sulfonamides; Z91.048 Other nonmedicinal substance allergy status; V49.40XA Driver injured in collision with unspecified motor vehicles in traffic accident, initial encounter; Y92.410 Unspecified street and highway as the place of occurrence of the external cause
CPT/HCPCS: 71046; 90471; 90715; 93005; 99284

== ENCOUNTER → 2018-09-20 | Outpatient (CLI) | payer BC, OTHER ==
[2018-09-20 14:10] VITALS: BP 129/71; PULSE 61; TEMP 98.8; BMI 28.3
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
== END | disposition home or self-care (01) ==
LOC: BARWHC3 13:45
PROVIDERS: ATTEND Surgery Plastic and Reconstructive Surgery
DX: E66.01 Morbid (severe) obesity due to excess calories (principal); R10.12 Left upper quadrant pain; M79.3 Panniculitis, unspecified; Z98.84 Bariatric surgery status; Z87.19 Personal history of other diseases of the digestive system; Z68.28 Body mass index [BMI] 28.0-28.9, adult
CPT/HCPCS: 99211

== ENCOUNTER → 2018-10-04 | Outpatient (CLI) | payer BC ==
--- NOTE | 2018-10-04 15:29 | CT ---
EXAMINATION TYPE: CT abdomen pelvis w con DATE OF EXAM: 10/04/2018 COMPARISON: 04/20/2018 INDICATION: LLQ pain, hx bariatric surgery, bowel occlusion DLP: 1085.80 mGycm, Automated exposure control for dose reduction was used. CONTRAST: 100 mL of Isovue 300. Study performed with Oral Contrast TECHNIQUE: Axial images were obtained from above the diaphragm to the pubic rami in the axial plane a t 5 mm thick sections. Reconstructed images are reviewed on the computer in the coronal plane. FINDINGS: Limited CT sections are obtained the lung bases. The lung bases are clear. CT ABDOMEN: Post gastric sleeve changes are evident. Bowel surgery is in the left upper quadrant of t he abdomen. Liver: Normal Spleen: Normal Pancreas: Normal Adrenal glands: The adrenal glands are normal. Gallbladder: Normal Kidneys: No masses are evident. No hydronephrosis is present. There is a 1.8 cm cyst measuring 17 H [place] units along the anterior medial lower pole right kidney. Delayed images were obtained thro ugh the kidneys, which remain unremarkable. Aorta: Vascular calcification is within the aorta. Inferior vena cava: Normal. CT PELVIS: Loops of bowel within the abdomen and pelvis are normal. Study is performed without oral contrast limiting bowel evaluation. Appendix: Normal as visualized. Urinary bladder: Normal. Genitourinary structures: Uterus is unremarkable. Adnexal regions are clear. No significant free flui d is within the pelvis. Osseous structures: No suspicious lytic or sclerotic lesions. IMPRESSIONS: 1. No acute process CT abdomen or pelvis. 2. Postsurgical changes from gastric sleeve surgery. No obstruction on noncontrast images.
== END ==
LOC: RADCTMAIN 12:19
PROVIDERS: ATTEND Surgery Plastic and Reconstructive Surgery
DX: K57.32 Diverticulitis of large intestine without perforation or abscess without bleeding (principal); Z98.890 Other specified postprocedural states
CPT/HCPCS: 74177; Q9967

== ENCOUNTER → 2018-10-25 | Outpatient (CLI) | payer BC ==
[2018-10-25 13:29] VITALS: BP 122/81; PULSE 24; TEMP 98; BMI 28.3
--- NOTE | 2018-10-25 14:23 | P.PN ---
Subjective Progress Note Date: 10/25/18 HPI: She is having worse left upper quadrant pain in the last 1 month. She has family history of gallbladder disease. ABDOMEN: Focal pain at left upper qudrant. STUDIES: CT scan reviewed. PLAN: 1. US and HIDA scan of gallbladder 2. May need lysis of adhesions 3. Panniculectomy criteria met. Objective - Vital Signs Vital signs: Vital Signs Temp 98 F 10/25/18 13:26 Pulse 24 L 10/25/18 13:26 Resp BP 122/81 10/25/18 13:26 Pulse Ox Intake & Output 10/24/18 10/25/18 10/25/18 18:59 06:59 18:59 Weight 83.098 kg
== END | disposition home or self-care (01) ==
LOC: BARWHC3 13:07
PROVIDERS: ATTEND Surgery Plastic and Reconstructive Surgery
DX: R10.12 Left upper quadrant pain (principal)
CPT/HCPCS: 99211

== ENCOUNTER → 2018-11-09 | Outpatient (CLI) | payer BC ==
--- NOTE | 2018-11-09 09:28 | US ---
EXAMINATION TYPE: US gallbladder DATE OF EXAM: 11/09/2018 COMPARISON: CT 2018 CLINICAL HISTORY: R10.12 L Upper Quadrant Pain. Epigastric and LUQ pain x 1 month EXAM MEASUREMENTS: Liver Length: 18.2 cm Gallbladder Wall: 0.2 cm CBD: 0.4 cm Right Kidney: 13.0 x 4.8 x 5.7 cm Pancreas: visualized portions wnl, body and tail obscured by overlying midline bowel gas Liver: enlarged Gallbladder: borderline hydropic Evidence for sonographic Smith's sign: no CBD: wnl Right Kidney: measures large in size IMPRESSION: 1. Distention of the gallbladder without cholelithiasis or pericholecystic fluid.
--- NOTE | 2018-11-09 15:41 | NM ---
EXAMINATION TYPE: NM hepatobiliary w EF DATE OF EXAM: 11/09/2018 COMPARISON: NONE HISTORY: Pain TECHNIQUE: After the intravenous administration of 4.35 mCi Tc 99m Mebrofenin hepatobiliary scintigra phy is performed. Immediate images post injection. FINDINGS: There is satisfactory initial accumulation of tracer by the liver. The gallbladder is visualized wit hin 14 minutes. The small bowel activity is noted within 16 minutes. At one hour 8 ounces of oral e nsure plus is given to mimic CCK and gallbladder ejection fraction is calculated at 80 %, in the norm al range. Therefore there is no scintigraphic evidence of cystic or common bile duct obstruction to suggest acute cholecystitis or gallbladder dyskinesia. IMPRESSION: Exam is within normal limits.
== END | disposition home or self-care (01) ==
LOC: RADUSMAIN 08:37
PROVIDERS: ATTEND Surgery Plastic and Reconstructive Surgery
DX: K82.8 Other specified diseases of gallbladder (principal); R10.12 Left upper quadrant pain
CPT/HCPCS: 76705; 78226; A9537

== ENCOUNTER 2018-11-24 09:46 | Day surgery (SDC) | payer BC ==
[2018-11-23 09:30] VITALS: BMI 27.9
--- NOTE | 2018-11-24 07:52 | P.GSHP ---
History of Present Illness H&P Date: 11/24/18 CHIEF COMPLAINT: Cholecystitis HISTORY OF PRESENT ILLNESS: The patient is a 58-year-old female who presents with history of epigastric including right upper quadrant abdominal pain. She underwent diagnostic studies for her gallbladder. Separately her clinical picture was consistent with cholecystitis. Now she presents for surgical intervention. PAST MEDICAL HISTORY: Please see list PAST SURGICAL HISTORY: Please see list MEDICATIONS: Please see list ALLERGIES: Denies. SOCIAL HISTORY: No illicit drug use or recent tobacco use FAMILY HISTORY: Pertinent for gallbladder disease REVIEW OF ORGAN SYSTEMS: CONSTITUTIONAL: No reports of fevers or chills. HEENT: Denies any troubles with the vision or hearing. PHYSICAL EXAM: VITAL SIGNS: Afebrile vital signs stable GENERAL: Well-developed pleasant in no acute distress. HEENT: No scleral icterus. Extraocular movements grossly intact. Moist buccal mucosa. NECK: Supple without lymphadenopathy. CHEST: Unlabored respirations. Equal bilateral excursions. CARDIOVASCULAR: Regular rate regular rhythm rhythm. Distal 2+ pulses. ABDOMEN: Soft, nondistended. Tender along the epigastrium and right upper quadrant. MUSCULOSKELETAL: No clubbing, cyanosis, or edema. NEURO: Cranial nerves II to XII within normal limits. No focal or lateralizing signs. PSYCH: Alert and oriented to person, place and time. SKIN: Well-perfused good skin turgor. ASSESSMENT: 1. Epigastric and right upper quadrant abdominal pain 2. Chronic cholecystitis PLAN: 1. Will need a robotic cholecystectomy possible open. Benefits and risks were described. 2. Heparin for DVT prophylaxis 5000 units. 3. Antibiotic prophylaxis. Past Medical History Past Medical History: GERD/Reflux, Osteoarthritis (OA), Sleep Apnea/CPAP/BIPAP Additional Past Medical History / Comment(s): no longer using CPAP, History of Any Multi-Drug Resistant Organisms: None Reported Past Surgical History: Bariatric Surgery, Section, Orthopedic Surgery, Tonsillectomy Additional Past Surgical History / Comment(s): lap band placed/3 follow up surgeries then later removed, anterior cervical fusion , gastric bypass bowel obstruction surgical repair , ESOPHAGUS SURGERY , Past Anesthesia/Blood Transfusion Reactions: No Reported Reaction Smoking Status: Former smoker - Past Family History Father Family Medical History: No Reported History Mother Family Medical History: Pulmonary Embolus Medications and Allergies Home Medications Medication Instructions Recorded Confirmed Type Multivitamin [Multivitamins Adult 1 tab PO DAILY 08/12/18 11/23/18 History Gummies] Allergies Allergy/AdvReac Type Severity Reaction Status Date / Time Sulfa (Sulfonamide Allergy skin turns Verified 11/23/18 09:36 Antibiotics) red,lethargic environmental allergies Allergy Unknown Uncoded 11/23/18 09:36
[~2018-11-24 09:46] MED LIST changes: +ACETAMINOPHEN IV (For NPO) 1,000 MG in EMPTY BAG 1 BAG IVPB ONE; +DEXAMETHASONE SOD PHOSPHATE 10 MG/ML 1 ML VIAL IV ONE; +INDOCYANINE GREEN 25 MG VIAL IV STA; +MIDAZOLAM 2 MG/2 ML VIAL IV PRN; +ceFAZolin IN SWFI 2 GM/20 ML SYRINGE IVP ONE
[2018-11-24] MEDS ORDERED: ONDANSETRON 4 MG/2 ML VIAL IVP ONE (10:41)
[2018-11-24] MEDS ORDERED: HEPARIN SODIUM,PORCINE 5,000 UNIT/ML 1 ML VIAL SQ ONE (11:55)
[2018-11-24] MEDS ORDERED: NEOSTIGMINE 1 MG/ML 10 ML VIAL ONE (12:09)
[2018-11-24] MEDS ORDERED: MIDAZOLAM 2 MG/2 ML VIAL ONE (12:09)
[2018-11-24] MEDS ORDERED: LIDOCAINE 1% INJ 10MG/ML (20 ML MDV) ONE (12:09)
[2018-11-24] MEDS ORDERED: ROCURONIUM BROMIDE 10 MG/ML 10 ML VIAL IV ONE (12:09)
[2018-11-24] MEDS ORDERED: PROPOFOL 10 MG/ML 20 ML VIAL IV ONE (12:09)
[2018-11-24] MEDS ORDERED: SUCCINYLCHOLINE CHLORIDE 100 MG/5 ML SYR IV ONE (12:09)
[2018-11-24] MEDS ORDERED: GLYCOPYRROLATE 0.2 MG/ML 2 ML VIAL ONE (12:09)
[2018-11-24] MEDS ORDERED: fentaNYL (PF) 50 MCG/ML 2 ML AMP ONE (12:09)
[2018-11-24] MEDS ORDERED: INDOCYANINE GREEN 25 MG VIAL IV ONE (12:09)
[2018-11-24] MEDS ORDERED: BUPIVACAIN-EPI 0.25%-1:200,000 30 ML VIAL SQ ONE (12:43)
--- NOTE | 2018-11-24 13:35 | P.OP ---
Date of Procedure: 11/24/18 Description of Procedure: Date of Procedure: 11/24/18 SURGEON: ERNESTINE MINOR MD PREOPERATIVE DIAGNOSES: 1. Chronic cholecystitis 2. Left upper quadrant abdominal pain 3. History of peritoneal adhesions 4. History of gastric bypass 5. Gastroesophageal reflux disease 6. Status post massive weight loss over 120 pounds 7. Panniculitis POSTOPERATIVE DIAGNOSES: 1. Chronic cholecystitis 2. Left upper quadrant abdominal pain 3. History of peritoneal adhesions 4. History of gastric bypass 5. Gastroesophageal reflux disease 6. Status post massive weight loss over 120 pounds 7. Panniculitis 8. Fatty liver disease with hepatomegaly OPERATION: Robotic-assisted da Alley Xi laparoscopic cholecystectomy, multiport with FIREFLY Anesthesia: GETA, local Estimated Blood Loss (ml): 5 Pathology: other (gallbladder) Condition: stable Disposition: same day COMPLICATIONS: None. Operative Findings: 1. No intra-abdominal scar tissue 2. Features of gastric bypass without small bowel dilation or obstruction 3. Hepatomegaly INDICATIONS: The patient is a 58-year-old female who presents with cholelcystitis. Surgical intervention with a laparoscopic cholecystectomy was described at length including injury to the biliary tree, bleeding, infection, need for further surgery. Informed consent was obtained. Robotic assisted laparoscopic approach was described. Benefits and risks of the procedure including but not limited to bleeding, infection, injury to the biliary tree was described. Informed consent was obtained. DESCRIPTION OF PROCEDURE: Patient was brought to the operating room, placed in supine position. After general induction, the abdomen had been prepped and draped in standard sterile fashion. The robotic da Alley XI system was primed. After a timeout protocol was performed, the patient had been prepped and draped in standard sterile fashion. The patient was injected with indocyanine green. A 5 mm 0 degrees laparoscopic trocar entry was performed along the left upper quadrant. The abdomen insufflated to 15 mmHg pressure which was tolerated well. Diagnostic laparoscopy demonstrated no injury to bowel viscera or mesentery. No peritoneal lesions were identified. No small dilatation was found. The gastric pouch including Bobby limb was unremarkable. No recurrent peritoneal adhesions was found. The liver surface was remarkable for hepatomegaly. Next, two 8 mm robotic ports were placed along the right upper abdomen. The camera 8-mm port was maintained along the epigastrium. Another 8 mm port was placed along the left upper abdominal wall after exchanging the 5 mm port. Please note that the ports were placed at least 10 to 15 cm away from the target anatomy of the gallbladder. The robot was docked along the left lateral abdomen. The patient was repositioned in reverse Trendelenburg position. Using a grasper for arm 3, a grasper for arm 4, including hook cautery for arm 1 , the robotic system was docked and primed as described. Instruments were interchanged by the assistant statistician including hook cautery, Bovie cautery and clip appliers. I had sat at the console. The gallbladder fundus was retracted over the dome of the liver. Initial attention was brought to the infundibulum which was gently retracted in the inferior lateral approach. Using a grasper, the cystic duct including the cystic artery was carefully skeletonized. FIREFLY was used to identify the cystic artery and cystic structures. Large PLASTIC clips were used throughout the entire case. Using a clip biomass technician 2 clips were placed proximally, and 1 clip was placed distally along the cystic duct and then cauterized with the cautery. Again care was taken to avoid any injury to the biliary tree as the common bile duct was clearly visualized during this portion of dissection. Next, the cystic artery was similarly clipped and cauterized. Electro-Bovie cautery was used to remove the gallbladder from the hepatic fossa. Hemostasis was checked and found to be adequate. The robot was undocked. I re-scrubbed into the case. Using a 10 mm Endo Catch bag via the left upper quadrant incision, the specimen was removed from the abdominal cavity. All pneumoperitoneum instruments were evacuated from the abdominal cavity. The incisions were reapproximated using 4-0 Monocryl in an interrupted subcuticular fashion. Fascial defects were less than 8 mm in size. Please note along the trocar sites, local anesthetic was placed as a field block prior to insertion of all instruments. Liquid glue was applied to the skin. At the end of the procedure needle, sponge, and instrument count had been verified correct by the glass installer technician. The patient was transferred to postanesthesia care unit in stable condition. Intraoperative films were shared with the patient's family who were very pleased with the level of care.
[2018-11-24 13:41] VITALS: TEMP 97.7
[2018-11-24 13:47] VITALS: RESP 16
[2018-11-24] MEDS: fentaNYL (PF) 50 MCG/ML 2 ML AMP IV PRN ×3 (13:53→14:15)
[2018-11-24] MEDS ORDERED: SODIUM CHLORIDE 0.9% 1,000 ML IV ONE ×3 (14:04)
[2018-11-24 15:17] VITALS: BP 117/76; PULSE 76
== END 2018-11-24 15:32 | disposition home or self-care (01) ==
LOC: OR 09:46
PROVIDERS: ATTEND Surgery Plastic and Reconstructive Surgery
DX: K81.1 Chronic cholecystitis (principal); K21.9 Gastro-esophageal reflux disease without esophagitis; K76.0 Fatty (change of) liver, not elsewhere classified; Z90.49 Acquired absence of other specified parts of digestive tract; Z98.84 Bariatric surgery status; M19.90 Unspecified osteoarthritis, unspecified site; G47.33 Obstructive sleep apnea (adult) (pediatric); Z87.891 Personal history of nicotine dependence; Z88.1 Allergy status to other antibiotic agents; Z88.2 Allergy status to sulfonamides
CPT/HCPCS: 88304; 47562; J2250; J1644; J1100; J2710; J2405; J2001; J3010; J0131; J0330; J2704; J0690

== ENCOUNTER → 2018-12-22 | Outpatient (CLI) | payer BC ==
[2018-12-22 15:14] LABS: Basophils # (A) 0.1 k/uL (0-0.2); Basophils % (A) 1 %; Eosinophils # (A) 0.3 k/uL (0-0.7); Eosinophils % (A) 4 %; HGB 14.1 gm/dL (11.4-16.0); Lymphocytes # (A) 2.4 k/uL (1.0-4.8); Lymphocytes % (A) 34 %; MCH 30.3 pg (25.0-35.0); MCV 94.7 fL (80.0-100.0); Mean Platelet Volume 7.8; Monocytes # (A) 0.4 k/uL (0-1.0); Monocytes % (A) 5 %; Neutrophils # (A) 3.9 k/uL (1.3-7.7); Neutrophils % (A) 55 %; Platelet Count 211 k/uL (150-450); RBC 4.65 m/uL (3.80-5.40); WBC 7.2 k/uL (3.8-10.6)
[2018-12-22 15:23] LABS: ALT 78 U/L (9-52); AST 56 U/L (14-36); Albumin 4.3 g/dL (3.5-5.0); Alkaline Phosphatase 79 U/L (38-126); Anion Gap 7 mmol/L; Blood Urea Nitrogen 20 mg/dL (7-17); Calcium 9.6 mg/dL (8.4-10.2); Carbon Dioxide 27 mmol/L (22-30); Chloride 106 mmol/L (98-107); Glucose 146 mg/dL (74-99); Potassium 4.3 mmol/L (3.5-5.1); Sodium 140 mmol/L (137-145); Total Bilirubin 0.4 mg/dL (0.2-1.3); Total Protein 6.9 g/dL (6.3-8.2)
== END | disposition home or self-care (01) ==
LOC: LABPAT 14:42
PROVIDERS: ATTEND Surgery Plastic and Reconstructive Surgery
DX: Z01.812 Encounter for preprocedural laboratory examination (principal)
CPT/HCPCS: 36415; 80053; 85025

== ENCOUNTER 2018-12-28 10:20 | Inpatient (IN) | payer BC ==
--- NOTE | 2018-12-28 08:55 | P.GSHP ---
History of Present Illness H&P Date: 12/28/18 DATE OF SERVICE: 12/28/2018 CHIEF COMPLAINT: Panniculitis HISTORY OF PRESENT ILLNESS: Claire Nix is a 58-year-old female who is status post gastric bypass on 02/14/2017. She is almost 2 years out. She has trouble with severe panniculitis over 3 years despite medical treatment. At her height of 5 feet 7-1/2 inches, her ideal body weight is 158 pounds. Her highest weight was 318 pounds. Today she comes in weighing 179 pounds from 184 pounds, 3 months ago. She lost another 5 pounds in 3 months. She has maintained 139 pound weight loss lifetime. Percent excess weight loss is 87 %. Body mass index is reduced from 49.2 down to 27.2 PAST MEDICAL HISTORY: 1. Morbid obesity, BMI initial 49.2. 2. Diabetes type 2, noninsulin dependent, resolved 3. Panniculitis. 4. Obstructive sleep apnea, resolved 5. Osteoarthritis of the bilateral knees. 6. Osteoarthritis of the lower back. 7. Hypertension, resolved 8. Gastroesophageal reflux disease, resolved 9. Hiatal hernia. PAST SURGICAL HISTORY: 1. Adjustable gastric band with multiple revisions x3. 2. . 3. Tonsillectomy. 4. Colonoscopy one year ago. 5. Cervical fusion spinal surgery. 6. Status post gastric bypass. 7. Diagnostic laparoscopy. 8. Upper endoscopy with balloon dilatation. MEDICATIONS: 1. Carafate 2. MVI. ALLERGIES: None listed. SOCIAL HISTORY: Former tobacco use. FAMILY HISTORY: Pertinent for morbid obesity including diabetes and hypertensive heart disease. REVIEW OF SYSTEMS: CONSTITUTIONAL: At her height of 5 feet 7-1/2 inches, her ideal body weight is 158 pounds. Her highest weight was 318 pounds. MUSCULOSKELETAL: History of cervical fusion spinal surgery. Osteoarthritis moderately improved. ENDOCRINE: History of insulin-dependent diabetes type 2 resolved. No hypothyroidism. GASTROINTESTINAL: Has gastroesophageal reflux disease, now resolved. No dumping. HEENT: No active troubles with vision or hearing. No reports of dysphagia. RESPIRATORY: Has obstructive sleep apnea, now resolved. No recent pneumonia. Former tobacco user. CARDIOVASCULAR: No recent chest pain or heart attack or palpitations. NEURO: No reports of stroke or seizure disorders. PSYCH: No reports of active depression or suicidal ideation. No reports of anxiety. HEMATOLOGIC: No reports of easy bruising or bleeding. SKIN: Has chronic panniculitis over 3 years. No skin cancer. PHYSICAL EXAM: VITAL SIGNS: 5 feet 7-1/2 inches, 179 pounds. Body mass index of 27.6 ABDOMEN: Soft, nondistended. Pannus over 10 pounds. Pannus hangs over pubis 5.5 cm with hyperemia GENERAL: Well-developed female in no acute distress. HEENT: No scleral icterus. Extraocular movements grossly intact. Moist buccal mucosa. NECK: Soft. No adenopathy. CHEST: Nonlabored respirations with equal bilateral excursions. CARDIOVASCULAR: Regular rate and rhythm. MUSCULOSKELETAL: No clubbing, cyanosis, or edema. NEURO: No focal or lateralizing signs. Cranial nerves II-12 grossly intact. PSYCH: Appropriate affect. Alert and oriented to person, place, and time. SKIN: Good skin turgor. Well perfused. ASSESSMENT: 1. Morbid obesity due to excess calories. 2. Body mass index reduced from 49.2 down to 27.6 3 Status post gastric bypass. 4. Massive weight loss, 139 pounds. 5. Chronic panniculitis recalcitrant to medical therapy PLAN: 1. She presents with intermediate risk for complications for underlying history of bariatric surgery 2. Recommend panniculectomy as her weight is stable for over 6 months. 3. DVT prophylaxis 4. Antibiotic prophylaxis 5. Panniculectomy packet reviewed 6. Benefits and risks including bleeding, infection, failure of skin flaps, need for further surgery, cosmetic deformity described including placement of drains and seroma formation 7. Inpatient hospital overnight for pain control Past Medical History Past Medical History: GERD/Reflux, Osteoarthritis (OA), Sleep Apnea/CPAP/BIPAP Additional Past Medical History / Comment(s): no longer using CPAP. History of Any Multi-Drug Resistant Organisms: None Reported Past Surgical History: Bariatric Surgery, Section, Cholecystectomy, Orthopedic Surgery, Tonsillectomy Additional Past Surgical History / Comment(s): lap band placed/3 follow up surgeries then later removed, anterior cervical fusion , gastric bypass bowel obstruction surgical repair , ESOPHAGUS SURGERY , Past Anesthesia/Blood Transfusion Reactions: No Reported Reaction Past Psychological History: No Psychological Hx Reported Smoking Status: Former smoker Past Alcohol Use History: Rare Additional Past Alcohol Use History / Comment(s): 1 PPD STARTED SMOKING AT AGE 18 QUIT IN 02/20/2000 SMOKED 1 - 1 2 PPD Past Drug Use History: None Reported - Past Family History Father Family Medical History: No Reported History Mother Family Medical History: Pulmonary Embolus Medications and Allergies Home Medications Medication Instructions Recorded Confirmed Type Multivitamin [Multivitamins Adult 1 tab PO DAILY 08/12/18 12/22/18 History Gummies] Allergies Allergy/AdvReac Type Severity Reaction Status Date / Time Sulfa (Sulfonamide Allergy skin turns Verified 12/22/18 13:12 Antibiotics) red,lethargic environmental allergies Allergy Unknown Uncoded 12/22/18 13:12
[~2018-12-28 10:20] MED LIST changes: -ACETAMINOPHEN IV (For NPO) 1,000 MG in EMPTY BAG 1 BAG IVPB ONE; +HEPARIN SODIUM,PORCINE 5,000 UNIT/ML 1 ML VIAL SQ ONE; -INDOCYANINE GREEN 25 MG VIAL IV STA; -LACTATED RINGERS 1,000 ML IV SCH; +MIDAZOLAM (PF) 2 MG/2 ML VIAL IV PRN; -MIDAZOLAM 2 MG/2 ML VIAL IV PRN; +ONDANSETRON 4 MG/2 ML VIAL IVP ONE; +fentaNYL (PF) 50 MCG/ML 2 ML AMP IV PRN
[2018-12-28] MEDS: LACTATED RINGERS 1,000 ML IV SCH ×2 (11:26→20:57)
[2018-12-28] MEDS ORDERED: NEOSTIGMINE 1 MG/ML 10 ML VIAL ONE (14:00)
[2018-12-28] MEDS ORDERED: ROCURONIUM BROMIDE 10 MG/ML 10 ML VIAL IV ONE (14:00)
[2018-12-28] MEDS ORDERED: SUCCINYLCHOLINE CHLORIDE 100 MG/5 ML SYR IV ONE (14:00)
[2018-12-28] MEDS ORDERED: LIDOCAINE 1% INJ 10MG/ML (20 ML MDV) ONE (14:00)
[2018-12-28] MEDS ORDERED: PROPOFOL 10 MG/ML 20 ML VIAL IV ONE (14:00)
[2018-12-28] MEDS ORDERED: fentaNYL (PF) 50 MCG/ML 2 ML AMP ONE (14:00)
[2018-12-28] MEDS ORDERED: MIDAZOLAM 2 MG/2 ML VIAL ONE (14:00)
[2018-12-28] MEDS ORDERED: GLYCOPYRROLATE 0.2 MG/ML 2 ML VIAL ONE (14:00)
[2018-12-28] MEDS ORDERED: LACTATED RINGERS 1,000 ML IV ONE ×2 (14:55→16:32)
[2018-12-28] MEDS ORDERED: HYDROmorphone 1 MG/ML 1 ML SYRINGE IVP PRN (16:50)
[2018-12-28] MEDS ORDERED: NALOXONE 0.4 MG/ML 1 ML VIAL IV PRN (16:50)
[2018-12-28] MEDS ORDERED: ONDANSETRON 4 MG/2 ML VIAL IVP PRN (16:50)
--- NOTE | 2018-12-28 16:57 | P.OP ---
Date of Procedure: 12/28/18 Description of Procedure: SURGEON: ERNESTINE MINOR MD PREOPERATIVE DIAGNOSES: 1. Morbid obesity due to excess calories. 2. Body mass index reduced from 49.2 down to 27.6 3 Status post gastric bypass. 4. Massive weight loss, 139 pounds. 5. Chronic panniculitis recalcitrant to medical therapy POSTOPERATIVE DIAGNOSES: 1. Morbid obesity due to excess calories. 2. Body mass index reduced from 49.2 down to 27.6 3 Status post gastric bypass. 4. Massive weight loss, 139 pounds. 5. Chronic panniculitis recalcitrant to medical therapy 6. Ventral hernia, 13 x 24 cm, initial and reducible. OPERATION: 1. Panniculectomy, 6.74 pounds. 2. Primary repair of ventral hernia 13 x 24 cm without mesh. ANESTHESIA: General ESTIMATED BLOOD LOSS: 100 mL SPECIMENS REMOVED: Pannus 6.74 pounds. COMPLICATIONS: None. CONDITION: Stable. DRAINS: Two #19 Alejo drains below abdominal flap extending through the pubis. OPERATIVE FINDINGS: 1. Pannus weighing 6.74 pounds, excised. 2. Abdominal ventral hernia of 13 x 24 cm along the midline repaired primarily using fascial imbrication. INDICATIONS: Claire Nix is a 58-year-old female who is status post gastric bypass on 02/14/2017. She is almost 2 years out. She has trouble with severe panniculitis over 3 years despite medical treatment. At her height of 5 feet 7- 1/2 inches, her ideal body weight is 158 pounds. Her highest weight was 318 pounds. Today she comes in weighing 179 pounds from 184 pounds, 3 months ago. She lost another 5 pounds in 3 months. She has maintained 139 pound weight loss lifetime. Percent excess weight loss is 87 %. Body mass index is reduced from 49.2 down to 27.2. She presents for a panniculectomy. Benefits and risks of the procedure including bleeding, infection, cosmetic deformity, abdominal seromas, placement of drains, risk of flap failure were described at length. Informed consent was obtained. DESCRIPTION: In the preanesthesia care unit the patient was marked with an indelible marker. She had also been given heparin subcutaneously. The patient was brought into the operating room and laid in supine position. After general induction, a Fontaine catheter was placed. The abdomen was then prepped and draped in standard sterile fashion using ChloraPrep. The skin was prepped as far laterally to the back, inferiorly to the upper thighs and superiorly to above the bilateral breasts. A timeout protocol was confirmed with the surgical team regarding patient's name , procedure to be performed, including preoperative medications. She had received Ancef 2 grams IV antibiotics. Once the time-out protocol was confirmed with the surgical team, the patient was re-marked with indelible marker whereby the midline of the xiphoid to the mons pubis was marked. The anterior/superior iliac spine along the bilateral hips was also marked. At 8 cm above the pubis commissure a transverse incision was made for the inferior portion of the flap. Using a #10 blade, the incision was taken from the midline laterally to above the anterior/superior iliac spine, initially on the left side of the patient and then on the right side of the patient. Electro-Bovie cautery was used to control for hemostasis. The dissection was taken down to the level of the fascia. Landmarks used were the xiphoid process as well as the bilateral costal margins for the superior margin. Care was taken to avoid any creation of dog ears during the dissection. Once hemostasis was checked, a large ventral hernia fascial defect of 13 x 24 cm was identified unrelated to her bariatric procedure. During this dissection , the umbilicus was truncated at its fascial insertion. The umbilicus fascial excision was oversewn using 0-Vicryl. Starting from the xiphoid process, fascial imbrication was performed using #2 Ethibond. Multiple facial imbrications at least 3 layers were performed. The ventral hernia defect was completely repaired and closed. Hemostasis was once again checked with electro-Bovie cautery and all defects were addressed. Attention was now brought to closure of the flap. Using stainless steel skin cristine, the midline was once again marked of the upper flap as well as the pubic commissure. The patient was placed in a flexed position of approximately 30 degrees at the hips. The pannus was extended inferiorly to the feet. The upper flap was created once the excess skin was excised. Again care was taken to avoid any dog ears along the lateral aspect of the incisions. Once excised, the pannus was weighed at 6.74 pounds. The upper and lower flaps were reapproximated at the midline and then laterally to the skin with skin cristine. Once reapproximated, the skin was closed in layers using 0 Vicryl for the superficial fascial system followed by running 3- 0 Monocryl for the deep dermis in a running subcuticular fashion. Prior to skin closure, two round #19 Alejo drains were placed underneath the flap and brought out just inferior to the incision along the pubis. Drain stitch using 2-0 nylon was placed. Once the incision was closed, bulb suction was attached. Hemostasis was checked. At the end of the procedure, the needle, sponge and instrument count was verified correct. The skin was cleansed with hydrogen peroxide. Exofin tape including adhesive was placed along the length of the incision. Optifoam dressing was also placed over the incision and over the CJ sites. The patient was then transferred to a hospital bed in a beach chair position. An abdominal binder was placed and marked. The patient was taken to the postanesthesia care unit in stable condition, awake and extubated.
[2018-12-28] MEDS: HYDROmorphone 0.5 MG/0.5 ML SYRINGE IVP PRN ×2 (17:06→17:13)
[2018-12-28 17:39] LABS: Glucose,Whole Blood 139 mg/dL (75-99)
[2018-12-28] MEDS: HYDROcodone/APAP 7.5-325MG 1 EACH TAB PO SCH (19:04)
[2018-12-28] MEDS: D5-0.45% NACL WITH KCL 20MEQ/L 1,000 ML IV SCH (20:55)
[2018-12-28] MEDS: ceFAZolin IN SWFI 2 GM/20 ML SYRINGE IVP SCH (20:57)
[2018-12-28] MEDS: diphenhydrAMINE 50 MG/ML 1 ML VIAL IVP PRN (20:58)
[2018-12-29] MEDS: HYDROcodone/APAP 7.5-325MG 1 EACH TAB PO SCH ×3 (00:14→12:37)
[2018-12-29] MEDS: diphenhydrAMINE 50 MG/ML 1 ML VIAL IVP PRN (03:30)
[2018-12-29] MEDS: D5-0.45% NACL WITH KCL 20MEQ/L 1,000 ML IV SCH ×2 (03:30→10:15)
[2018-12-29] MEDS: ceFAZolin IN SWFI 2 GM/20 ML SYRINGE IVP SCH (05:50)
[2018-12-29 07:32] VITALS: BP 107/58; PULSE 88; RESP 17; TEMP 97.5
[2018-12-29] MEDS ORDERED: ENOXAPARIN 40 MG/0.4 ML SYRINGE SQ SCH (09:00)
--- NOTE | 2018-12-29 11:39 | P.DS ---
Providers Date of admission: 12/28/18 10:20 Expected date of discharge: 12/29/18 Attending physician: Roya Senior Primary care physician: Jesus Cee - Discharge Diagnosis(es) (1) Panniculitis Current Visit: Yes Status: Acute (2) Morbid obesity Current Visit: No Status: Acute (3) Status post gastric bypass for obesity Current Visit: No Status: Acute Hospital Course: 58-year-old female who underwent panniculectomy secondary to severe panniculitis despite medical treatment. Patient has history of gastric bypass in February 2017 and his last 139 pounds. The patient has done well postoperatively without any immediate complications. Her pain is tolerable. She is tolerating oral intake. Denies nausea or vomiting. She has been ambulating in the hallway. She is stable for discharge home today. CJ drain educated was provided prior to patient discharge. Please see EMR for further hospital course details. DISCHARGE DIAGNOSIS: 1. Morbid obesity due to excess calories. 2. Body mass index reduced from 49.2 down to 27.6 3 Status post gastric bypass. 4. Massive weight loss, 139 pounds. 5. Chronic panniculitis recalcitrant to medical therapy 6. Ventral hernia, 13 x 24 cm, initial and reducible. Nurse practitioner note has been reviewed by physician. Signing provider agrees with the documented findings, assessment, and plan of care. Plan - Discharge Summary Discharge Rx Participant: Yes New Discharge Prescriptions: New HYDROcodone/APAP 7.5-325MG [[place] 7.5-325] 1 tab PO Q4H PRN 3 Days #18 tab PRN Reason: Pain Docusate [Colace] 100 mg PO BID #30 capsule Continue Multivitamin [Multivitamins Adult Gummies] 1 tab PO DAILY Discharge Medication List Multivitamin [Multivitamins Adult Gummies] 1 tab PO DAILY 08/12/18 [History] Docusate [Colace] 100 mg PO BID #30 capsule 12/29/18 [Rx] HYDROcodone/APAP 7.5-325MG [[place] 7.5-325] 1 tab PO Q4H PRN 3 Days #18 tab 12/29 [Rx] Follow up Appointment(s)/Referral(s): Roya Senior MD [STAFF PHYSICIAN] - 1 Week Activity/Diet/Wound Care/Special Instructions: NO lifting over 4 pounds in 4 weeks. No shower. No bathtub soaks. Record CJ drain output daily and strip drains to prevent clogging. Sleep with head of bed up at 30 to 45 degrees. Walk with hips flexed to prevent tear of your incision. Dressings to be removed by your doctor in the office. EAT 75 G PROTEIN DAILY FOR OPTIMAL RECOVERY Discharge Disposition: HOME SELF-CARE
== END 2018-12-29 15:16 | disposition home or self-care (01) | DRG 989 ==
LOC: 2ORMAIN 10:20 → 4SSUR 16:51
PROVIDERS: ADMIT Surgery Plastic and Reconstructive Surgery; ATTEND Surgery Plastic and Reconstructive Surgery
PROC: 0HB7XZZ Excision of Abdomen Skin, External Approach (ICD-10-PCS; principal; 2018-12-28 12:15)
PROC: 0WQF0ZZ Repair Abdominal Wall, Open Approach (ICD-10-PCS; 2018-12-28 12:15)
DX: M79.3 Panniculitis, unspecified (principal); E66.01 Morbid (severe) obesity due to excess calories; K43.9 Ventral hernia without obstruction or gangrene; K21.9 Gastro-esophageal reflux disease without esophagitis; M17.0 Bilateral primary osteoarthritis of knee; K44.9 Diaphragmatic hernia without obstruction or gangrene; M47.9 Spondylosis, unspecified; Z98.84 Bariatric surgery status; Z87.891 Personal history of nicotine dependence; Z68.27 Body mass index [BMI] 27.0-27.9, adult; Z98.1 Arthrodesis status; Z90.49 Acquired absence of other specified parts of digestive tract; Z88.2 Allergy status to sulfonamides; Z82.49 Family history of ischemic heart disease and other diseases of the circulatory system; Z83.3 Family history of diabetes mellitus
CPT/HCPCS: 94760; 94762

== ENCOUNTER → 2019-01-01 | Outpatient (CLI) | payer BC ==
[2019-01-01 10:11] VITALS: BP 127/84; PULSE 68; TEMP 97.6; BMI 27.0
--- NOTE | 2019-01-03 17:18 | P.PN ---
Subjective Progress Note Date: 01/01/19 Pain is controlled. Patient to moderate complaints hospitalization. Otherwise dressings changed. No cellulitis or infection. Patient told to avoid all NSAIDs with a history of gastric bypass. Pain is controlled. Objective - Vital Signs Vital signs: Vital Signs Temp 97.6 F 01/01/19 10:02 Pulse 68 01/01/19 10:02 Resp BP 127/84 01/01/19 10:02 Pulse Ox
== END | disposition home or self-care (01) ==
LOC: BARWHC3 09:07
PROVIDERS: ATTEND Surgery Plastic and Reconstructive Surgery
DX: Z09 Encounter for follow-up examination after completed treatment for conditions other than malignant neoplasm (principal); Z98.84 Bariatric surgery status
CPT/HCPCS: 99212

== ENCOUNTER → 2019-01-15 | Outpatient (CLI) | payer BC ==
[2019-01-15 13:42] VITALS: BP 134/71; PULSE 61; TEMP 97.9; BMI 27.8
--- NOTE | 2019-01-16 20:16 | P.PN ---
Subjective Progress Note Date: 01/15/19 She reports discomfort from the drain stitches. No fevers or chills. She has moderate swelling of the genitalia. CJ is still serosanguinous with outputs not recorded. Outputs per description under 75 mL bilateral. ABDOMEN: External tape discontinued. CJ drains stripped bilaterally. No cellulitis or infection. Abdominal binder repositioned over hips. Genitalia swelling improved after stripping of drain. ASSESSMENT: 1. Status post panniculectomy PLAN: 1. Record bilateral drainage of JPs. 2. Drain may be removed with outputs less than 10 to 20 mL daily 3. All incisions are drains cleansed with chloroprep. 4. Patient clearly described risks of seroma development with premature removal of CJ drains. Objective - Vital Signs Vital signs: Vital Signs Temp 97.9 F 01/15/19 13:34 Pulse 61 01/15/19 13:34 Resp BP 134/71 01/15/19 13:34 Pulse Ox
== END ==
LOC: BARWHC3 09:59
PROVIDERS: ATTEND Surgery Plastic and Reconstructive Surgery
DX: Z48.817 Encounter for surgical aftercare following surgery on the skin and subcutaneous tissue (principal); L76.82 Other postprocedural complications of skin and subcutaneous tissue; Z98.890 Other specified postprocedural states
CPT/HCPCS: 99212

== ENCOUNTER → 2019-01-17 | Outpatient (CLI) | payer BC ==
[2019-01-17 12:21] VITALS: BP 117/79; PULSE 63; TEMP 98.1; BMI 28.4
--- NOTE | 2019-01-17 12:41 | P.PN ---
Subjective Progress Note Date: 01/17/19 DATE OF SERVICE: 01/17/2019 CHIEF COMPLAINT: Panniculitis HISTORY OF PRESENT ILLNESS: Claire Nix is a 58-year-old female who is status post panniculectomy with excision of 7 pounds of skin on 12/28/2018. She is over 2.5 weeks post. Drains are under 20 mL daily. Left of 10 mL and right of 15 to 20 mL. No fevers or chills. At her height of 5 feet 7-1/2 inches, her ideal body weight is 158 pounds. Her highest weight was 318 pounds. Today she comes in weighing 179 pounds from 176 pounds, over 2 weeks ago. She has gained 3 pound in 2 days. She has maintained 139 pound weight loss lifetime. Percent excess weight loss is 87 %. Body mass index is reduced from 49.2 down to 27.6 PHYSICAL EXAM: VITAL SIGNS: 5 feet 7-1/2 inches, 17 pounds. Body mass index of 27.6 ABDOMEN: CJ drains stripped bilaterally. No cellulitis or infection. GENERAL: Well-developed and in no acute distress. HEENT: No scleral icterus. Extraocular movements grossly intact. Moist buccal mucosa. NECK: Soft. No adenopathy. CHEST: Nonlabored respirations with equal bilateral excursions. CARDIOVASCULAR: Regular rate and rhythm. MUSCULOSKELETAL: No clubbing, cyanosis, or edema. NEURO: No focal or lateralizing signs. Cranial nerves II-12 grossly intact. PSYCH: Appropriate affect. Alert and oriented to person, place, and time. SKIN: Good skin turgor. Well perfused. ASSESSMENT: 1. Status post panniculectomy for panniculitis. 2. Body mass index reduced from 49.2 down to 27.6 3 Status post gastric bypass. 4. Massive weight loss, 139 pounds. PLAN: 1. Both CJ drains removed. 2. Skin cleansed and dressing placed. 3. Nurse visit in 1 week. 4. Measure of waist line weekly. 5. Keep binder on at all times. 6. Dressing removal on Tuesday, 2 to 3 days. Objective - Vital Signs Vital signs: Vital Signs Temp 98.1 F 01/17/19 12:17 Pulse 63 01/17/19 12:17 Resp BP 117/79 01/17/19 12:17 Pulse Ox Intake & Output 01/16/19 01/17/19 01/17/19 18:59 06:59 18:59 Weight 81.193 kg
== END ==
LOC: BARWHC3 11:57
PROVIDERS: ATTEND Surgery Plastic and Reconstructive Surgery
DX: Z48.817 Encounter for surgical aftercare following surgery on the skin and subcutaneous tissue (principal); R63.4 Abnormal weight loss; Z98.84 Bariatric surgery status; Z68.27 Body mass index [BMI] 27.0-27.9, adult; Z98.890 Other specified postprocedural states
CPT/HCPCS: 99212

== ENCOUNTER → 2019-01-31 | Outpatient (CLI) | payer BC ==
--- NOTE | 2019-01-31 13:39 | P.PN ---
Subjective Progress Note Date: 01/31/19 HPI: She is 2 weeks out from the CJ drain as removed. She reports mild serous drainage along the pubis and side incisions. No fevers, chills, or redness. She is wearing her abdominal binder art all times. ABDOMEN: No celluliits or infection. Minimal seroma along the pubis. ASSESSMENT: 1. Panniculitis PLAN: 1. Change binder to wear at all times. 2. Continue with wound care.
[2019-02-01 09:37] VITALS: BP 136/90; PULSE 72; TEMP 98.2; BMI 27.4
== END | disposition home or self-care (01) ==
LOC: BARWHC3 13:02
PROVIDERS: ATTEND Surgery Plastic and Reconstructive Surgery
DX: M79.3 Panniculitis, unspecified (principal)
CPT/HCPCS: 99212

== ENCOUNTER → 2019-03-15 | Outpatient (CLI) | payer BC ==
[2019-03-15 16:25] LABS: ALT 44 U/L (8-44); AST 37 U/L (13-35); Albumin/Globulin Ratio 2.44 (1.60-3.17); Alkaline Phosphatase 99 U/L (41-126); Bilirubin, Conjugated <0.20 mg/dL (0.20-0.40); Cholesterol 159 mg/dL (0-200); Globulin 1.8 g/dL (1.6-3.3); LDL Cholesterol,Calculated 77.4 mg/dL (0.0-131.0); Total Bilirubin 0.4 mg/dL (0.3-1.2); Total Protein 6.2 g/dL (6.2-8.2)
== END | disposition home or self-care (01) ==
LOC: LABWHC1 08:09
PROVIDERS: ATTEND Family Medicine
DX: Z00.00 Encounter for general adult medical examination without abnormal findings (principal); I10 Essential (primary) hypertension
CPT/HCPCS: 36415; 80061; 80076; 84439; 84443

== ENCOUNTER → 2019-03-20 | Outpatient (CLI) | payer BC ==
--- NOTE | 2019-03-21 11:27 | MM ---
Reason for exam: screening (asymptomatic). Last mammogram was performed 3 years and 9 months ago. History: Patient is postmenopausal. Physical Findings: A clinical breast exam by your physician is recommended on an annual basis and results should be correlated with mammographic findings. MG Screening Mammo w CAD Bilateral CC and MLO view(s) were taken. Prior study comparison: June 24, 2015, bilateral MG screening mammo w CAD. There are scattered fibroglandular densities. Bilateral mole markers. Breast size has decreased and breast density has increased likely due to weight loss from 2015. No significant mass, calcifications or other abnormality is seen. ASSESSMENT: Negative, BI-RAD 1 RECOMMENDATION: Routine screening mammogram of both breasts in 1 year.
== END ==
LOC: RADMAMWWP 15:42
PROVIDERS: ATTEND Family Medicine
DX: Z12.31 Encounter for screening mammogram for malignant neoplasm of breast (principal)
CPT/HCPCS: 77067

== ENCOUNTER → 2019-07-02 | Outpatient (CLI) | payer BC ==
--- NOTE | 2019-07-02 19:07 | XR ---
EXAMINATION TYPE: XR tibia fibula LT 2 views, XR ankle limited LT 2 views DATE OF EXAM: 07/02/2019 COMPARISON: NONE HISTORY: 58-year-old female contusion by a trailer hitch, pain FINDINGS: Tibia/fibula: Degenerative spurring within the patellofemoral compartment of the knee. No acute fracture is seen. S ome mild pretibial soft tissue swelling noted along the proximal third leg. Ankle: Bony irregularity at the medial malleolus. Ankle mortise otherwise congruent. Some mild bony spurring along the dorsal aspect of the proximal navicular. Moderate-sized plantar calcaneal spur. Small deli neation to the Achilles tendon. No acute fracture or dislocation. IMPRESSION: 1. Tibia/fibula: Mild pretibial soft tissue swelling along the upper third leg. No underlying acute o sseous abnormality seen. 2. Left ankle: Spurring along the inferior aspect of the medial malleolus probably sequela of remote injury. Moderate-sized plantar calcaneal spur. No acute osseous abnormality seen.
== END | disposition home or self-care (01) ==
LOC: RADXRMAIN 14:06
PROVIDERS: ATTEND Family Medicine
DX: M79.89 Other specified soft tissue disorders (principal); M77.32 Calcaneal spur, left foot; M79.605 Pain in left leg

== ENCOUNTER → 2020-05-27 | Outpatient (CLI) | payer OTHER ==
--- NOTE | 2020-05-27 11:38 | CT ---
EXAMINATION TYPE: CT foot RT wo con DATE OF EXAM: 05/27/2020 COMPARISON: None HISTORY: foot runover by cart CT DLP: 165.2 mGycm Automated exposure control for dose reduction was used. TECHNIQUE: Multiplanar contiguous and reformatted images of the right foot were obtained. 3-D images were generated and utilized. FINDINGS: No evidence of fracture or dislocation. There is normal alignment. Mild degenerative changes of the m idfoot. Plantar and Achilles enthesophytes. No significant focal soft tissue swelling. Three-dimensio nal images are consistent with the above findings. IMPRESSION: NO FRACTURE OR DISLOCATION OF THE RIGHT FOOT.
== END ==
LOC: RADCTMAIN 07:20
PROVIDERS: ATTEND Pediatrics
DX: S90.31XA Contusion of right foot, initial encounter (principal)

== ENCOUNTER → 2020-07-08 | Outpatient (CLI) | payer OTHER ==
--- NOTE | 2020-07-10 03:29 | MR ---
EXAMINATION TYPE: MR foot RT wo con DATE OF EXAM: 07/08/2020 COMPARISON: None HISTORY: Rt foot injury/contusion January 2020 Multiplanar multiecho imaging of the right foot was performed without contrast. There is slight increased superficial signal on the STIR images in the forefoot consistent with subcu taneous edema. The metatarsals appear intact. I see no focal bone destruction. There is mild plantar and Achilles calcaneal spur formation. The Achilles tendon is intact. The medial and lateral flexor t endons of the foot appear intact. Ankle mortise is anatomic. The collateral ligaments appear intact. There is mild increased fluid around the medial flexor tendons of the foot. The tarsal bones are inta ct. Intertarsal joint spaces are normal. Plantar fascia appears normal. IMPRESSION: Mild soft tissue swelling and subcutaneous edema of the forefoot that is more noticeable around the f ourth MP joint. No fracture seen. Mild increased fluid around the flexor pollicis tendon suggestive of some mild nonspecific tenosynovi tis.
== END | disposition home or self-care (01) ==
LOC: RADMRIMAIN 17:13
PROVIDERS: ATTEND Orthopaedic Surgery Sports Medicine
DX: M79.89 Other specified soft tissue disorders (principal); R60.9 Edema, unspecified

== ENCOUNTER → 2021-04-10 | Outpatient (CLI) | payer OTHER ==
--- NOTE | 2021-04-11 04:01 | MR ---
EXAMINATION TYPE: MR foot RT wo con DATE OF EXAM: 04/10/2021 COMPARISON: None HISTORY: R foot contusion, trauma to foot, Mid-foot pain/swelling Multiplanar multiecho imaging of the right foot was performed without contrast. The metatarsals appear intact. The joint spaces of the toes appear fairly normal. There is no subluxa tion. There is some minimal increased signal around the MP joints consistent with edema. The tarsal b ones appear intact. There is plantar calcaneal spurring. Achilles tendon appears intact. IMPRESSION: Exam fails to show a fracture. There is mild increased fluid signal around the MP joints consistent w ith some bruising and edema..
== END | disposition home or self-care (01) ==
LOC: RADMRIMAIN 07:47
PROVIDERS: ATTEND Orthopaedic Surgery
DX: S90.31XA Contusion of right foot, initial encounter (principal); X58.XXXA Exposure to other specified factors, initial encounter

== ENCOUNTER → 2021-11-26 | Outpatient (CLI) | payer BC ==
--- NOTE | 2021-11-30 11:40 | MM ---
Reason for exam: screening (asymptomatic). Last mammogram was performed 2 years and 8 months ago. History: Patient is postmenopausal. Physical Findings: A clinical breast exam by your physician is recommended on an annual basis and results should be correlated with mammographic findings. MG Screening Mammo w CAD Bilateral CC and MLO view(s) were taken. Prior study comparison: March 20, 2019, bilateral MG screening mammo w CAD. June 24, 2015, bilateral MG screening mammo w CAD. There are scattered fibroglandular densities. Stable mole on the right. No significant changes when compared with prior studies. ASSESSMENT: Benign, BI-RAD 2 RECOMMENDATION: Routine screening mammogram of both breasts in 1 year.
== END | disposition home or self-care (01) ==
LOC: RADMAMWWP 07:35
PROVIDERS: ATTEND Family Medicine
DX: Z12.31 Encounter for screening mammogram for malignant neoplasm of breast (principal); Z78.0 Asymptomatic menopausal state
CPT/HCPCS: 77067

== ENCOUNTER → 2022-01-04 | Outpatient (CLI) | payer BC ==
[2022-01-05 13:07] LABS: Coronavirus SARS CoV-2 Not Detected (Not Detected)
== END | disposition home or self-care (01) ==
LOC: LABPAT 15:21
PROVIDERS: ATTEND Surgery Plastic and Reconstructive Surgery
DX: Z01.812 Encounter for preprocedural laboratory examination (principal); Z20.822 Contact with and (suspected) exposure to COVID-19
CPT/HCPCS: U0003; C9803

== ENCOUNTER 2022-01-07 06:44 | Day surgery (SDC) | payer BC ==
[2022-01-04 14:50] VITALS: BMI 33.4
[~2022-01-07 06:44] MED LIST changes: -DEXAMETHASONE SOD PHOSPHATE 10 MG/ML 1 ML VIAL IV ONE; -HEPARIN SODIUM,PORCINE 5,000 UNIT/ML 1 ML VIAL SQ ONE; +LACTATED RINGERS 1,000 ML IV SCH; -LIDOCAINE 1% 20 ML VIAL (10MG/ML) FOR IV START INTRADERMA PRN; -MIDAZOLAM (PF) 2 MG/2 ML VIAL IV PRN; -ONDANSETRON 4 MG/2 ML VIAL IVP ONE; -ceFAZolin IN SWFI 2 GM/20 ML SYRINGE IVP ONE; -fentaNYL (PF) 50 MCG/ML 2 ML AMP IV PRN
[2022-01-07 07:27] VITALS: TEMP 97.8
--- NOTE | 2022-01-07 07:31 | P.GSHP ---
History of Present Illness H&P Date: 01/07/22 CHIEF COMPLAINT: Colon screen HISTORY OF PRESENT ILLNESS: The patient is a 61-year-old female who presents for colon screen. Lower endoscopy was offered for further evaluation and management. PAST MEDICAL HISTORY: Please see list. PAST SURGICAL HISTORY: Please see list. MEDICATIONS: Please see list. ALLERGIES: Please see list. SOCIAL HISTORY: No illicit drug use FAMILY HISTORY: No reports of Crohn disease or ulcerative colitis. REVIEW OF ORGAN SYSTEMS: CONSTITUTIONAL: No reports of fevers or chills. PHYSICAL EXAM: VITAL SIGNS: Stable GENERAL: Well-developed pleasant in no acute distress. HEENT: No scleral icterus. Extraocular movements grossly intact. Moist buccal mucosa. NECK: Supple without lymphadenopathy. CHEST: Unlabored respirations. Equal bilateral excursions. CARDIOVASCULAR: Regular rate and rhythm. Distal 2+ pulses. ABDOMEN: Soft, nontender, nondistended. MUSCULOSKELETAL: No clubbing, cyanosis, or edema. ASSESSMENT: 1. Colon screen. PLAN: 1. Recommend proceeding with a lower endoscopy Past Medical History Past Medical History: GERD/Reflux, Osteoarthritis (OA), Sleep Apnea/CPAP/BIPAP Additional Past Medical History / Comment(s): no longer using CPAP. History of Any Multi-Drug Resistant Organisms: None Reported Past Surgical History: Bariatric Surgery, Section, Cholecystectomy, Orthopedic Surgery, Tonsillectomy Additional Past Surgical History / Comment(s): lap band placed/3 follow up surgeries then later removed, anterior cervical fusion , gastric bypass 02/14/17 bowel obstruction surgical repair , ESOPHAGUS SURGERY ,PANNICULECTOMY 12-28-18 Past Anesthesia/Blood Transfusion Reactions: No Reported Reaction Past Alcohol Use History: Rare - Past Family History Father Family Medical History: No Reported History Mother Family Medical History: Pulmonary Embolus Medications and Allergies Home Medications Medication Instructions Recorded Confirmed Type Gabapentin 600 mg PO TID 01/04/22 01/07/22 History Allergies Allergy/AdvReac Type Severity Reaction Status Date / Time Sulfa (Sulfonamide Allergy skin turns Verified 01/07/22 07:03 Antibiotics) red,lethargic omeprazole AdvReac Abdominal Verified 01/07/22 07:03 Pain environmental allergies Allergy Unknown Uncoded 01/07/22 07:03 Surgical - Exam Vital Signs Temp Pulse Resp BP Pulse Ox 97.8 F 58 L 18 134/77 96 01/07/22 07:10 01/07/22 07:10 01/07/22 07:10 01/07/22 07:10 01/07/22 07:10
[2022-01-07] MEDS ORDERED: PROPOFOL 10 MG/ML 20 ML VIAL IV ONE (07:33)
[2022-01-07 07:54] VITALS: RESP 16
--- NOTE | 2022-01-07 07:55 | P.PCN ---
Date of Procedure: 01/07/22 Description of Procedure: PREOPERATIVE DIAGNOSIS: Colonoscopy screening. POSTOPERATIVE DIAGNOSIS: Colonoscopy screening. OPERATION: Colonoscopy to the cecum, ileocecal valve and appendiceal orifice. SURGEON: Roya Senior MD. ANESTHESIA: MAC. INDICATIONS: The patient is a 61-year-old female who presents for colonoscopy screening. Benefits and risks were described and informed consent was obtained. DESCRIPTION OF PROCEDURE: The patient had undergone Sutab prep. The patient had been brought into the operating room and laid in the left lateral decubitus position. After adequate intravenous sedation, the rectum was examined with 2% lidocaine jelly. No external hemorrhoids were encountered. The rectal tone was within normal limits. No lesions were palpated in the rectal vault. An Olympus colonoscope was advanced until the cecum, ileocecal valve and appendiceal orifice were clearly viewed. The prep was good. No scattered diverticulosis was encountered. No colonic polyps were found. No evidence of focal colitis was found. Retroflexion of the scope demonstrated grade 2 internal hemorrhoids without active bleeding or inflammation. The colon was desufflated. The patient had tolerated the procedure well. Withdrawal time was over 6 minutes. FINDINGS: Aronchick preparation quality scale 2 (1-5) Internal hemorrhoids, grade 2 No external prolapsed hemorrhoids. No arteriovenous malformations. No adenomatous polyps. No focal colitis. RECOMMENDATIONS: Lower endoscopy 2031 Plan - Discharge Summary Discharge Rx Participant: No New Discharge Prescriptions: Continue Gabapentin 600 mg PO TID Discharge Medication List Gabapentin 600 mg PO TID 01/04/22 [History] Follow up Appointment(s)/Referral(s): Roya Senior MD [STAFF PHYSICIAN] - As Needed Patient Instructions/Handouts: *[facility] - (Anesthesia) Endoscopy Discharge Instructions, Colonoscopy (GEN) Activity/Diet/Wound Care/Special Instructions: Repeat colonoscopy 2031 Discharge Disposition: HOME SELF-CARE
[2022-01-07 08:06] VITALS: BP 108/72; PULSE 51
== END 2022-01-07 08:42 | disposition home or self-care (01) ==
LOC: ORWHC2ENDO 06:44
PROVIDERS: ATTEND Surgery Plastic and Reconstructive Surgery
DX: Z12.11 Encounter for screening for malignant neoplasm of colon (principal); K64.8 Other hemorrhoids; M19.90 Unspecified osteoarthritis, unspecified site; K21.9 Gastro-esophageal reflux disease without esophagitis; G47.33 Obstructive sleep apnea (adult) (pediatric)
CPT/HCPCS: J2704; G0121

== ENCOUNTER → 2022-01-11 | Outpatient (CLI) | payer BC ==
--- NOTE | 2022-01-11 11:26 | P.CON ---
Consult Note - . Consult date: 01/11/22 Assessment/Plan:: HISTORY OF PRESENT ILLNESS: 61 year old female as a referral from Dr Ayala with R foot pain x 2 years due to a rolling cart rolling over her foot and pressing against it for several minutes presents today for R foot pain evaluation. Patient states her right foot pain is 3 out of 10 in intensity throbbing, aching, constant but escalates as high as 10 out of 10 in intensity with weight bearing and constant tenderness to palpation. Pain is relieved with medications, ice, heat, physical therapy with massage 2 years ago, compression and rest. Past Medical History: GERD/Reflux, Osteoarthritis (OA), Sleep Apnea/CPAP/BIPAP Past Surgical History: Anterior Cervical Fusion, Gastric Bypass Surgery, Bowel Obstruction Surgery, Section, Orthopedic Surgery, Tonsillectomy, Social History: Former tobacco user. Occassional ETOH. No illicit drug use. Works at [employer]. Family History: Father- None. Mother- P.E. All: See list Meds: See list REVIEW OF ORGAN SYSTEMS: CONSTITUTIONAL: No fevers or chills. No recent weight loss. HEENT: No visual acuity loss, eye pain, difficulties with hearing. No nosebleeds. No difficulty swallowing. RESPIRATORY: Denies any troubles with breathing or dyspnea on exertion. CARDIOVASCULAR: Denies any chest pain, palpitations, or recent heart attacks. GASTROINTESTINAL: Denies fatty food intolerance. Has change in bowel habits and gas bloat. GENITOURINARY: Denies any blood in urine. Has increased urinary frequency. NEUROLOGICAL: + numbness and tingling along the distal extremities. No seizure disorders or headaches. MUSCULOSKELETAL: + back pain SKIN: No skin cancer. No rash. PSYCHIATRIC: Denies current depression or suicidal thoughts. ENDOCRINE: Denies current thyroid disorders. Denies any blood sugar glucose intolerance. HEME/LYMPHATIC: Denies any lumps and bumps around the neck. History of deep venous thrombosis. ALLERGY/IMMUNOLOGY: No immunoglobulin therapy. No immune deficiencies. BREAST: Denies current breast lumps, pain or nipple discharge. Physical Examinations : Constitutional : Cooperative , not in acute distress . HEENT: Neck supple. No Lymphadenopathy. Normal thyroid size . Eyes no ptosis , no icterus, no photophobia . Hearing intact. Normal oropharynx. No Thrush. Respiratory : Chest clear to auscultations bilaterally. No wheezing. No rhonchi. Cardiovascular : Regular rate and rhythm , S1 / S2. No S3 . No S4. Gastrointestinal : Abdomen soft. No tenderness. Bowel sounds x 4. No organomegaly . Genitourinary : Deferred. Neurologic : Cranial nerve II to XII intact. No focal neurological deficits. Psychiatric : alert & oriented x 3. Matching mood & appropriate affect. Judgment & insight intact. Lymphatic No Lymphadenopathy. Musculoskeletal : Cervical Spine Motor strength in the deltoid and biceps: Normal right side. Normal Left side Motor strength biceps and the wrist extensors: Normal right side . Normal left side Motor strength in the triceps muscle: Normal right side. Normal left side Deep tendon reflexes: Normal at the biceps. Normal at Brachioradialis. Normal at triceps Cervical facet loading test: positive bilaterally Spurling test: positive bilaterally Neck distraction test: positive bilaterally Nitesh sign: positive bilaterally Lumbar spine Motor strength lower extremities ,thigh and legs 5/5 Right side , 5/5 Left side Deep tendon reflexes : Normal Knee Jerk. Normal Ankle Jerk Vertebral body tenderness over Lumbar facet Loading Test: positive Right / positive Left Range of motion of the lumbar spine Flexion 30 degrees, extension 10 degrees Straight Leg Raise test: Left/ Right positive at degree Baltazar test: positive right / positive left. Severe tenderness over the Sacroiliac joint on the Right / Left sides Gaenslen test: positive bilaterally Seated flexion test: positive bilaterally. Tenderness to palpation over first through fourth metatarsal on dorsum of R foot Imaging: MRI of R foot reviewed. Assessment/ Plan : Recommendation of lumbar sympathetic nerve block for the right lower extremity May need a series of 3, and a 6 month period, to obtain sufficient pain relief Risks, benefits of procedure discussed and patient verbalized understanding. Denies aspirin or anti- coagulant use. Denies medical history of diabetes. All questions answered. I have spent greater than 50 minutes on patient care today. Dr Barton was available by phone for the evaluation of this patient. The time was used to review the medical records including relevant urine studies and Prescription history (MAPs), review of the available imaging, evaluation and examination of the patient, coordination of care with the medical staff and if applicable referring physicians, as well as creation of the medical record PQRS Measure Charge Sheet PQRS Narrative: Smoking Status Former smoker Home Medications: Ambulatory Orders Gabapentin 600 mg PO TID 01/04/22
[2022-01-11 12:15] VITALS: BP 140/81; PULSE 57; RESP 18; TEMP 98.4
== END ==
LOC: PNWHC3 10:29
PROVIDERS: ATTEND Physician Assistant Medical
DX: G90.521 Complex regional pain syndrome I of right lower limb (principal); M19.90 Unspecified osteoarthritis, unspecified site; Z87.891 Personal history of nicotine dependence; Z88.2 Allergy status to sulfonamides; Z88.8 Allergy status to other drugs, medicaments and biological substances; Z91.09 Other allergy status, other than to drugs and biological substances
CPT/HCPCS: 99211

== ENCOUNTER 2022-02-11 07:43 | Day surgery (SDC) | payer BC, OTHER ==
[2022-02-09 13:56] VITALS: BMI 34.2
[2022-02-11] MEDS ORDERED: LACTATED RINGERS 1,000 ML IV ONE (07:54)
[2022-02-11 08:07] VITALS: TEMP 97.1
[2022-02-11] MEDS ORDERED: ROPIVACAINE 5MG/ML 20ML VIAL ONE (08:21)
[2022-02-11] MEDS ORDERED: MIDAZOLAM 2 MG/2 ML VIAL ONE (08:21)
[2022-02-11] MEDS ORDERED: IOPAMIDOL M200 10 ML VIAL ONE (08:21)
[2022-02-11] MEDS ORDERED: DEXAMETHASONE SOD PHOSPHATE 10 MG/ML 1 ML VIAL ONE (08:21)
[2022-02-11] MEDS ORDERED: fentaNYL (PF) 50 MCG/ML 2 ML AMP ONE (08:21)
--- NOTE | 2022-02-11 08:39 | P.PCN ---
Date of Procedure: 02/11/22 Preoperative Diagnosis: CRPS Right foot Description of Procedure: PREOPERATIVE DIAGNOSIS: complex regional pain syndrome.Type I , right foot. POSTOPERATIVE DIAGNOSIS: complex regional pain syndrome.Type I , right foot . PROCEDURE: right side lumbar sympathetic block with fluoroscopic guidance ANESTHESIA: Local with 1% lidocaine; IV sedation with Versed and fentanyl. EBL: None. PROCEDURE INDICATION: The patient was referred from her surgeon for a diagnosis of CRPS in the right foot. Patient reports pain in the right foot without significant temperature or sensory changes PROCEDURE DESCRIPTION: The patient was seen and identified in the preoperative area. Risks, benefits, complications, and alternatives were discussed with the patient. The patient agreed to proceed with the procedure and signed the consent. IV was started, and vital signs were stable. Patient was taken to the OR and time out was completed. The patient was placed in the prone position on procedure table and a pillow was placed under the abdomen to reduce lumbar lordosis. The lumbosacral area was prepped and draped in the usual sterile fashion. Critical pause was taken. Vital signs were closely monitored during the procedure. Fluoroscopy was used to identify the L3 vertebra and target points were marked.5 cc Lidocaine 1% was used with a 25 guage needle to achieve adequate local anesthesia of the skin and subcutaneous tissue. Two 22-guage,5-inch spinal needle was inserted through the skin at the lateral border of the right side of L3 vertebral body and then advanced under fluoroscopic guidance in oblique, anterior, and lateral views. The needles were advanced to the guilherme-lateral border of the vertebra from the left side and 3cc of isovue 200 was injected to confirm needle position. After satisfactory positioning of the needles, and negative aspiration of blood, CSF 20cc of 0.25 % preservative free ropivacaine with 10 mg dexamethasone was injected with intermittent aspiration. [place] were withdrawn intact. COMPLICATIONS: None. COMMENTS: DISPOSITION / PLANS: The patient was placed in a supine position and transferred to the recovery area in a stable condition for observation and was discharged from the recovery room after meeting discharge criteria. Home discharge instructions given to the patient by the staff. The patient was reexamined prior to discharge. The patient will schedule a follow up in the clinic
[2022-02-11] MEDS ORDERED: IV FLUID CONTINUATION 1,000 ML IV ONE (08:42)
--- NOTE | 2022-02-11 08:54 | FL ---
EXAMINATION TYPE: FL guided pain mgmt statistic DATE OF EXAM: 02/11/2022 CLINICAL HISTORY: Sympathetic nerve block TECHNIQUE: Fluoroscopy guided sympathetic nerve block. COMPARISON: CT dated 10/04/2018 FINDINGS: Fluoroscopic guidance was provided during the procedure. A total of 10 seconds of fluorosc opic time was utilized during the procedure and 1 spot image was acquired. IMPRESSION: As Above.
[2022-02-11 09:14] VITALS: PULSE 60; RESP 16
[2022-02-11 09:16] VITALS: BP 126/79
== END 2022-02-11 09:31 | disposition home or self-care (01) ==
LOC: ORPAIN 07:43
PROVIDERS: ATTEND Hospitalist
DX: G90.521 Complex regional pain syndrome I of right lower limb (principal)
CPT/HCPCS: 64520; J2250; J1100; J3010; Q9966; J2795; 99152

== ENCOUNTER 2023-05-16 07:26 | Emergency (ER) | payer BC, OTHER ==
[2023-05-16] MEDS ORDERED: HYDROcodone/APAP 5-325MG 1 EACH TAB PO STA (07:55)
[2023-05-16] MEDS ORDERED: IBUPROFEN 600 MG TAB PO STA (07:55)
--- NOTE | 2023-05-16 08:28 | XR ---
EXAMINATION TYPE: XR ankle complete LT DATE OF EXAM: 05/16/2023 COMPARISON: 07/02/2019 HISTORY: Pain following fall TECHNIQUE: 3 view left ankle FINDINGS: Calcaneal heel spurs are noted. Ankle mortise is intact. Soft tissues are normal. No acute fracture or dislocation is evident. Follow-up exam be performed 7-10 days from acute trauma for continued pain. IMPRESSION: 1. No acute osseous abnormality left ankle. 2. Calcaneal heel spurs
--- NOTE | 2023-05-16 08:30 | XR ---
EXAMINATION TYPE: XR foot complete LT DATE OF EXAM: 05/16/2023 COMPARISON: None HISTORY: Left foot pain TECHNIQUE: 3 view left foot FINDINGS: There is a small calcification adjacent to the distal calcaneus. Small avulsion is not excl uded. This is not identified on additional images. Correlate with location of the patient's pain. No acute fractures or dislocations are otherwise evident. Soft tissues appear normal. Calcaneal heel spurs are present. Follow up exams can be performed 7-10 days from acute trauma for continued pain. IMPRESSION: 1. Suspected small avulsion from the distal lateral calcaneus on the AP projection. Correlate with l ocation of patient's pain. 2. No additional areas suspicious for fracture radiographically apparent.
--- NOTE | 2023-05-16 09:27 | ED ---
Lower Extremity Injury HPI - General Chief Complaint: Extremity Injury, Lower Stated Complaint: L foot/ankle injury Time Seen by Provider: 05/16/23 07:37 Source: patient, family, RN notes reviewed Mode of arrival: wheelchair Limitations: no limitations - History of Present Illness Initial Comments: This is a 62-year-old female who presents to the emergency department for left ankle pain. Patient states that she was standing on a ledge 1-2 ft high to look at her gutters, when she accidentally stepped off of it wrong and injured her left foot and ankle. Trying to ambulate since has been very painful. Denies any fevers, chills, sore throat, cough, dyspnea, chest pain, palpitations, abdominal pain, nausea, vomiting, diarrhea, back pain, or headaches. MD Complaint: ankle injury - Related Data Home Medications Medication Instructions Recorded Confirmed Gabapentin 600 mg PO TID 01/04/22 02/11/22 Previous Rx's Medication Instructions Recorded HYDROcodone/APAP 5-325MG [[place] 1 tab PO Q6HR PRN 3 Days #12 tab 05/16/23 5-325] Ibuprofen [Motrin] 800 mg PO Q8H PRN #30 tab 05/16/23 Allergies Allergy/AdvReac Type Severity Reaction Status Date / Time Sulfa (Sulfonamide Allergy skin turns Verified 05/16/23 07:31 Antibiotics) red,lethargic omeprazole AdvReac Abdominal Verified 05/16/23 07:31 Pain environmental allergies Allergy Unknown Uncoded 05/16/23 07:31 Review of Systems ROS Statement: Those systems with pertinent positive or pertinent negative responses have been documented in the HPI. ROS Other: All systems not noted in ROS Statement are negative. Past Medical History Past Medical History: Cancer, GERD/Reflux, Osteoarthritis (OA) Additional Past Medical History / Comment(s): pain rt foot- crushing injury-foot ran over with a heavy cart, skin cancer, History of Any Multi-Drug Resistant Organisms: None Reported Past Surgical History: Bariatric Surgery, Section, Cholecystectomy, Orthopedic Surgery, Tonsillectomy Additional Past Surgical History / Comment(s): lap band placed/3 follow up surgeries then later removed, anterior cervical fusion , gastric bypass, bowel obstruction surgical repair , ESOPHAGUS SURGERY (esophagus surgery after dilation procedure for stricture) ,PANNICULECTOMY , right foot , skin cancer spots Past Anesthesia/Blood Transfusion Reactions: No Reported Reaction Past Psychological History: No Psychological Hx Reported Smoking Status: Former smoker Past Alcohol Use History: Rare Past Drug Use History: None Reported - Past Family History Mother Family Medical History: Pulmonary Embolus General Exam Limitations: no limitations General appearance: alert, in no apparent distress Head exam: Present: atraumatic, normocephalic, normal inspection Respiratory exam: Present: normal lung sounds bilaterally. Absent: respiratory distress, wheezes, rales, rhonchi, stridor Cardiovascular Exam: Present: regular rate, normal rhythm, normal heart sounds. Absent: systolic murmur, diastolic murmur, rubs, gallop, clicks Extremities exam: Present: other (Tenderness to palpation over the dorsal aspect of the left foot and lateral malleolus.) Neurological exam: Present: alert, oriented X3, CN II-XII intact Psychiatric exam: Present: normal affect, normal mood Skin exam: Present: warm, dry, intact, normal color. Absent: rash Course Vital Signs 05/16/23 05/16/23 07:32 10:18 Temperature 98.6 F 97.8 F Pulse Rate 75 53 L Respiratory 18 16 Rate Blood Pressure 133/81 121/82 O2 Sat by Pulse 96 96 Oximetry Procedures - Orthopedic Splinting/Casting Injury #1 Side: left Lower Extremity Injury Location: ankle, foot Lower Extremity Immobilizer: posterior splint, stirrup splint Medical Decision Making - Medical Decision Making This is a 62-year-old female who presents to the emergency department for left foot and ankle pain after a fall. Was pt. sent in by a medical professional or institution? @ -No Did you speak to anyone other than the patient for history? @ -No Did you review nursing and triage notes? @ -Yes, and I agree, it is accurate with regards to the patient's symptoms. Were old charts reviewed? @ -No Differential Diagnosis? @ -Differential Ankle Pain: Fracture, dislocation, contusion, sprain, this is not meant to be an all- inclusive list. EKG interpreted by me (3pts min.)? @ -Not obtained X-rays interpreted by me (1pt min.)? @ -XR of the left foot and ankle obtained. My interpretation identifies a possible fracture near the distal calcaneus. CT interpreted by me (1pt min.)? @ -Not obtained U/S interpreted by me (1pt. min.)? @ -Not obtained What testing was considered but not performed? (CT, X-rays, U/S, labs)? Why? @ -None What meds were considered but not given? Why? @ -None Did you discuss the management of the patient with other professionals? @ -No Did you reconcile home meds? @ -No Was smoking cessation discussed for >3mins.? @ -No Was critical care preformed (if so, how long)? @ -No Were there social determinants of health that impacted care today? How? (Homelessness, low income, unemployed, alcoholism, drug addiction, transportation, low edu. Level, literacy, decrease access to med. care, fci, rehab)? @ -No Was there de-escalation of care discussed even if they declined? (Discuss DNR or withdrawal of care, Hospice)? @ -No What co-morbidities impacted this encounter? (DM, HTN, Smoking, COPD, CAD, Cancer, CVA, Hep., AIDS, mental health diagnosis, sleep apnea, morbid obesity)? @ -OA Was patient admitted / discharged? @ -Discharged. X-ray of the left foot and ankle obtained and a small avulsion fracture from the distal lateral calcaneus could not be excluded. Findings reviewed with the patient. Posterior stirrup splint applied. I offered crutches however the patient refused. Rx for Ibuprofen and [place] provided with dosing instructions reviewed. Advised she take the [place] sparingly when her pain is the most severe. Information for orthopedic follow up provided as well. Undiagnosed new problem with uncertain prognosis? @ -None Drug Therapy requiring intensive monitoring for toxicity (Heparin, Nitro, Insulin, Cardizem)? @ -None Were any procedures done? @ -Posterior stirrup splint application Diagnosis/symptom? @ -Avulsion fracture of calcaneus Acute, or Chronic, or Acute on Chronic? @ -Acute Uncomplicated (without systemic symptoms) or Complicated (systemic symptoms)? @ -Uncomplicated Side effects of treatment? @ -None Exacerbation, Progression, or Severe Exacerbation] @ -Not applicable Poses a threat to life or bodily function? @ -No Return precautions reviewed in depth, the patient is instructed to return to the emergency department with any new, worsening, or concerning symptoms. Patient verbalized understanding. This case was discussed in detail with the attending ED physician, Dr. Patiño. Presentation, findings, and treatment plan discussed in detail as well. - Radiology Data Radiology results: report reviewed, image reviewed Disposition Clinical Impression: Avulsion fracture of calcaneus Disposition: HOME SELF-CARE Instructions (If sedation given, give patient instructions): Calcaneal Fracture (ED), Splint Care (ED) Additional Instructions: Return to the emergency department with any new, worsening, or concerning symptoms. Alternate with ibuprofen and Tylenol as needed for pain relief. Do not drive or operate machinery when taking the [place]. Apply ice for 15-20 minutes every 2-3 hours. Contact orthopedics as listed below for a follow-up appointment. Prescriptions: Ibuprofen [Motrin] 800 mg PO Q8H PRN #30 tab PRN Reason: Pain HYDROcodone/APAP 5-325MG [[place] 5-325] 1 tab PO Q6HR PRN 3 Days #12 tab PRN Reason: Pain Is patient prescribed a controlled substance at d/c from ED?: Yes Referrals: Sanjuana Pulliam III, MD [Primary Care Provider] - 1-2 days Shira Kirk DO [Doctor of Osteopathic Medicine] - 1-2 days
[2023-05-16] MEDS ORDERED: IBUPROFEN 600 MG STARTER PACK 4 TAB BTL PO STA (09:47)
[2023-05-16] MEDS ORDERED: ACET/COD 300 MG/30 MG STARTER PACK 6 TAB BTL PO STA (09:47)
[2023-05-16 10:20] VITALS: BP 121/82; PULSE 53; RESP 16; TEMP 97.8
== END 2023-05-16 10:20 | disposition home or self-care (01) ==
LOC: EC 07:26
DX: S92.032A Displaced avulsion fracture of tuberosity of left calcaneus, initial encounter for closed fracture (principal); Z88.2 Allergy status to sulfonamides; Z88.8 Allergy status to other drugs, medicaments and biological substances; Z87.891 Personal history of nicotine dependence; W50.0XXA Accidental hit or strike by another person, initial encounter
CPT/HCPCS: 29515; 99284

== ENCOUNTER → 2023-11-17 | Outpatient (CLI) | payer BC ==
--- NOTE | 2023-11-17 09:32 | US ---
EXAMINATION TYPE: US transvaginal DATE OF EXAM: 11/17/2023 COMPARISON: NONE CLINICAL INDICATION: Female, 62 years old with history of N92.1 EXCESSIVE AND FREQUENT MENSTRUATION W ITH IRR; Patient states she was put on steroids in October and has been bleeding since TECHNIQUE: Transvaginal (TV). Transabdominal sonographic images of the pelvis were acquired. Trans vaginal sonographic images were medically necessary to better assess the following anatomy: Date of LMP: 10 + years ago EXAM MEASUREMENTS: Uterus: 7.9 x 4.2 x 5.8 cm Endometrial Stripe: 0.72 cm 1. Uterus: Anteverted Hyperechoic mass-like area noted adjacent to endometrium measuring 1.8 x 1.7 x 1.5 cm 2. Endometrium: 0.7 cm 3. Right Ovary: Obscured by overlying bowel gas 4. Left Ovary: Obscured by overlying bowel gas 5. Bilateral Adnexa: wnl 6. Posterior cul-de-sac: wnl IMPRESSION: 1. Isoechoic nodule posterior fundus uterus. Correlate for fibroid.
== END | disposition home or self-care (01) ==
LOC: RADUSWWP 07:13
PROVIDERS: ATTEND Family Medicine
DX: N85.8 Other specified noninflammatory disorders of uterus (principal); N92.1 Excessive and frequent menstruation with irregular cycle; N93.9 Abnormal uterine and vaginal bleeding, unspecified
CPT/HCPCS: 76830

== ENCOUNTER 2025-04-24 11:25 | Day surgery (SDC) | payer BC ==
[2025-04-22 16:03] VITALS: BMI 35.2
[~2025-04-24 11:25] MED LIST changes: -LACTATED RINGERS 1,000 ML IV SCH; +LIDOCAINE 1% (10MG/ML) FOR IV START INTRADERMA PRN; +TETRACAINE 0.5% OPHTH (PF) DROPS 4 ML BTL OP PRN
[2025-04-24] MEDS: IV FLUID CONTINUATION 1,000 ML IV ONE (12:34)
[2025-04-24 12:36] VITALS: TEMP 97.2
[2025-04-24] MEDS: CYCLOPENTOLATE 1% OPHTH SOLN 2 ML BTL OP PRN (12:44)
[2025-04-24] MEDS: PHENYLEPHRINE 2.5% OPHTH DRP 2ML OP PRN (12:47)
[2025-04-24] MEDS: LACTATED RINGERS 1,000 ML IV SCH (12:59)
[2025-04-24] MEDS ORDERED: MIDAZOLAM 2 MG/2 ML VIAL ONE (13:28)
[2025-04-24] MEDS ORDERED: fentaNYL (PF) 50 MCG/ML 2 ML AMP ONE (13:28)
[2025-04-24] MEDS: BALANCED SALT IRRIG SOLN COMB2 15 ML IRRIG.SOLN INTRAOCULA ONE (13:39)
[2025-04-24] MEDS: HYALURONATE SODIUM INTRAOCULAR 1 EACH SYRINGE (12MG/ML) INTRAOCULA ONE (13:39)
[2025-04-24] MEDS: LIDOCAINE 1% (PF) 10MG/ML VIAL MISCELLANE ONE (13:40)
[2025-04-24] MEDS: TIMOLOL 0.5% OPHTH DROPS 5 ML BTL OP PRN (13:40)
[2025-04-24] MEDS: EPINEPHrine (PF) 0.3 ML in BALANCED SALT IRRIG SOLN COMB2 500 ML IRRIGATION ONE (13:40)
[2025-04-24] MEDS: MOXIFLOXACIN HCL 0.5% DROPS 3 ML BTL OP PRN (13:40)
--- NOTE | 2025-04-24 13:53 | P.OP ---
Date of Procedure: 04/24/25 Preoperative Diagnosis: NS & CS Postoperative Diagnosis: same Procedure(s) Performed: PIOL, OS Implants: [id number] 21.50 Anesthesia: MAC Surgeon: Dillan Elliott Pathology: none sent Condition: stable Disposition: same day Indications for Procedure: blurry vision Operative Findings: no complications
[2025-04-24 14:13] VITALS: BP 130/80; PULSE 52; RESP 16
--- NOTE | 2025-04-25 01:14 | OP ---
OPERATIVE REPORT DATE OF SERVICE : 04/24/2025 PREOPERATIVE DIAGNOSES: 1. Nuclear sclerosis. 2. Cortical sclerosis. POSTOPERATIVE DIAGNOSES: 1. Nuclear sclerosis. 2. Cortical sclerosis. OPERATION: Phacoemulsification of cataract and interocular lens implant of the left eye. ESTIMATED BLOOD LOSS: Zero. SPECIMEN TAKEN: None. NARRATIVE: After obtaining the appropriate consent, the patient was brought to the operating room where the patient was placed under cardiac monitoring and prepped and draped in the usual sterile manner. At the 5 o'clock position, a 15-degree super sharp blade was used to create a paracentesis followed by instillation of 1% Xylocaine MPF 50:50 mix with BSS into the anterior chamber. This was followed by Amvisc viscoelastic to stabilize the anterior chamber. At the 3 o'clock position a self-sealing corneal flap incision was created using 2.8 mm naeem keratome. A cystotome was used to initiate a continuous tear capsulorrhexis which was completed with the Utrata forceps. A Binkhorst cannula was used to hydrodissect the lens nucleus followed by hydrodelineation. Phacoemulsification of the lens was performed utilizing phacochop in 9.08 seconds at 10.7% power. The remaining cortical material was removed using the irrigation aspiration mode followed by additional 1% Xylocaine MPF into the anterior chamber followed by viscoelastic to stabilize the capsular bag. A Crow and Crow, model DCB00, 21.5 diopters posterior chamber lens was placed into the capsular bag without difficulty. The remaining viscoelastic material was removed from the anterior chamber with the irrigation/aspiration. Balanced salt solution was used to normalize the intraocular pressure. The incision was checked for watertight integrity. The patient then received 2 drops of 0.5% timolol followed by 2 drops Vigamox, was lightly patched and shielded in the usual manner. There were no complications from the procedure. The patient tolerated the procedure well and was returned to recovery in good condition. MMODL / IJN: [id number] /
== END 2025-04-24 14:32 | disposition home or self-care (01) ==
LOC: OR 11:25
PROVIDERS: ATTEND Ophthalmology
DX: H25.12 Age-related nuclear cataract, left eye (principal); E07.9 Disorder of thyroid, unspecified; M19.90 Unspecified osteoarthritis, unspecified site; Z79.890 Hormone replacement therapy; Z79.899 Other long term (current) drug therapy; Z90.49 Acquired absence of other specified parts of digestive tract; Z98.890 Other specified postprocedural states; Z88.2 Allergy status to sulfonamides; Z88.8 Allergy status to other drugs, medicaments and biological substances
CPT/HCPCS: 66984; V2632; J2250; J0171; J3010; J2003

== ENCOUNTER 2025-05-08 09:59 | Day surgery (SDC) | payer BC ==
[~2025-05-08 09:59] MED LIST changes: -LIDOCAINE 1% (10MG/ML) FOR IV START INTRADERMA PRN
[2025-05-08] MEDS: CYCLOPENTOLATE 1% OPHTH SOLN 2 ML BTL OP PRN (10:27)
[2025-05-08 10:30] VITALS: TEMP 97
[2025-05-08] MEDS: PHENYLEPHRINE 2.5% OPHTH DRP 2ML OP PRN (10:30)
[2025-05-08] MEDS: IV FLUID CONTINUATION 1,000 ML IV ONE (10:40)
[2025-05-08] MEDS: LACTATED RINGERS 1,000 ML IV SCH (10:41)
[2025-05-08] MEDS ORDERED: MIDAZOLAM 2 MG/2 ML VIAL ONE (13:07)
[2025-05-08] MEDS ORDERED: fentaNYL (PF) 50 MCG/ML 2 ML AMP ONE (13:07)
[2025-05-08] MEDS: HYALURONATE SODIUM INTRAOCULAR 1 EACH SYRINGE (12MG/ML) INTRAOCULA ONE (13:20)
[2025-05-08] MEDS: TIMOLOL 0.5% OPHTH DROPS 5 ML BTL OP PRN (13:21)
[2025-05-08] MEDS: MOXIFLOXACIN HCL 0.5% DROPS 3 ML BTL OP PRN (13:21)
[2025-05-08] MEDS: LIDOCAINE 1% (PF) 10MG/ML VIAL MISCELLANE ONE (13:21)
[2025-05-08] MEDS: EPINEPHrine (PF) 0.3 ML in BALANCED SALT IRRIG SOLN COMB2 500 ML IRRIGATION ONE (13:22)
[2025-05-08] MEDS: BALANCED SALT IRRIG SOLN COMB2 15 ML IRRIG.SOLN IRRIGATION ONE (13:25)
--- NOTE | 2025-05-08 13:33 | P.OP ---
Date of Procedure: 05/08/25 Preoperative Diagnosis: NS & CS Postoperative Diagnosis: same Procedure(s) Performed: PIOL< OD Implants: [id number] 21.50 Anesthesia: MAC Hand Expansion Envelope Maker #1: Dillan Elliott Pathology: none sent Condition: stable Disposition: same day Indications for Procedure: blurry vision Operative Findings: no complications
[2025-05-08 13:51] VITALS: BP 157/89; PULSE 53; RESP 18
--- NOTE | 2025-05-09 09:35 | OP ---
OPERATIVE REPORT DATE OF SERVICE : 05/08/2025 PREOPERATIVE DIAGNOSES: 1. Nuclear sclerosis. 2. Cortical sclerosis. POSTOPERATIVE DIAGNOSES: 1. Nuclear sclerosis. 2. Cortical sclerosis. OPERATION: Phacoemulsification of cataract and interocular lens implant, left eye. ESTIMATED BLOOD LOSS: Zero. SPECIMEN TAKEN: None. NARRATIVE: After obtaining the appropriate consent, the patient was brought to the operating room where the patient was placed under cardiac monitoring and prepped and draped in the usual sterile manner. At the 11 o'clock position, a 15-degree super sharp blade was used to create a paracentesis followed by instillation of 1% Xylocaine MPF 50:50 mix with BSS into the anterior chamber. This was followed by Amvisc viscoelastic to stabilize the anterior chamber. At the 9 o'clock position a self-sealing corneal flap incision was created using 2.8 mm naeem keratome. A cystotome was used to initiate a continuous tear capsulorrhexis which was completed with the Utrata forceps. A Binkhorst cannula was used to hydrodissect the lens nucleus followed by hydrodelineation. Phacoemulsification of the lens was performed utilizing phacochop in 7.29 seconds at 13.2% power. The remaining cortical material was removed using the irrigation aspiration mode followed by additional 1% Xylocaine MPF into the anterior chamber followed by viscoelastic to stabilize the capsular bag. A Crow and Crow, model DCB00, 21.5 diopters posterior chamber lens was placed into the capsular bag without difficulty. The remaining viscoelastic material was removed from the anterior chamber with the irrigation/aspiration. Balanced salt solution was used to normalize the intraocular pressure. The incision was checked for watertight integrity. The patient then received 2 drops of 0.5% timolol followed by 2 drops Vigamox, was lightly patched and shielded in the usual manner. There were no complications from the procedure. The patient tolerated the procedure well and was returned to recovery in good condition. MMODL / IJN: [id number] /
== END 2025-05-08 14:11 | disposition home or self-care (01) ==
LOC: OR 09:59
PROVIDERS: ATTEND Ophthalmology
DX: H25.12 Age-related nuclear cataract, left eye (principal); H25.012 Cortical age-related cataract, left eye; E11.36 Type 2 diabetes mellitus with diabetic cataract; I10 Essential (primary) hypertension; E66.9 Obesity, unspecified; Z79.84 Long term (current) use of oral hypoglycemic drugs; Z79.899 Other long term (current) drug therapy; Z68.35 Body mass index [BMI] 35.0-35.9, adult
CPT/HCPCS: 66984; V2632; J2250; J0171; J3010; J2003